=== PATIENT | female | born 1945 | race Caucasian/White ===

== ENCOUNTER 2019-11-22 08:52 | Outpatient (CLI) | payer OTHER, SELFPAY ==
--- NOTE | ~2019-11-22 | CT_ITS ---
EXAMINATION: CTA chest DATE: 11/22/2019 10:02 INDICATION: Aortic aneurysm TECHNIQUE: Computed tomographic angiography (CTA) of the chest was performed with 100 mL Omnipque-350 intravenous contrast. Maximum intensity projection 3D-reconstructions of the aorta and other arterie s were constructed by the technologist on a separate workstation. The dose-length product (DLP) was 2 94.79 mGy-cm. Automated exposure control and iterative reconstruction technique were employed. COMPARISON: 11/11/2018 FINDINGS: There is a stable 4.3 x 4.0 cm fusiform aneurysm of the ascending aorta. No aortic dissecti on is identified. There is mild dependent atelectasis. Scattered 1 to 2 mm pulmonary nodules are like ly infectious or inflammatory. There is no pleural effusion or pneumothorax. The heart size is normal . There are no pathologically enlarged thoracic lymph nodes. There is mild thoracic spondylosis. IMPRESSION: 1. Stable fusiform aneurysm of the ascending aorta without dissection. Reviewed, dictated and finalized at location A.
[2019-11-22 09:42] LABS: Estimated Glomerular Filt Rate > 60
== END 2019-11-22 08:53 | disposition home or self-care (01) ==
LOC: ANHIMG 08:55
PROVIDERS: PCP Family Medicine Adolescent Medicine; Visit Provider Internal Medicine Cardiovascular Disease
DX: I71.4 Abdominal aortic aneurysm, without rupture (principal)
CPT/HCPCS: 36415; 71275; Q9967

== ENCOUNTER 2019-12-06 12:11 | Emergency (ER) | payer OTHER, SELFPAY ==
[2019-12-06] VITALS (10 sets, daily range): BP systolic 112–148; BP diastolic 40–65; PULSE 54–76; RESP 17–24; TEMP 37; O2SAT 99–100
--- NOTE | ~2019-12-06 | XR_ITS ---
EXAMINATION: XR chest 2V 12/06/2019 12:57 INDICATION: Chest pain PROCEDURE: 2 view chest COMPARISON: 01/11/2019 FINDINGS: The lungs are clear. The cardiomediastinal silhouette is within normal limits. There are no pleural effusions. There is no pneumothorax suspected. IMPRESSION: 1: NO ACUTE CARDIOPULMONARY DISEASE. Reviewed, dictated and finalized at location A.
--- NOTE | ~2019-12-06 | CT_ITS ---
EXAMINATION: CTA chest PE protocol EXAM DATE: 12/06/2019 15:29 INDICATION: Intermittent chest pain down right arm. TECHNIQUE: Spiral CTA of the chest (pulmonary arteries) was performed with 100 cc Omnipaque 350 intr avenous contrast injection. Images were acquired during the pulmonary arterial phase. Coronal maxi mum intensity projection 3D-reconstructions were created by the technologist on dedicated workstation . Axial, coronal and sagittal reformatted images were reviewed. The dose-length product (DLP) for t his examination was 263.06 mGy-cm. The exposure was tailored according to patient size (auto mA exp osure control), and iterative reconstruction (ASIR) was used as additional dose reduction technique. Comparison is made to prior examination from 11/22/2019. FINDINGS: Pulmonary arteries are well opacified and without intraluminal filling defects. The ascen ding aorta is again mildly enlarged at 4.4 cm. No dissection.. Mild dependent atelectasis. No conflu ent consolidation. There are no pleural or pericardial effusions. Tracheobronchial tree is patent. There is no mediastinal, hilar or axillary lymphadenopathy. There is no pneumothorax. Heart no rmal in size. No evidence of coronary arterial calcification. Upper abdomen is unremarkable. The re is thoracic spondylosis without osteoblastic or osteolytic lesions identified. IMPRESSION: 1. No pulmonary emboli. 2. Mild ascending aortic aneurysm unchanged. Reviewed, dictated and finalized at location B.
--- NOTE | 2019-12-06 12:14 | ECG_ITS ---
Measurements Intervals [place] Rate: 70 P: 73 AL: 158 QRS: 2 QRSD: 88 T: 46 QT: 371 QTc: 400 Interpretive Statements SINUS RHYTHM INCOMPLETE RIGHT BUNDLE BRANCH BLOCK EARLY PRECORDIAL R/S TRANSITION BASELINE ARTIFACT- I, II BORDERLINE ECG Electronically Signed On 12-06-2019 13:32:23 CDT by Temo Garcia D.O.
[2019-12-06 12:33] LABS: Basophils Absolute Auto 0.1 K/mm3 (0.0-0.1); Basophils Percent Auto 0.9 % (0.2-1.2); Eosinophils Absolute Auto 0.5 K/mm3 (0-0.3); Hematocrit 41.3 % (37.0-47.0); Hemoglobin 13.2 g/dL (12.0-15.0); Immature Granulocyte Absolute 0.03 K/mm3 (0.00-0.031); Immature Granulocyte Percent A 0.3 % (0-0.5); Lymphocytes Absolute Auto 1.86 K/mm3 (0.9-3.2); Lymphocytes Percent Auto 20.1 % (18.3-44.2); Mean Corpuscular Hemoglobin 27.6 pg (26-34); Mean Corpuscular Volume 86.2 fl (80-100); Mean Platelet Volume 10.4 fl (7.4-10.4); Monocytes Absolute Auto 0.6 K/mm3 (0.1-0.6); Neutrophils Absolute Auto 6.3 K/mm3 (1.3-6.7); Neutrophils Percent Auto 67.7 % (45.5-73.1); Platelet Count Result 280 k/mm3 (150-375); Red Blood Count 4.79 M/mm3 (4.2-5.4); Red Cell Distribution Width 12.8 % (11.5-14.5); White Blood Count 9.2 K/mm3 (4.5-10.0)
[2019-12-06 12:42] LABS: Prothrombin Time 12.6 Seconds (11.1-14.7)
[2019-12-06 12:43] LABS: Partial Thromboplastin Time 27.4 SECONDS (22.3-36.8)
[2019-12-06 12:45] LABS: Blood Urea Nitrogen 18 mg/dL (7-17); Calcium 9.3 mg/dL (8.4-10.2); Carbon Dioxide 29 mmol/L (22-30); Chloride 104 mmol/L (98-107); Estimated Glomerular Filt Rate > 60; Glucose 93 mg/dL (65-105); Potassium 4.1 mmol/L (3.4-5.0); Sodium 140 mmol/L (137-145)
[2019-12-06] MEDS: ASPIRIN 81 MG CHEWABLE TABLET 324 MG PO (12:45)
[2019-12-06 12:56] LABS: Troponin I < 0.012 ng/mL (0.000-0.034)
--- NOTE | 2019-12-06 13:44 | ED.CHESTPAIN ---
HPI - Chest Pain General Chief Complaint: Chest Pain Stated Complaint: Chest Pain Time Seen by Provider: 12/06/19 12:43 Source: patient Mode of arrival: ambulatory Limitations: no limitations History of Present Illness HPI narrative: This is a 74 year old female that presents to the ER for intermittent left-sided chest pain for the last year. Reports this episode started when she woke up this morning. Reports it is aching. Will last sometimes for hours and resolves on its own. Reports she was seen by her carpenters helper earlier this month who increased her metoprolol dose. Reports since she has been feeling more tired. Denies fever, cough or shortness of breath. Related Data Home Medications Medication Instructions Recorded Confirmed amlodipine-benazepril cap 12/06/19 atorvastatin 12/06/19 budesonide [Pulmicort Flexhaler] INHALATION 12/06/19 metoprolol succinate PO 12/06/19 mometasone INTRANASAL 12/06/19 mometasone [Asmanex Twisthaler] INHALATION 12/06/19 Allergies Allergy/AdvReac Type Severity Reaction Status Date / Time No Known Allergies Allergy Verified 12/06/19 12:25 Review of Systems Review of Systems: Narrative: CONSTITUTIONAL: Denies fever CARDIOVASCULAR: Reports chest pain. Denies edema. RESPIRATORY: Denies cough or dyspnea. All systems reviewed & are unremarkable except as noted in HPI and below PMFSH Past Medical History Medical History (Updated 12/06/19 @ 16:28 by Parris Arredondo PA-C) History of asthma History of hyperlipidemia History of hypertension Family History Family History (Updated 06/28/10 @ 11:56 by DOCTOR UNKNOWN) Other Family history of arthritis Hypertension Social History Social History Alcohol intake: current Gender identity (if verbalized by the patient): Female Exam Narrative: Exam Narrative: GENERAL: Elderly, well-nourished, and in no acute distress. HEAD: Normocephalic, atraumatic. EYES: EOMI. NECK: Supple. No adenopathy or masses. No carotid bruits or JVD CHEST: Clear to auscultation. No respiratory distress. No wheezes rales or rhonchi HEART: Regular rate and rhythm. No murmur heard. Normal peripheral pulses. EXTREMITIES: Normal range of motion. No edema. SKIN: Warm, dry, no rash. NEURO: No focal deficits. Alert and oriented x3. PSYCH: Normal mood and affect Course Vital Signs Vital signs: Vital Signs Temperature 98.6 F 12/06/19 12:17 Pulse Rate 65 12/06/19 12:17 Respiratory Rate 24 H 12/06/19 12:17 Blood Pressure 148/65 H 12/06/19 12:17 Pulse Oximetry 100 12/06/19 12:17 Temperature 98.6 F 12/06/19 12:17 Pulse Rate 55 L 12/06/19 14:00 Respiratory Rate 20 12/06/19 14:00 Blood Pressure 112/50 L 12/06/19 14:00 Pulse Oximetry 100 12/06/19 14:00 MDM - Chest Pain MDM Narrative Medical decision making narrative: Patient presents to the emergency department for intermittent chest pain which has been ongoing for at least a year. Reports worsening over the last month. Patient is afebrile and nontoxic-appearing. Vitals are stable. CBC and metabolic panel without concerning changes. EKG without concerning changes. Baseline and 3-hour troponin are negative. D-dimer is elevated so CTA of the chest was obtained which was without pulmonary emboli. She does have a mild ascending aortic aneurysm that is unchanged. Spoke with patient's on-call carpenters helper, Dr. Johnston. Patient had a cardiac catheterization last year which was clear. Patient is felt appropriate for further outpatient evaluation. She is currently chest pain-free. Chest pain does not seem to be exertional in nature. She will follow-up with Dr. Arthur in the next couple days. Patient was given warnings to return to the ER Lab Data Attestation: I reviewed the patient's lab results. Result diagrams: 12/06/19 12:25 12/06/19 12:25 Labs: Lab Results 12/06/19 12/06/19 12/06/19 Range/Units 12:25 12:25 12:25
[2019-12-06 13:57] LABS: D Dimer 0.97 ug/mL (<0.48)
[2019-12-06 15:39] LABS: Troponin I < 0.012 ng/mL (0.000-0.034)
== END 2019-12-06 16:44 | disposition home or self-care (01) ==
PROVIDERS: Physician Assistant; Emergency Provider Emergency Medicine; PCP Family Medicine Adolescent Medicine
DX: R07.9 Chest pain, unspecified (principal); J45.909 Unspecified asthma, uncomplicated; E78.5 Hyperlipidemia, unspecified; I10 Essential (primary) hypertension
CPT/HCPCS: 36415; 71046; 71275; 80048; 84484; 85025; 85380; 85610; 85730; 93005; 99284; A9270; Q9967

== ENCOUNTER 2020-04-06 08:26 | Outpatient (CLI) | payer OTHER, SELFPAY ==
--- NOTE | ~2020-04-06 | MM_ITS ---
EXAMINATION: MM screening [facility] BI w reyna HISTORY: Screening mammogram TECHNIQUE: Craniocaudal and mediolateral oblique 3-D tomosynthesis images were obtained and synthetic 2-D images were generated. CAD analysis was submitted and interpreted. COMPARISON: , 02/2018, 01/28/2017 bilateral digital screening mammogram examinations BREAST PARENCHYMAL COMPOSITION: There are scattered areas of fibroglandular density. FINDINGS: Stable mild fibroglandular asymmetry. There is no evidence of suspicious mass, calcificatio n, or architectural distortion to suggest malignancy in either breast. There has been no suspicious i nterval change. IMPRESSION: 1. No mammographic evidence of malignancy. 2. Recommend routine screening mammography in one year. BI-RADS Category 2: Benign finding(s). Reviewed, dictated and finalized at location A.
== END 2020-04-06 08:27 | disposition home or self-care (01) ==
LOC: ANHIMG 08:27
PROVIDERS: PCP Family Medicine Adolescent Medicine; Visit Provider Obstetrics & Gynecology
DX: Z12.31 Encounter for screening mammogram for malignant neoplasm of breast (principal)
CPT/HCPCS: 77063; 77067

== ENCOUNTER → 2020-07-10 09:49 | Outpatient (CLI) | payer OTHER, SELFPAY ==
--- NOTE | ~2020-07-10 | XR_ITS ---
EXAMINATION: XR chest 2V EXAM DATE: 07/10/2020 10:07 INDICATION: Persistent cough. TECHNIQUE: Frontal and lateral projections of the chest obtained and reviewed. Comparison is made to prior examination from 12/06/2019. FINDINGS: The lungs are clear. There are no pleural effusions. The cardiomediastinal silhouette is within normal limits. There is no pneumothorax suspected. The bones and soft tissues are unremarkab le. There is aortic arteriosclerosis. There is no significant interval change. IMPRESSION: No acute cardiopulmonary findings. Reviewed, dictated and finalized at location B. 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
== END ==
PROVIDERS: PCP Family Medicine Adolescent Medicine; Visit Provider Family Medicine Adolescent Medicine
DX: R05 Cough (principal)
CPT/HCPCS: 71046

== ENCOUNTER 2020-09-03 10:48 | Emergency (ER) | payer OTHER, SELFPAY ==
[2020-09-03] VITALS (10 sets, daily range): BP systolic 112–150; BP diastolic 49–135; PULSE 63–76; RESP 16–29; TEMP 36.9; O2SAT 94–99
--- NOTE | ~2020-09-03 | CT_ITS ---
EXAMINATION: CTA chest EXAM DATE: 09/03/2020 12:05 INDICATION: Left-sided chest pain. Known thoracic aortic aneurysm. TECHNIQUE: Spiral CT of the chest following intravenous injection of 100 mL Omnipaque 350. Axial, co chucky and sagittal images were reviewed. Coronal maximum intensity pixel images of chest reviewed. M aximum intensity projection 3-D reconstructions of the aorta were created by the technologist on [employer] workstation. The dose-length product (DLP) for this examination was 340.09 mGy-cm. The exposu re was tailored according to patient size (auto mA exposure control), and iterative reconstruction (A SIR) was used as additional dose reduction technique. Comparison is made to prior examination from . FINDINGS: The ascending aorta measures 4.5 cm in AP dimension, was 4.4 cm on prior study. There is no thoracic aortic dissection. No central pulmonary emboli. Some small basilar opacities probably subse gmental atelectasis. There are no pleural or pericardial effusions. Tracheobronchial tree is paten t. There is no mediastinal, hilar or axillary lymphadenopathy. There is no pneumothorax. Heart normal in size. No evidence of coronary arterial calcification. The gallbladder is moderately dist ended, with mild wall thickening but no adjacent inflammation. Probably similar appearance to the pre vious exam but check for right upper quadrant tenderness. There is thoracic spondylosis without oste oblastic or osteolytic lesions identified. IMPRESSION: 1. Ascending aortic 4.5 cm aneurysm stable or minimally increased in size. No dissection. 2. Gallbladder is moderately distended, with mild wall thickening but no adjacent inflammation. Prob ably similar appearance to the previous exam, but check for right upper quadrant tenderness. 3. No acute cardiopulmonary findings. Reviewed, dictated and finalized at location A. IMPRESSION: 1. Ascending aortic 4.5 cm aneurysm stable or minimally increased in size. No dissection. 2. Gallbladder is moderately distended, with mild wall thickening but no adjac ent inflammation. Probably similar appearance to the previous exam, but check f or right upper quadrant tenderness. 3. No acute cardiopulmonary findings.
--- NOTE | ~2020-09-03 | XR_ITS ---
XR chest 2V 09/03/2020 12:08 Indication: Left-sided chest pain Procedure: 2 view chest Comparison: Comparison to multiple prior studies sequentially, with oldest reviewed study dated 07/06. Findings: There is lingular atelectasis/scarring. Heart size normal. Right lung clear. No significant pleural effusion, edema or pneumothorax. Impression: 1: Lingular atelectasis/scarring. Reviewed, dictated and finalized at location B. Impression: 1: Lingular atelectasis/scarring.
--- NOTE | 2020-09-03 11:17 | ECG_ITS ---
Measurements Intervals [place] Rate: 68 P: 58 ID: [id number] QRS: -2 QRSD: 84 T: 30 QT: 377 QTc: 403 Interpretive Statements SINUS RHYTHM INCOMPLETE RIGHT BUNDLE BRANCH BLOCK BASELINE WANDER- II, III, V6 BORDERLINE ECG Electronically Signed On 09-03-2020 11:45:42 CDT by Temo Garcia D.O.
[2020-09-03 11:26] LABS: Basophils Absolute Auto 0.1 K/mm3 (0.0-0.1); Basophils Percent Auto 1.1 % (0.2-1.2); Eosinophils Absolute Auto 0.6 K/mm3 (0-0.3); Eosinophils Percent Auto 7.8 % (0-4.4); Hematocrit 44.9 % (37.0-47.0); Hemoglobin 14.4 g/dL (12.0-15.0); Immature Granulocyte Absolute 0.01 K/mm3 (0.00-0.031); Immature Granulocyte Percent A 0.1 % (0-0.5); Lymphocytes Absolute Auto 1.69 K/mm3 (0.9-3.2); Lymphocytes Percent Auto 23.6 % (18.3-44.2); Mean Corpuscular HGB Conc 32.1 g/dl (32-36); Mean Corpuscular Hemoglobin 28.1 pg (26-34); Mean Corpuscular Volume 87.5 fl (80-100); Mean Platelet Volume 10.4 fl (7.4-10.4); Monocytes Absolute Auto 0.5 K/mm3 (0.1-0.6); Monocytes Percent Auto 6.3 % (2.6-8.5); Neutrophils Absolute Auto 4.4 K/mm3 (1.3-6.7); Neutrophils Percent Auto 61.1 % (45.5-73.1); Platelet Count Result 280 k/mm3 (150-375); Red Blood Count 5.13 M/mm3 (4.2-5.4); Red Cell Distribution Width 12.7 % (11.5-14.5); White Blood Count 7.2 K/mm3 (4.5-10.0)
[2020-09-03] MEDS: ASPIRIN 81 MG CHEWABLE TABLET 324 MG PO (11:33)
[2020-09-03 11:37] LABS: Anion Gap 7 mmol/L (8-16); Blood Urea Nitrogen 15 mg/dL (7-17); Calcium 9.9 mg/dL (8.4-10.2); Carbon Dioxide 32 mmol/L (22-30); Chloride 103 mmol/L (98-107); Estimated CRCL calculation 53 ml/min; Estimated Glomerular Filt Rate > 60; Glucose 96 mg/dL (65-105); INR 0.8; Potassium 3.9 mmol/L (3.4-5.0); Sodium 142 mmol/L (137-145)
[2020-09-03 11:38] LABS: Partial Thromboplastin Time 22.8 SECONDS (22.3-36.8)
[2020-09-03 11:40] LABS: D Dimer 1.64 ug/mL (<0.48)
[2020-09-03 11:49] LABS: Troponin I < 0.012 ng/mL (0.000-0.034)
--- NOTE | 2020-09-03 13:55 | ED.CHESTPAIN ---
HPI - Chest Pain General Chief Complaint: Chest Pain Stated Complaint: CHEST PAIN, CLAMMY, SOB Time Seen by Provider: 09/03/20 11:20 Source: patient Mode of arrival: ambulatory Limitations: no limitations History of Present Illness HPI narrative: 75-year-old female Complains of intermittent left-sided chest pain This is been present this time for a couple of days In addition she has kind of a tingly sensation that radiates into both arms Her airport maintenance chief is Dr. Arthur in [place] He is seen her before for these types of symptoms, and she passed a stress test and had a clean cardiac cath in the summer 2018 She has a thoracic aneurysm, stable as far as she knows She has an appointment to see him again this Thursday but was worried so came to get checked out in the meantime She reports no dizziness, no palpitations, no nausea, no shortness of breath but has a clammy sensation She also recently switched around her asthma meds which has benefitted her Related Data Home Medications Medication Instructions Recorded Confirmed amlodipine-benazepril cap 12/06/19 atorvastatin 12/06/19 budesonide [Pulmicort Flexhaler] INHALATION 12/06/19 metoprolol succinate PO 12/06/19 mometasone INTRANASAL 12/06/19 mometasone [Asmanex Twisthaler] INHALATION 12/06/19 Allergies Allergy/AdvReac Type Severity Reaction Status Date / Time No Known Allergies Allergy Verified 09/03/20 10:57 Review of Systems Review of Systems: All systems reviewed & are unremarkable except as noted in HPI and below Constitutional: Constitutional: Denies chills, Denies fatigue, Denies fever(s), Denies headache(s) and Denies weakness Eyes: Eyes: Reports no additional eye complaints and Denies change in vision ENT: Denies headache(s), Denies epistaxis, Denies nasal congestion and Denies sore throat Cardiovascular: Cardiovascular: Reports as per HPI, Reports no additional cardiovascular complaints, Reports chest pain, Denies rapid heart rate, Denies leg edema, Reports radiating jaw, neck or arm pain, Denies palpitations, Denies dyspnea and Denies slow heart rate Respiratory: Respiratory: Denies cough, Denies dyspnea and Denies wheezing Gastrointestinal: Gastrointestinal: Denies abdominal pain, Denies diarrhea, Denies nausea and Denies vomiting Genitourinary: Genitourinary: Denies hematuria, Denies urinary frequency and Denies dysuria Musculoskeletal: Musculoskeletal: Denies deformity, Denies arthralgias, Denies joint swelling, Denies muscle weakness and Denies numbness Integumentary/Breasts: Skin/Breast: Denies rash and Denies wounds Neurologic: Denies headache(s), Denies focal weakness, Denies numbness and Denies weakness Psychiatric: Psychiatric: Reports no additional psychiatric complaints Endocrine: Endocrine: Denies fatigue and Denies palpitations Hematologic/Lymphatic: Hematologic/Lymphatic: Denies easy bleeding and Denies easy bruising Allergic/Immunologic: Allergic/Immunologic: Denies wheezing PMFSH Past Medical History Medical History (Updated 09/03/20 @ 14:09 by Erick Hollis MD) History of asthma History of hyperlipidemia History of hypertension Family History Family History (Updated 06/28/10 @ 11:56 by DOCTOR UNKNOWN) Other Family history of arthritis Hypertension Social History Social History Alcohol intake: current Gender identity (if verbalized by the patient): Female Exam Const: General: no acute distress, well developed and awake Nutritional Appearance: well nourished Orientation/consciousness: patient oriented x3 (alert) Limitations: no limitations HENMT: Head: normocephalic and atraumatic Ears: external ears normal General nose exam: No nasal discharge present and no epistaxis Face and sinus: face symmetric Eyes: Conjunctivae: conjunctivae normal Sclera: sclerae normal EOM: EOMs intact bilaterally Neck: Neck: normal visual inspection, supple and no JVD Chest: Chest pal
== END 2020-09-03 14:56 | disposition home or self-care (01) ==
PROVIDERS: Emergency Medicine; Emergency Provider Emergency Medicine; PCP Family Medicine Adolescent Medicine
DX: R07.9 Chest pain, unspecified (principal); I71.2 Thoracic aortic aneurysm, without rupture; J45.909 Unspecified asthma, uncomplicated; E78.5 Hyperlipidemia, unspecified; I10 Essential (primary) hypertension; I45.10 Unspecified right bundle-branch block
CPT/HCPCS: 36415; 71046; 71275; 80048; 84484; 85025; 85380; 85610; 85730; 93005; 99284; A9270; Q9967

== ENCOUNTER 2020-11-27 14:04 | Outpatient (CLI) | payer OTHER, SELFPAY ==
--- NOTE | ~2020-11-27 | CT_ITS ---
EXAMINATION: CTA chest DATE: 11/27/2020 15:05 INDICATION: Thoracic aortic aneurysm. TECHNIQUE: Computed tomographic angiography (CTA) of the chest was performed with 100 mL Omnipaque-35 0 intravenous contrast. Automated exposure control and iterative reconstruction technique were employ ed. The dose-length product was 264.22 mGy-cm. Maximum intensity projection 3D-reconstructions of the aorta and other arteries were constructed by the technologist on a separate workstation. COMPARISON: Chest CTA 09/03/2020 FINDINGS: There is mild scarring at the lung apices. There is mild atelectasis bilaterally. There is a 3 mm nodule in right lower lobe, likely benign. No pleural effusion. The heart size is normal. No p ericardial effusion. Thoracic aorta measures 3.0 cm at the aortic valve, 3.3 cm of the sinuses of Yesi wilbert, 3.3 cm at the sinotubular junction, 4.3 cm in mid ascending aorta, 3.0 cm at the aortic isthmu s, and 2.6 cm in mid descending aorta. There is a small sliding hiatal hernia. There is mild thoracic spondylosis. IMPRESSION: 1. Ectasia of ascending aorta measuring 4.3 cm, stable from 09/03/2020. Reviewed, dictated and finalized at location A.
[2020-11-27 14:51] LABS: Estimated Glomerular Filt Rate 48
== END 2020-11-27 14:05 | disposition home or self-care (01) ==
PROVIDERS: PCP Family Medicine Adolescent Medicine; Visit Provider Internal Medicine Cardiovascular Disease
DX: I71.4 Abdominal aortic aneurysm, without rupture (principal)
CPT/HCPCS: 71275; Q9967

== ENCOUNTER 2021-07-05 08:02 | Outpatient (CLI) | payer OTHER, SELFPAY ==
--- NOTE | ~2021-07-05 | MM_ITS ---
EXAMINATION: MM screening [facility] BI w reyna HISTORY: Screening mammogram, family history of breast cancer in her sister. TECHNIQUE: Craniocaudal and mediolateral oblique 3-D tomosynthesis images were obtained and synthetic 2-D images were generated. CAD analysis was submitted and interpreted. COMPARISON: 04/06/2020, 02/21/2019, 02/09/2018 BREAST PARENCHYMAL COMPOSITION: There are scattered areas of fibroglandular density. FINDINGS: Focal asymmetry in the upper outer quadrant of the right breast stable, consistent with a b enign finding. There is no evidence of suspicious mass, calcification, or architectural distortion to suggest malignancy in either breast. There has been no suspicious interval change. IMPRESSION: 1. No mammographic evidence of malignancy. 2. Recommend routine screening mammography in one year. BI-RADS Category 2: Benign finding(s). Reviewed, dictated and finalized at location A. 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
== END 2021-07-05 08:03 | disposition home or self-care (01) ==
LOC: ANHIMG 08:04
PROVIDERS: PCP Family Medicine Adolescent Medicine; Visit Provider Obstetrics & Gynecology
DX: Z12.31 Encounter for screening mammogram for malignant neoplasm of breast (principal)
CPT/HCPCS: 77063; 77067

== ENCOUNTER 2021-09-02 08:48 | Outpatient (CLI) | payer OTHER, SELFPAY ==
--- NOTE | ~2021-09-02 | DEXA_ITS ---
Bone Density Report Name: OSCAR ARRIOLA Age: 76 Sex: Female Ethnicity: White Date of : 1945 Indication: postmenopausal; height loss; Referring Provider: DOMINIC CANNON Study: Bone densitometry was performed. Exam Date: September 02, 2021 Accession number: [id number] Bone Density: Region BMD T-score Z-score Classification AP Spine (L1, L2, L3) 1.071 0.5 2.9 Normal Femoral Neck (Left) 0.838 -0.1 2.1 Normal Total Hip (Left) 1.053 0.9 2.8 Normal Total Hip Bilateral Avg 1.037 0.8 2.7 Normal Femoral Neck (Right) 0.854 0.0 2.2 Normal Total Hip (Right) 1.019 0.6 2.5 Normal World Health Organization criteria for BMD impression classify patients as: Normal (T-score at or above -1.0), Osteopenia (T-score between -1.0 and -2.5), or Osteoporosis (T-score at or below -2.5). 10-year Fracture Risk: FRAX not reported because: All T-scores for Spine Total, Hip Total, Femoral Neck at or above -1.0 Previous Exams: Region Exam Age BMD T-score BMD Change BMD Change Date g/cm2 vs Baseline vs Previous AP Spine(L1, L2, L3) 09/02/2021 76 1.071 0.5 0.103(10.7%)# 0.153(16.6%)# 01/28/2017 71 0.919 -0.9 -0.049(-5.1%)# -0.091(-9.0%)# 06/11/2012 66 1.009 -0.1 0.041(4.3%)# 0.005(0.5%)# 10/22/2009 64 1.004 -0.1 0.036(3.7%)* 0.044(4.6%)* 10/18/2007 62 0.960 -0.5 -0.008(-0.8%) -0.008(-0.8%) 04/08/2006 60 0.968 -0.5 Total Hip(Left) 09/02/2021 76 1.053 0.9 0.018(1.8%)# -0.015(-1.4%)# 01/28/2017 71 1.068 1.0 0.033(3.2%)# 0.020(1.9%)# 06/11/2012 66 1.048 0.9 0.014(1.3%)# -0.027(-2.5%)# 10/22/2009 64 1.075 1.1 0.041(3.9%)* 0.043(4.2%)* 10/18/2007 62 1.032 0.7 -0.003(-0.2%) -0.003(-0.2%) 04/08/2006 60 1.035 0.8 Total Hip(Right) 09/02/2021 76 1.019 0.6 -0.020(-1.9%)# -0.053(-5.0%)# 01/28/2017 71 1.072 1.1 0.034(3.2%)# 0.057(5.6%)# 06/11/2012 66 1.015 0.6 -0.023(-2.2%)# -0.022(-2.1%)# 10/22/2009 64 1.037 0.8 -0.002(-0.2%) 0.011(1.1%) 10/18/2007 62 1.026 0.7 -0.013(-1.2%) -0.013(-1.2%) 04/08/2006 60 1.038 0.8 *Denotes significance at 95% confidence level, LSC for AP Spine = 0.022 g/cm2, LSC for Total Hip = 0.027 g/cm2 Clinical Information Provided by Patient: Has used the following medications: Vitamin D, Calcium Patient maximum height was 68 Drinks caffeinated beverages Onset of menses at age 15 Number of children 0
== END 2021-09-02 08:49 | disposition home or self-care (01) ==
PROVIDERS: PCP Family Medicine Adolescent Medicine; Visit Provider Obstetrics & Gynecology
DX: M85.9 Disorder of bone density and structure, unspecified (principal)
CPT/HCPCS: 77080

== ENCOUNTER 2022-02-27 09:50 | Emergency (ER) | payer OTHER, SELFPAY ==
[2022-02-27 09:56] VITALS: BP 123/60; PULSE 75; RESP 16; TEMP 36.3; O2SAT 98
--- NOTE | 2022-02-27 10:20 | ED.SKABFB ---
HPI - Skin/Abscess/Foreign Bdy General Chief complaint: Skin/Abscess/Foreign Body Stated complaint: right armpit and chest rash Time Seen by Provider: 02/27/22 10:18 Source: patient Mode of arrival: ambulatory Limitations: no limitations History of Present Illness HPI narrative: 76 y/o female presented for c/o rash to right chest spreading to axilla and under the upper right arm for 3 days. Endorses about 2 days before the rash she had right sided mid back and shoulder pain. States pain is minimal but worse when touching the lesions, when clothes rub her skin or when the arm touches her side Continues to have right upper back pain. Denies active drainage. She did not receive Shingles vaccine. Related Data Home Medications Medication Instructions Recorded Confirmed amlodipine 10 mg-benazepril 20 mg cap 12/06/19 09/27/21 capsule atorvastatin 40 mg tablet 12/06/19 09/27/21 metoprolol succinate 200 mg PO 12/06/19 09/27/21 tablet,extended release 24 hr budesonide 160 mcg-glycopyr 9 2 inh inhalation BID 08/26/21 09/27/21 mcg-formot 4.8 mcg/actuation HFA inhaler (Breztri Aerosphere) hydralazine 25 mg tablet 25 mg PO TID 08/26/21 09/27/21 hydrochlorothiazide 12.5 mg tablet 12.5 mg PO DAILY 08/26/21 09/27/21 solriamfetol 75 mg tablet (Sunosi) 75 mg PO DAILY 08/26/21 09/27/21 aspirin 81 mg tablet,delayed 81 mg PO DAILY 09/27/21 09/27/21 release (Adult Aspirin Regimen) Allergies Allergy/AdvReac Type Severity Reaction Status Date / Time No Known Allergies Allergy Verified 09/27/21 10:48 Review of Systems Review of Systems: CONSTITUTIONAL: Denies body aches, fever, chills, or sweats. EYES: Denies visual changes, redness, or discharge. ENT: Denies rhinorrhea, congestion CARDIOVASCULAR: Denies chest pain, palpitations, or edema. RESPIRATORY: Denies cough or dyspnea. GASTROINTESTINAL: Denies abdominal pain, nausea, vomiting, or diarrhea. SKIN: reports rash chest/arm NEUROLOGIC: Denies headache, numbness, or weakness. [facility] Past Medical History Medical History Aortic atherosclerosis CXR 07/2020 Diastolic dysfunction 04/2020 Hypertension Moderate aortic valve regurgitation Obstructive sleep apnea Polymyalgia rheumatica Pure hypercholesterolemia, unspecified Temporal arteritis 12/2017 Thoracic aortic aneurysm Family History Family History Sibling Breast cancer Family history of arthritis Sibling Breast cancer Mother Cerebrovascular accident Family history of arthritis Heart disease Father Hypertension Social History Social History Smoking status: Never smoker Second hand tobacco smoke exposure: No Alcohol intake: never Substance use: never Substance use type: does not use Gender identity (if verbalized by the patient): Female Sexual Orientation (if Verbalized by the Patient): Straight or Heterosexual Spiritual care concerns: No Agree to blood products: Yes Comments At time of signature, I have reviewed and agree with nursing past medical, surgical, social and family history unless otherwise noted. Please see nursing chart for further information. There is no relevant family history pertinent to the presenting complaint Exam Narrative: GENERAL: Well-appearing HEAD: Normocephalic, atraumatic. EYES: conjunctivae clear, and EOMI. ENT: Mucous membranes moist. Oropharynx without edema, erythema or lesions. NECK: Supple. No lymphadenopathy CHEST: Clear to auscultation. HEART: Regular rate and rhythm. SKIN: Warm, dry. Significant diffuse erythematous vesicular lesions c/w zoster spreading from Right mid sternal border to right breast, axilla and under the upper arm, 2 areas to right upper back approx 0.5 cm diameter; tender to palpation; no active drainage NEURO: Alert and oriented x3. Cour
== END 2022-02-27 10:36 | disposition home or self-care (01) ==
PROVIDERS: Emergency Provider Nurse Practitioner Family; PCP Family Medicine Adolescent Medicine
DX: R21 Rash and other nonspecific skin eruption (principal); I10 Essential (primary) hypertension; G47.33 Obstructive sleep apnea (adult) (pediatric); E78.00 Pure hypercholesterolemia, unspecified; B02.9 Zoster without complications
CPT/HCPCS: 99213; G0463

== ENCOUNTER 2022-04-24 08:37 | Outpatient (CLI) | payer OTHER, SELFPAY ==
--- NOTE | ~2022-04-24 | CT_ITS ---
EXAMINATION: CTA chest PE protocol DATE: 04/24/2022 09:20 INDICATION: Chest pain. Known aneurysm. Annual follow-up. TECHNIQUE: Computed tomography (CT) of the chest was performed with 100 CC Omnipaque 350 intravenous contrast. Automated exposure control and iterative reconstruction technique were employed. Exam dose: 284.81 mGy-cm total exam DLP. COMPARISON: 11/27/2020 CTA chest FINDINGS: There is bilateral apical pulmonary scarring. Stable approximately 3 mm middle lobe peripheral pulmonary nodule. Scattered occasional bilateral smaller peripheral pulmonary nodular densities, likely benign No pulmonary consolidation. No hilar or mediastinal mass lesion or lymphadenopathy. No evidence of pulmonary embolism. No pericardial or pleural effusion. Stable 4.3 cm diameter of the mid ascending aorta and 3 cm diameter at the mid aortic arch. No thorac ic aortic dissection. Normal caliber of the suprarenal abdominal aorta Normal morphology of the adrenal glands. Small sliding hiatal hernia. Prominent degenerative disc disease at C6-7 and particularly severe degenerative disc disease at C5-6 . No suspicious osteolytic or osteoblastic lesions are noted. IMPRESSION: Stable 4.3 cm diameter mid ascending aorta since 11/27/2020 Reviewed, dictated and finalized at Location [facility]. Reviewed, dictated and finalized at location B. BLENDER
[2022-04-24 09:12] LABS: Estimated Glomerular Filt Rate 44
== END 2022-04-24 08:38 | disposition home or self-care (01) ==
PROVIDERS: PCP Family Medicine Adolescent Medicine; Visit Provider Internal Medicine Cardiovascular Disease
DX: R07.9 Chest pain, unspecified (principal); I35.1 Nonrheumatic aortic (valve) insufficiency; R06.09 Other forms of dyspnea; I25.10 Atherosclerotic heart disease of native coronary artery without angina pectoris; G47.33 Obstructive sleep apnea (adult) (pediatric)
CPT/HCPCS: 71275; Q9967

== ENCOUNTER 2022-05-12 12:58 | Emergency (ER) | payer OTHER, SELFPAY ==
--- NOTE | ~2022-05-12 | XR_ITS ---
EXAMINATION: XR abdomen obstructive series DATE: 05/12/2022 13:20 INDICATION: Marcial pain and constipation TECHNIQUE: Supine and upright views of the abdomen. FINDINGS: 07/15/2006 The visualized lung parenchyma is normal.. There is a nonobstructive bowel gas pattern. Gas and stool are seen throughout the colon to the level of the rectum. There is no free air. There is moderate l umbar spondylosis. IMPRESSION: 1. No acute abdominal abnormality. Reviewed, dictated and finalized at location A. TROMYOGRAPHIC TECHNICIAN
--- NOTE | 2022-05-12 13:01 | ED.ABDPAIN ---
HPI - Abdominal Pain General Chief Complaint: Abdominal Pain Stated Complaint: CONSTIPATION Time Seen by Provider: 05/12/22 13:00 Source: patient Mode of arrival: ambulatory Limitations: no limitations History of Present Illness HPI narrative: Ms. Kramer is a 76-year-old female patient presenting to the clinic today with complaints of constipation x1 week. She reports she had a very small bowel movement on Thursday however taking MiraLax over the last week without any results. Reports she feels full and bloated. She denies any pain, nausea, vomiting, diarrhea, or noted any blood in her stool. Related Data Home Medications Medication Instructions Recorded Confirmed amlodipine 10 mg-benazepril 20 mg 1 cap PO DAILY 12/06/19 05/12/22 capsule atorvastatin 40 mg tablet 40 mg PO DAILY 12/06/19 05/12/22 metoprolol succinate 200 mg 200 mg PO DAILY 12/06/19 05/12/22 tablet,extended release 24 hr budesonide 160 mcg-glycopyr 9 2 inh inhalation BID 08/26/21 05/12/22 mcg-formot 4.8 mcg/actuation HFA inhaler (Breztri Aerosphere) hydralazine 25 mg tablet 25 mg PO TID 08/26/21 05/12/22 hydrochlorothiazide 12.5 mg tablet 12.5 mg PO DAILY 08/26/21 05/12/22 solriamfetol 75 mg tablet (Sunosi) 75 mg PO DAILY 08/26/21 05/12/22 aspirin 81 mg tablet,delayed 81 mg PO DAILY 09/27/21 05/12/22 release (Adult Aspirin Regimen) Allergies Allergy/AdvReac Type Severity Reaction Status Date / Time No Known Allergies Allergy Verified 05/12/22 13:11 Review of Systems Review of Systems: Pertinent positives per HPI. Patient denies any fever, chills, rash, headache, visual changes, dizziness, cough, runny nose, sore throat, shortness of breath, chest pain, palpitations, nausea, vomiting, diarrhea, abdominal pain, or any urinary issues. [facility] Past Medical History Medical History Aortic atherosclerosis CXR 07/2020 Diastolic dysfunction 04/2020 Hypertension Moderate aortic valve regurgitation Obstructive sleep apnea Polymyalgia rheumatica Pure hypercholesterolemia, unspecified Temporal arteritis 12/2017 Thoracic aortic aneurysm Family History Family History Sibling Breast cancer Family history of arthritis Sibling Breast cancer Mother Cerebrovascular accident Family history of arthritis Heart disease Father Hypertension Social History Social History Smoking status: Never smoker Second hand tobacco smoke exposure: No Alcohol intake: never Substance use: never Substance use type: does not use Gender identity (if verbalized by the patient): Female Sexual Orientation (if Verbalized by the Patient): Straight or Heterosexual Spiritual care concerns: No Agree to blood products: Yes Comments At the time of my signature, I reviewed and agree with the nursing past medical, surgical, social, and family history. There is no relevant family history pertinent to the patient complaint. Exam Narrative: General: Well-developed, well nourished, in no apparent distress. Head: Normocephalic, atraumatic. Cardio: Regular rate and rhythm, s1 and s2 normal, no murmur appreciated. Resp: Clear to auscultation bilaterally, no rhonchi, rales, wheezing or rubs. Abdomen: Soft, pliable, bowel sounds present in all quadrants, non-tender to palpation, no organomegly, no CVAT tenderness. Course Course Emergency Course: Portions of this record may have been created with voice recognition software. Level of Care: Express Care Visit Vital Signs Vital signs: Vital Signs Temperature 36.0 C L 05/12/22 13:03 Pulse Rate 82 05/12/22 13:03 Respiratory Rate 16 05/12/22 13:03 Blood Pressure 151/63 H 05/12/22 13:03 Pulse Oximetry 97 05/12/22 13:03 Oxygen Delivery Room Air 05/12/22 13:03 Temperature 36.0 C L 05/12/22 1
[2022-05-12 13:03] VITALS: BP 151/63; PULSE 82; RESP 16; TEMP 36; O2SAT 97
== END 2022-05-12 13:59 | disposition home or self-care (01) ==
PROVIDERS: Emergency Provider Nurse Practitioner Family; PCP Family Medicine Adolescent Medicine
DX: K59.00 Constipation, unspecified (principal); I70.0 Atherosclerosis of aorta; I10 Essential (primary) hypertension; E78.00 Pure hypercholesterolemia, unspecified; I34.0 Nonrheumatic mitral (valve) insufficiency; M35.3 Polymyalgia rheumatica
CPT/HCPCS: 74019; 99213; G0463

== ENCOUNTER 2022-07-08 08:20 | Outpatient (CLI) | payer OTHER, SELFPAY ==
--- NOTE | ~2022-07-08 | MM_ITS ---
EXAMINATION: MM screening rosmery BI w reyna HISTORY: Screening TECHNIQUE: Craniocaudal and mediolateral oblique 3-D tomosynthesis images were obtained and synthetic 2-D images were generated. CAD analysis was submitted and interpreted. COMPARISON: Comparison to multiple prior studies sequentially, with oldest reviewed study dated 07/2015. BREAST PARENCHYMAL COMPOSITION: Breast composed of scattered areas of fibroglandular density FINDINGS: There is no evidence of suspicious mass, calcification, or architectural distortion to sugg est malignancy in either breast. There has been no suspicious interval change. IMPRESSION: 1. No mammographic evidence of malignancy. 2. Recommend routine screening mammography in one year. BI-RADS Category 1: Negative Reviewed, dictated and finalized at location A. H CERTIFICATE CLERK
== END 2022-07-08 08:21 | disposition home or self-care (01) ==
PROVIDERS: PCP Family Medicine Adolescent Medicine; Visit Provider Obstetrics & Gynecology
DX: Z12.31 Encounter for screening mammogram for malignant neoplasm of breast (principal)
CPT/HCPCS: 77063; 77067

== ENCOUNTER → 2022-12-03 13:04 | Outpatient (CLI) | payer OTHER, SELFPAY ==
--- NOTE | ~2022-12-03 | XR_ITS ---
EXAMINATION: XR sinus min 3V INDICATION: Nasal congestion TECHNIQUE: Five views of the paranasal sinuses are obtained. COMPARISON: None available FINDINGS: There appears to be partial opacification of the maxillary sinuses, right greater than left . The frontal sinuses are clear. The facial bones are unremarkable. No facial fracture is identified. IMPRESSION: 1. Probable bilateral maxillary sinus, right greater than left. Consider CT of the sinuses for furthe r evaluation. Reviewed, dictated and finalized at location [] IMPRESSION: 1. Probable bilateral maxillary sinus, right greater than left. Consider CT of the sinuses for further evaluation.
== END ==
PROVIDERS: PCP Family Medicine Adolescent Medicine; Visit Provider Internal Medicine Pulmonary Disease
DX: J30.1 Allergic rhinitis due to pollen (principal); R09.81 Nasal congestion
CPT/HCPCS: 70220

== ENCOUNTER → 2023-02-16 13:51 | Outpatient (CLI) | payer OTHER, SELFPAY ==
--- NOTE | ~2023-02-16 | XR_ITS ---
Lumbosacral Spine: AP and lateral views Clinical History: Pain Findings: There is stable dextroscoliosis of lumbar spine. There is 6 mm retrolisthesis of L2 over L3 . There is advanced degenerative disc narrowing throughout the lumbar spine. There is advanced facet arthropathy throughout the lumbar spine. No fracture evident. The sacroiliac joints are normally outl ined. Impression: No acute fracture. Stable dextroscoliosis with advanced degenerative spondylosis throughout the lumbar spine. 6 mm retrolisthesis of L2 over L3. Reviewed, dictated and finalized at location . Impression: No acute fracture. Stable dextroscoliosis with advanced degenerative spondylosis throughout the sanchez mbar spine. 6 mm retrolisthesis of L2 over L3.
--- NOTE | ~2023-02-16 | XR_ITS ---
AP view of the pelvis Clinical history: Sacrococcygeal disorder Findings: No acute fracture or dislocation is seen. Osseous alignment is anatomic. Bilateral hip and SI joint spaces are preserved. Degenerative spondylosis of the lower lumbar spine noted. Soft tissues are unremarkable. Impression: Degenerative spondylosis at the lower lumbar spine. Reviewed, dictated and finalized at location . Impression: Degenerative spondylosis at the lower lumbar spine.
== END ==
PROVIDERS: PCP Family Medicine Adolescent Medicine; Visit Provider Family Medicine Adolescent Medicine
DX: M53.3 Sacrococcygeal disorders, not elsewhere classified (principal); G89.29 Other chronic pain; M54.50 Low back pain, unspecified; M43.06 Spondylolysis, lumbar region
CPT/HCPCS: 72100; 72170

== ENCOUNTER → 2023-06-17 13:38 | Outpatient (CLI) | payer OTHER, SELFPAY ==
--- NOTE | ~2023-06-17 | US_ITS ---
EXAMINATION: US pelvic complete w TV DATE: 06/17/2023 14:05 INDICATION: myomata TECHNIQUE: Multiple transabdominal and endovaginal sonographic images of the pelvis were obtained. COMPARISON: CT abdomen pelvis 12/15/2017. FINDINGS: Uterus: 4.6 x 3.5 x 2.1 cm. Endometrial complex measures 6 mm, distended by fluid. Focus of echogenic ities in the lower uterine segment with posterior shadowing, likely calcified fibroid. 2 uterine fibr oids are noted measuring 1.9 cm Right Ovary: Not visualized. Left Ovary: Not visualized. There is no free fluid in the pelvis. Echogenic material in the dependent right lateral portion of the urinary bladder. IMPRESSION: Fluid distended endometrial cavity, correlate with history of vaginal bleeding and consider endometri al sampling. Multiple uterine fibroids. Bilateral ovaries not visualized. Incidental note of echogenic material in the dependent right urinary bladder, may represent hemorrhag ic, proteinaceous, or crystalline debris, or bladder wall masses. Correlate with urinalysis and consi meghann referral for cystoscopy. Reviewed, dictated and finalized at location K. EN ROOM OPERATOR IMPRESSION: Fluid distended endometrial cavity, correlate with history of vaginal bleeding and consider endometrial sampling. Multiple uterine fibroids. Bilateral ovaries not visualized. Incidental note of echogenic material in the dependent right urinary bladder, m ay represent hemorrhagic, proteinaceous, or crystalline debris, or bladder wall masses. Correlate with urinalysis and consider referral for cystoscopy.
== END ==
PROVIDERS: PCP Family Medicine Adolescent Medicine; Visit Provider Obstetrics & Gynecology
DX: D25.9 Leiomyoma of uterus, unspecified (principal)
CPT/HCPCS: 76830; 76856

== ENCOUNTER 2023-09-11 10:26 | Outpatient (CLI) | payer OTHER, SELFPAY ==
--- NOTE | ~2023-09-11 | MM_ITS ---
EXAMINATION: MM screening romsery BI w reyna HISTORY: Screening TECHNIQUE: Craniocaudal and mediolateral oblique 3-D tomosynthesis images were obtained and synthetic 2-D images were generated. CAD analysis was submitted and interpreted. COMPARISON: Comparison to multiple prior studies sequentially, with oldest reviewed study dated 01/28. BREAST PARENCHYMAL COMPOSITION: There are scattered areas of fibroglandular density. FINDINGS: There is no evidence of suspicious mass, calcification, or architectural distortion to sugg est malignancy in either breast. There has been no suspicious interval change. IMPRESSION: 1. No mammographic evidence of malignancy. 2. Recommend routine screening mammography in one year. BI-RADS Category 1: Negative Reviewed, dictated and finalized at location A.
== END 2023-09-11 10:27 ==
LOC: MICIMG 10:27
PROVIDERS: PCP Obstetrics & Gynecology; Visit Provider Obstetrics & Gynecology
DX: Z12.31 Encounter for screening mammogram for malignant neoplasm of breast (principal)
CPT/HCPCS: 77063; 77067

== ENCOUNTER 2023-10-17 14:37 | Emergency (ER) | payer OTHER, SELFPAY ==
[2023-10-17] VITALS (17 sets, daily range): BP systolic 103–148; BP diastolic 46–69; PULSE 66–86; RESP 16–25; TEMP 36.3; O2SAT 83–100
--- NOTE | ~2023-10-17 | US_ITS ---
EXAMINATION: US venous doppler [facility] DATE: 10/17/2023 15:24 INDICATION: posterior knee pain . TECHNIQUE: Grayscale images without and with compression and Doppler images of the left lower extremi ty veins were obtained. COMPARISON: None FINDINGS: The left common femoral vein, profunda (deep) femoral vein, femoral vein, popliteal vein, peroneal v ein, posterior tibial veins, gastrocnemius vein, and greater saphenous vein are patent. Large poplite al fossa fluid collection measuring up to 10.6 cm. IMPRESSION: Patent left lower extremity veins. No evidence of deep venous thrombosis. Large Costello's cyst. Reviewed, dictated and finalized at location K.
--- NOTE | ~2023-10-17 | CT_ITS ---
EXAMINATION: CTA chest abdomen pelvis DATE: 10/17/2023 16:16 INDICATION: chest pain, Hx of TAA . TECHNIQUE: Computed tomography (CT) of the chest, abdomen, and pelvis was performed with 100 mL Omnip aque-350 intravenous contrast in the arterial phase. Automated exposure control and iterative reconst ruction technique were employed. The dose-length product was 731.24 mGy-cm. COMPARISON: X-ray chest, same date; [facility] 04/24/2022; CT abdomen pelvis 12/15/2017 FINDINGS: CHEST: Thoracic aorta: Maximum transverse diameter of the ascending aorta 4.3 cm. Maximum transverse diamete r of the descending aorta 2.8 cm. No dissection. Mild arch calcification. Lung parenchyma and airways: Mild senescent change and dependent atelectasis. Stable 3 mm right middl e lobe pulmonary nodule, likely granuloma. Thoracic inlet, axillae and chest wall: No thyroid or soft tissue mass. No axillary lymphadenopathy. Mediastinum: No mass or lymphadenopathy. The pulmonary arteries are well-opacified without evidence o f pulmonary embolism. Mildly dilated central pulmonary arteries as can be seen with pulmonary arteria l hypertension. Heart and pericardium: Normal heart size. No pericardial effusion. Coronary artery calcifications: None. Pleura: No effusion or mass. Thoracic bones: No acute osseous finding in the chest. ABDOMEN/PELVIS: Liver: Diffusely low density parenchyma. Biliary/Gallbladder: Gallbladder is normal. No bile duct dilation. Pancreas: No mass or duct dilation. Spleen: Normal. Adrenals:No mass. Kidneys: No suspicious mass, obstructing stone, or hydronephrosis. Bilateral cortical thinning. Simpl e right midpole cyst. Multiple additional bilateral subcentimeter hypodensities too small to characte rize but also likely represent cysts. GI tract: Mild distal esophageal and gastric wall edema. Mild edema of the distal ileum. Wall edema i nvolving the cecum with surrounding inflammatory change, and somewhat masslike appearing narrowing. N o small or large bowel dilation. Short nondilated appendix versus appendiceal stump. Mesentery/Peritoneum: No mass or free air. Small volume fluid in the deep pelvis Retroperitoneum: No mass Atherosclerotic abdominal aortic and/or arterial calcifications. No abdomina l aortic aneurysm or dissection. Major branch vessels are patent. Pelvis: Normal urinary bladder. Atrophic uterus with calcified fibroids Soft Tissues: Soft tissues and body wall unremarkable. Abdominopelvic bones: No acute osseous finding in the abdomen/pelvis. IMPRESSION: Stable ectasia of the descending thoracic aorta. Mild esophagitis/gastritis. Hepatic steatosis. Somewhat masslike appearing cecal and distal ileal inflammatory changes, presumably related to ileiti s and colitis. Consider CT abdomen/pelvis follow-up and/or referral for colonoscopy to exclude a ceca l mass. Small volume ascites. Reviewed, dictated and finalized at location K. IMPRESSION: Stable ectasia of the descending thoracic aorta. Mild esophagitis/gastritis. Hepatic steatosis. Somewhat masslike appearing cecal and distal ileal inflammatory changes, presum ably related to ileitis and colitis. Consider CT abdomen/pelvis follow-up and/o r referral for colonoscopy to exclude a cecal mass. Small volume ascites.
--- NOTE | ~2023-10-17 | XR_ITS ---
EXAMINATION: XR chest 1V Exam Date/Time: 10/17/2023 15:17 CDT HISTORY: Dyspnea on exertion, chest discomfort, known anuerysm Comparison: 09/03/2020. RESULT: Lines, tubes, and devices: None. Lungs and pleura: Mild biapical pleural scarring. Lingular scarring. Cardiomediastinal silhouette: Stable. Other: No acute osseous or upper abdominal finding. IMPRESSION: No acute cardiopulmonary process. Reviewed, dictated and finalized at location K.
--- NOTE | 2023-10-17 14:42 | ECG_ITS ---
SEE SCANNED COPY FOR CONFIRMED REPORT MTDD
--- NOTE | 2023-10-17 14:48 | ED.GENADULT ---
HPI - General Adult General Chief complaint: Shortness of Breath/Dyspnea Stated complaint: SOB Time Seen by Provider: 10/17/23 14:45 Source: patient Mode of arrival: ambulatory Limitations: no limitations History of Present Illness HPI narrative: This is a 78-year-old female with PMH of HTN, HOLLY, aortic regurgitation who presents to the ED with chief complaint of shortness of breath on exertion for the past 1 day. Patient reports that she had some mid chest tightness since resolved. She reports that she feels fine whenever she is sitting down symptoms do worsen she is up active. Denies any specific chest pain relates generalized tightness. She reports history asthma in the past. She wears a CPAP at night for HOLLY. She reports mild posterior left knee pain but that has been for quite some time. Denies any new leg swelling, cough. Denies fevers, chills, nausea, vomiting, syncope, numbness, weakness. Patient also notes history of thoracic aortic aneurysm that has been stable for years. Reports that has not grown from 4.2 cm since 2019. Related Data Home Medications Medication Instructions Recorded Confirmed amlodipine 10 mg-benazepril 20 mg 1 cap PO DAILY 12/06/19 05/08/23 capsule atorvastatin 40 mg tablet 40 mg PO DAILY 12/06/19 05/08/23 metoprolol succinate 200 mg 200 mg PO DAILY 12/06/19 05/08/23 tablet,extended release 24 hr budesonide 160 mcg-glycopyr 9 2 inh inhalation BID 08/26/21 05/08/23 mcg-formot 4.8 mcg/actuation HFA inhaler (Breztri Aerosphere) hydralazine 25 mg tablet 25 mg PO TID 08/26/21 05/08/23 aspirin 81 mg tablet,delayed 81 mg PO DAILY 09/27/21 05/08/23 release (Adult Aspirin Regimen) solriamfetol 75 mg tablet (Sunosi) 150 mg PO DAILY 10/09/22 05/08/23 mometasone 50 mcg/actuation nasal 2 spray intranasal DAILY 12/18/22 05/08/23 spray Allergies Allergy/AdvReac Type Severity Reaction Status Date / Time No Known Allergies Allergy Verified 10/17/23 14:45 Review of Systems Review of Systems: All systems as dictated in HPI [facility] Past Medical History Medical History Aortic atherosclerosis CXR 07/2020 Chronic headache Diastolic dysfunction 04/2020 Hypertension Moderate aortic valve regurgitation Obstructive sleep apnea Polymyalgia rheumatica Pure hypercholesterolemia, unspecified Temporal arteritis 12/2017 Thoracic aortic aneurysm Family History Family History Sibling Breast cancer Family history of arthritis Sibling Breast cancer Mother Cerebrovascular accident Family history of arthritis Heart disease Father Hypertension Social History Social History Smoking status: Never smoker Second hand tobacco smoke exposure: No Alcohol intake: never Substance use: never Substance use type: does not use Lack of Transportation: No Lack of Food: Never True Current Housing: I Have Housing Concerned About Future Housing: No Difficulty Paying Gas/Electric Bills: No Difficulty Paying for Meds: No Currently Unemployed: No Education: Bachelor's Degree Difficulty w/ Childcare or Family Care: No Living arrangements: alone Occupation/Education: retired Gender identity (if verbalized by the patient): Female Sexual Orientation (if Verbalized by the Patient): Straight or Heterosexual Spiritual care concerns: No Agree to blood products: Yes Exam Narrative: GENERAL: Well-appearing, well-nourished, and in no acute distress. HEAD: Normocephalic, atraumatic. EYES: PERRLA and EOMI. ENT: Nares clear, no rhinorrhea or epistaxis. Mucous membranes moist. Oropharynx without tonsillar hypertrophy exudate or other lesions. NECK: Supple. No adenopathy or masses. CHEST: No respiratory distress. Clear to auscultation. No wheezes rales or rhonchi HEART: Regular rate an
[2023-10-17 15:48] LABS: Basophils Absolute Auto 0.1 K/mm3 (0.0-0.1); Basophils Percent Auto 0.7 % (0.2-1.2); Eosinophils Absolute Auto 0.5 K/mm3 (0-0.3); Eosinophils Percent Auto 5.9 % (0-4.4); Hematocrit 43.8 % (37.0-47.0); Immature Granulocyte Absolute 0.03 K/mm3 (0.00-0.031); Immature Granulocyte Percent A 0.4 % (0-0.5); Lymphocytes Absolute Auto 1.54 K/mm3 (0.9-3.2); Mean Corpuscular Hemoglobin 28.3 pg (26-34); Mean Corpuscular Volume 88.7 fl (80-100); Mean Platelet Volume 10.1 fl (7.4-10.4); Monocytes Absolute Auto 0.5 K/mm3 (0.1-0.6); Monocytes Percent Auto 6.3 % (2.6-8.5); Neutrophils Absolute Auto 5.5 K/mm3 (1.3-6.7); Neutrophils Percent Auto 67.7 % (45.5-73.1); Platelet Count Result 269 k/mm3 (150-375); Red Blood Count 4.94 M/mm3 (4.2-5.4); Red Cell Distribution Width 12.9 % (11.5-14.5); White Blood Count 8.1 K/mm3 (4.5-10.0)
[2023-10-17 15:54] LABS: Alanine Aminotransferase 23 U/L (6-35); Albumin Level 4.6 g/dL (3.5-5.1); Alkaline Phosphatase 65 U/L (38-126); Anion Gap 4 mmol/L (4-12); Aspartate Amino Transferase 32 U/L (14-36); Bilirubin,Total 0.4 mg/dL (0.2-1.3); Blood Urea Nitrogen 26 mg/dL (7-17); Calcium 9.7 mg/dL (8.4-10.2); Carbon Dioxide 30 mmol/L (22-30); Chloride 105 mmol/L (98-107); Estimated CRCL calculation 41 ml/min; Estimated Glomerular Filt Rate 53; Glucose 104 mg/dL (65-110); Potassium 4.4 mmol/L (3.4-5.0); Sodium 139 mmol/L (137-145)
[2023-10-17 16:04] LABS: NT Pro B Type Natriuretic Pept 367 pg/mL (19.9-100)
[2023-10-17 16:07] LABS: Troponin I < 0.012 ng/mL (0.000-0.034)
== END 2023-10-17 17:57 | disposition home or self-care (01) ==
PROVIDERS: Emergency Provider Physician Assistant; PCP Family Medicine Adolescent Medicine
DX: R06.00 Dyspnea, unspecified (principal); M71.22 Synovial cyst of popliteal space [Baker], left knee; I35.1 Nonrheumatic aortic (valve) insufficiency; I70.0 Atherosclerosis of aorta; I71.20 Thoracic aortic aneurysm, without rupture, unspecified; I11.9 Hypertensive heart disease without heart failure; G47.33 Obstructive sleep apnea (adult) (pediatric); M35.3 Polymyalgia rheumatica; E78.00 Pure hypercholesterolemia, unspecified; Z79.82 Long term (current) use of aspirin; R94.31 Abnormal electrocardiogram [ECG] [EKG]; K76.0 Fatty (change of) liver, not elsewhere classified; K20.90 Esophagitis, unspecified without bleeding; K29.70 Gastritis, unspecified, without bleeding; R93.3 Abnormal findings on diagnostic imaging of other parts of digestive tract
CPT/HCPCS: 36415; 71045; 71275; 74174; 80053; 83880; 84484; 85025; 93005; 93971; 99284; Q9967

== ENCOUNTER 2023-10-23 10:19 | Outpatient (CLI) | payer OTHER, SELFPAY ==
--- NOTE | ~2023-10-23 | XR_ITS ---
Left Knee Technique: AP, lateral, and sunrise views were obtained. Clinical History: Pain Findings: No fracture or dislocation is seen. Osseous alignment is anatomic. Minimal degenerative spu rring noted. Soft tissues are unremarkable. No joint effusion is seen. Impression: Minimal degenerative spurring. Reviewed, dictated and finalized at location . Impression: Minimal degenerative spurring.
== END 2023-10-23 10:20 ==
LOC: MICIMG 10:19
PROVIDERS: PCP Family Medicine Adolescent Medicine; Visit Provider Family Medicine Adolescent Medicine
DX: M25.762 Osteophyte, left knee (principal)
CPT/HCPCS: 73562

== ENCOUNTER 2023-12-07 07:54 | Outpatient (CLI) | payer OTHER, SELFPAY ==
--- NOTE | ~2023-12-07 | MR_ITS ---
EXAMINATION: MR knee LT wo con DATE: 12/07/2023 08:25 INDICATION: Left knee pain. TECHNIQUE: Magnetic resonance imaging (MRI) of the left knee was performed without intravenous contra st. Sequences included axial PD-weighted FS FSE, coronal PD-weighted FSE and PD-weighted FS FSE, sagi ttal PD-weighted FSE, and sagittal T2-weighted FS FSE. COMPARISON: Left knee radiographs 10/23/2023 FINDINGS: Medial compartment: There is an undersurface horizontal tear of body of medial meniscus. There is cartilage surface irreg ularity of tibial condyle. There is partial-thickness cartilage loss of femoral condyle, deep at the posterior articular surface. Lateral compartment: There is maceration of the lateral meniscus. There is full-thickness cartilage loss of tibial condyle involving the lateral, central, medial, and posterior articular surface with mild subchondral edema- like marrow signal intensity. There is full-thickness cartilage loss of femoral condyle involving the medial and posterior articular surface with mild subchondral edema-like marrow signal intensity and small subchondral cysts. There is extensive partial thickness cartilage loss of femoral condyle. Oste ophytes are noted. Patellofemoral compartment: There is shallow partial-thickness cartilage loss of patella and trochlea. Osteophytes are noted. Ligaments and tendons: The anterior and posterior cruciate ligaments are normal. Medial collateral ligament is normal. There are changes of prior sprain of fibular collateral ligament characterized by increased signal intensi ty proximally. There is mild patellar tendinopathy. Fluid: There is a moderate-sized knee joint effusion. There is a large Costello cyst. There is mild prepatellar and superficial infrapatellar bursitis. IMPRESSION: 1. Severe chondrosis of lateral compartment, moderate chondrosis of medial compartment, and mild juve drosis of patellofemoral compartment. 2. Tears of medial and lateral menisci. 3. Moderate-sized knee joint effusion. 4. Large Costello's cyst. Reviewed, dictated and finalized at location A. IMPRESSION: 1. Severe chondrosis of lateral compartment, moderate chondrosis of medial comp artment, and mild chondrosis of patellofemoral compartment. 2. Tears of medial and lateral menisci. 3. Moderate-sized knee joint effusion. 4. Large Costello's cyst.
== END 2023-12-07 07:55 ==
PROVIDERS: PCP Family Medicine Adolescent Medicine; Visit Provider Family Medicine Adolescent Medicine
DX: M94.262 Chondromalacia, left knee (principal); S83.282A Other tear of lateral meniscus, current injury, left knee, initial encounter; S83.242A Other tear of medial meniscus, current injury, left knee, initial encounter; X58.XXXA Exposure to other specified factors, initial encounter; M25.462 Effusion, left knee; M71.22 Synovial cyst of popliteal space [Baker], left knee
CPT/HCPCS: 73721

== ENCOUNTER 2023-12-09 09:19 | Emergency (ER) | payer OTHER, SELFPAY ==
--- NOTE | ~2023-12-09 | CT_ITS ---
EXAMINATION: CT abdomen pelvis w con DATE: 12/09/2023 11:50 INDICATION: Abdominal pain TECHNIQUE: Computed tomography (CT) of the abdomen and pelvis was performed with 100 mL Omnipaque-350 intravenous contrast. Automated exposure control and iterative reconstruction technique were employe d. The dose-length product was 572.49 mGy-cm. COMPARISON: 10/17/2023 FINDINGS: Mild bronchial wall thickening in the bilateral lower lungs. There is also mild bibasilar atelectasis . Heart size is normal. No pericardial or pleural effusion. There is mild intrahepatic biliary ductal dilation. Common bile duct remains normal measuring up to 5 mm in maximal diameter. Small region of mild wall thickening at the tip the gallbladder fundus suggestive of focal adenomyomatosis. Spleen, p ancreas and bilateral adrenal glands are normal. 1-2 mm nonobstructing stone at a lower pole calyx of the right kidney. Bilateral renal cysts, tiny on the left and measuring up to 2.0 cm on the right. T here is mild colonic diverticulosis with a sigmoid predominance. There is no adjacent inflammatory c hange to suggest diverticulitis. Small bowel and appendix are normal. There are couple calcified dege nerated fibroids. Bladder is normal. No free intraperitoneal gas or fluid. No pathologically enlarged abdominal or pelvic lymphadenopathy. There is calcified atherosclerosis of the aorta and many of the other arteries. Mild lumbar dextrocurvature with severe spondylosis. IMPRESSION: 1. Mild intrahepatic biliary ductal dilation with normal caliber common bile duct. Correlate with alexia er function tests and if clinically indicated could consider MRCP for further evaluation. 2. 2 mm nonobstructing right renal stone. 3. Fibroid uterus. Reviewed, dictated and finalized at location B. IMPRESSION: 1. Mild intrahepatic biliary ductal dilation with normal caliber common bile du ct. Correlate with liver function tests and if clinically indicated could consi meghann MRCP for further evaluation. 2. 2 mm nonobstructing right renal stone. 3. Fibroid uterus.
[2023-12-09 09:49] VITALS: BP 146/75; PULSE 71; RESP 18; TEMP 36.6; O2SAT 97
[2023-12-09 10:57] VITALS: BP 130/54; PULSE 64; RESP 18; O2SAT 97
[2023-12-09 11:04] LABS: Basophils Absolute Auto 0.1 K/mm3 (0.0-0.1); Basophils Percent Auto 1.3 % (0.2-1.2); Eosinophils Absolute Auto 0.9 K/mm3 (0-0.3); Eosinophils Percent Auto 12.3 % (0-4.4); Hematocrit 42.3 % (37.0-47.0); Immature Granulocyte Absolute 0.02 K/mm3 (0.00-0.031); Immature Granulocyte Percent A 0.3 % (0-0.5); Lymphocytes Absolute Auto 1.72 K/mm3 (0.9-3.2); Lymphocytes Percent Auto 22.7 % (18.3-44.2); Mean Corpuscular HGB Conc 33.1 g/dl (32-36); Mean Corpuscular Hemoglobin 28.6 pg (26-34); Mean Corpuscular Volume 86.5 fl (80-100); Monocytes Absolute Auto 0.4 K/mm3 (0.1-0.6); Monocytes Percent Auto 5.8 % (2.6-8.5); Neutrophils Absolute Auto 4.4 K/mm3 (1.3-6.7); Neutrophils Percent Auto 57.6 % (45.5-73.1); Platelet Count Result 261 k/mm3 (150-375); Red Blood Count 4.89 M/mm3 (4.2-5.4); White Blood Count 7.6 K/mm3 (4.5-10.0)
[2023-12-09 11:11] LABS: Appearance Urine Clear (Clear); Bilirubin Urine Negative (Negative); Blood Urine Negative (Negative); Color Urine Yellow (Yellow); Glucose Urine UA Negative (Negative); Ketones Urine Negative (Negative); Leukocyte Esterase Ur Negative LEU/UL (Negative); Nitrate Urine Negative (Negative); Protein Urine Negative (Negative); Specific Grav Ur 1.004 (1.001-1.035); Urobilinogen Urine 0.2 mg/dL (<2.0)
[2023-12-09 11:15] LABS: Alanine Aminotransferase 23 U/L (6-35); Albumin Level 4.4 g/dL (3.5-5.1); Alkaline Phosphatase 76 U/L (38-126); Anion Gap 7 mmol/L (4-12); Aspartate Amino Transferase 34 U/L (14-36); Bilirubin,Total 0.5 mg/dL (0.2-1.3); Blood Urea Nitrogen 17 mg/dL (7-17); Calcium 9.5 mg/dL (8.4-10.2); Carbon Dioxide 29 mmol/L (22-30); Chloride 107 mmol/L (98-107); Estimated CRCL calculation 45 ml/min; Estimated Glomerular Filt Rate 60; Glucose 96 mg/dL (65-110); Lactic Acid Reflex 0.9 mmol/L (0.7-2.0); Lipase 81 U/L (23-300); Potassium 4.1 mmol/L (3.4-5.0); Sodium 143 mmol/L (137-145)
[2023-12-09 11:17] LABS: Add Urine Microscopic? NO
--- NOTE | 2023-12-09 12:16 | ED.GENADULT ---
HPI - General Adult General Chief complaint: Back Pain/Injury Stated complaint: back pain for days Time Seen by Provider: 12/09/23 10:09 History of Present Illness HPI narrative: Reanna Kramer is a 78 y/o female who presents with reports of right flank pain that radiates around to her right lower abdomen for about 1 week. Last normal BM was today, no nausea/vomiting no fever/ chills Related Data Home Medications Medication Instructions Recorded Confirmed amlodipine 10 mg-benazepril 20 mg 1 cap PO DAILY 12/06/19 11/17/23 capsule atorvastatin 40 mg tablet 40 mg PO DAILY 12/06/19 11/17/23 metoprolol succinate 200 mg 200 mg PO DAILY 12/06/19 11/17/23 tablet,extended release 24 hr budesonide 160 mcg-glycopyr 9 2 inh inhalation BID 08/26/21 11/17/23 mcg-formot 4.8 mcg/actuation HFA inhaler (Breztri Aerosphere) hydralazine 25 mg tablet 25 mg PO TID 08/26/21 11/17/23 aspirin 81 mg tablet,delayed 81 mg PO DAILY 09/27/21 11/17/23 release (Adult Aspirin Regimen) solriamfetol 75 mg tablet (Sunosi) 150 mg PO DAILY 10/09/22 11/17/23 mometasone 50 mcg/actuation nasal 2 spray intranasal DAILY 12/18/22 11/17/23 spray Allergies Allergy/AdvReac Type Severity Reaction Status Date / Time No Known Allergies Allergy Verified 10/23/23 08:17 Review of Systems Review of Systems: CONSTITUTIONAL: Denies fever, chills, or sweats. EYES: Denies visual changes, redness, or discharge. ENT: Denies rhinorrhea, congestion, sore throat, or otalgia. CARDIOVASCULAR: Denies chest pain, palpitations, or edema. RESPIRATORY: Denies cough or dyspnea. GASTROINTESTINAL: Reports right lower abdominal pain GENITOURINARY: Denies dysuria or hematuria. SKIN: Denies rash or itching. MUSCULOSKELETAL: Reports right flank pain for 1 week PSYCHIATRIC: Denies anxiety or depression. [facility] Past Medical History Medical History Aortic atherosclerosis (2021) CXR 07/2020 Chronic headache Diastolic dysfunction 04/2020 Moderate aortic valve regurgitation Obstructive sleep apnea Polymyalgia rheumatica Pure hypercholesterolemia, unspecified Temporal arteritis 12/2017 Thoracic aortic aneurysm Family History Family History Sibling Breast cancer Family history of arthritis Sibling Breast cancer Mother Cerebrovascular accident Family history of arthritis Heart disease Father Hypertension Social History Social History Smoking status: Never smoker Second hand tobacco smoke exposure: No Alcohol intake: never Substance use: never Substance use type: does not use Lack of Transportation: No Lack of Food: Never True Current Housing: I Have Housing Concerned About Future Housing: No Difficulty Paying Gas/Electric Bills: No Difficulty Paying for Meds: No Currently Unemployed: No Education: Bachelor's Degree Difficulty w/ Childcare or Family Care: No Living arrangements: alone Occupation/Education: retired Gender identity (if verbalized by the patient): Female Sexual Orientation (if Verbalized by the Patient): Straight or Heterosexual Spiritual care concerns: No Agree to blood products: Yes Exam Narrative: GENERAL: Well-appearing, well-nourished, and in no acute distress. HEAD: Normocephalic, atraumatic. EYES: PERRLA and EOMI. ENT: Nares clear, no rhinorrhea or epistaxis. Mucous membranes moist. Oropharynx without tonsillar hypertrophy exudate or other lesions. NECK: Supple. No adenopathy or masses. No carotid bruits or JVD CHEST: Clear to auscultation. No respiratory distress. No wheezes rales or rhonchi HEART: Regular rate and rhythm. No murmur heard. Normal peripheral pulses. ABDOMEN: Soft normal active bowel sounds, she denies pain with palpation but states she can 'feel' it EXTREMITIES: Normal range of motion. No edema. SK
== END 2023-12-09 12:30 | disposition home or self-care (01) ==
PROVIDERS: Emergency Provider Nurse Practitioner Family; PCP Family Medicine Adolescent Medicine
DX: S39.012A Strain of muscle, fascia and tendon of lower back, initial encounter (principal); R10.9 Unspecified abdominal pain; Z79.82 Long term (current) use of aspirin; G47.33 Obstructive sleep apnea (adult) (pediatric); E78.00 Pure hypercholesterolemia, unspecified
CPT/HCPCS: 36415; 74177; 80053; 81003; 83605; 83690; 85025; 99284; Q9967

== ENCOUNTER 2023-12-28 00:46 | Day surgery (SDC) | payer OTHER, SELFPAY ==
[2023-12-11 14:47] VITALS: BMI 25.9
[2023-12-28 12:58] VITALS: BP 156/65; PULSE 83; RESP 20; TEMP 36.4; O2SAT 99; BMI 24.5
[2023-12-28] MEDS: LACTATED RINGERS 1,000 ML 150 ML IV CONT (13:07)
--- NOTE | 2023-12-28 13:38 | PM.HPGS ---
History of Present Illness History of Present Illness Consent: Risks, benefits, and alternatives have been discussed and questions answered. Patient agrees to proceed with procedure. Chief complaint: Abnormal findings on diagnostic imaging of other Narrative: Reanna Kramer is a 78 year old female here for colonoscopy, last one more than 10 years ago. She had incidental finding of possible inflammation cecum/ileum, can not rule out malignancy, denies any diarrhea- actually at baseline she has constipation, currently no pain (she was having back pain) Review of Systems Review of Systems: All systems reviewed & are unremarkable except as noted in HPI and below PMFSH Past Medical History Medical History Aortic atherosclerosis (2021) CXR 07/2020 Chronic headache Diastolic dysfunction 04/2020 Moderate aortic valve regurgitation Obstructive sleep apnea Polymyalgia rheumatica Pure hypercholesterolemia, unspecified Temporal arteritis 12/2017 Thoracic aortic aneurysm Family History Family History Sibling Breast cancer Family history of arthritis Sibling Breast cancer Mother Cerebrovascular accident Family history of arthritis Heart disease Father Hypertension Social History Social History Smoking status: Never smoker Second hand tobacco smoke exposure: No Alcohol intake: never Substance use: never Substance use type: does not use Lack of Transportation: No Lack of Food: Never True Current Housing: I Have Housing Concerned About Future Housing: No Difficulty Paying Gas/Electric Bills: No Difficulty Paying for Meds: No Currently Unemployed: No Education: Bachelor's Degree Difficulty w/ Childcare or Family Care: No Living arrangements: alone Occupation/Education: retired Gender identity (if verbalized by the patient): Female Sexual Orientation (if Verbalized by the Patient): Straight or Heterosexual Spiritual care concerns: No Agree to blood products: Yes Meds Home Medications and Allergies Home Medications Medication Instructions Recorded Confirmed Type amlodipine 10 mg-benazepril 20 mg 1 cap PO DAILY 12/06/19 12/28/23 History capsule atorvastatin 40 mg tablet 40 mg PO DAILY 12/06/19 12/28/23 History metoprolol succinate 200 mg 200 mg PO DAILY 12/06/19 12/28/23 History tablet,extended release 24 hr budesonide 160 mcg-glycopyr 9 2 inh inhalation BID 08/26/21 12/28/23 History mcg-formot 4.8 mcg/actuation HFA inhaler (Breztri Aerosphere) hydralazine 25 mg tablet 25 mg PO TID 08/26/21 12/28/23 History aspirin 81 mg tablet,delayed 81 mg PO DAILY 09/27/21 12/28/23 History release (Adult Aspirin Regimen) solriamfetol 75 mg tablet (Sunosi) 150 mg PO DAILY 10/09/22 12/28/23 History mometasone 50 mcg/actuation nasal 2 spray intranasal DAILY 12/18/22 12/28/23 History spray meloxicam 7.5 mg tablet 7.5 - 15 mg PO DAILY #60 tabs 06/29/23 12/28/23 Rx lidocaine 5 % topical patch 1 patch topical DAILY #30 ea 12/09/23 12/28/23 Rx pantoprazole 40 mg tablet,delayed 40 mg PO BID #60 tabs 12/09/23 12/28/23 Rx release montelukast 10 mg tablet 10 mg PO DAILY 12/11/23 12/28/23 History Allergies Allergy/AdvReac Type Severity Reaction Status Date / Time No Known Allergies Allergy Verified 12/28/23 12:57 Vital Signs Vital Signs - 24 hr 12/28/23 12:58 Temperature 97.6 F Pulse Rate 83 Respiratory Rate 20 Blood Pressure 156/65 H Pulse Oximetry 99 Oxygen Delivery Room Air Exam Const: General: comfortable and no acute distress HENMT: Face/Nose/Sinus: Normal nares present Eyes: General: appearance normal, both eyes and all related structures Neck: Neck: no JVD Resp: Auscultation: clear to auscultation bilaterally Cardio: Rate: regular rate Rhythm: regular rhythm GI: Inspecti
--- NOTE | 2023-12-28 13:39 | WPDANESEPPF ---
Anes - Initial Pre Proc Eval Procedure: Operation Date: 12/28/23 14:00 Proposed Procedures p Colonoscopy - Radhames Negron MD Date/Time: 12/28/23 13:39 Surgeon: Radhames Negron MD Pre Op Diagnosis: Abnormal findings on diagnostic imaging of other Patient Data Age: 78 Gender: F Height: 1.73 m Weight: 73.3 kg Last Vital Signs Temp 97.6 F 12/28/23 12:58 Pulse 83 12/28/23 12:58 Resp 20 12/28/23 12:58 BP 156/65 H 12/28/23 12:58 Pulse Ox 99 12/28/23 12:58 O2 Del Method Room Air 12/28/23 12:58 Allergies Allergy/AdvReac Type Severity Reaction Status Date / Time No Known Allergies Allergy Verified 12/28/23 12:57 Home Medications Medication Instructions Recorded Confirmed Type amlodipine 10 mg-benazepril 20 mg 1 cap PO DAILY 12/06/19 12/28/23 History capsule atorvastatin 40 mg tablet 40 mg PO DAILY 12/06/19 12/28/23 History metoprolol succinate 200 mg 200 mg PO DAILY 12/06/19 12/28/23 History tablet,extended release 24 hr budesonide 160 mcg-glycopyr 9 2 inh inhalation BID 08/26/21 12/28/23 History mcg-formot 4.8 mcg/actuation HFA inhaler (Breztri Aerosphere) hydralazine 25 mg tablet 25 mg PO TID 08/26/21 12/28/23 History aspirin 81 mg tablet,delayed 81 mg PO DAILY 09/27/21 12/28/23 History release (Adult Aspirin Regimen) solriamfetol 75 mg tablet (Sunosi) 150 mg PO DAILY 10/09/22 12/28/23 History mometasone 50 mcg/actuation nasal 2 spray intranasal DAILY 12/18/22 12/28/23 History spray meloxicam 7.5 mg tablet 7.5 - 15 mg PO DAILY #60 tabs 06/29/23 12/28/23 Rx lidocaine 5 % topical patch 1 patch topical DAILY #30 ea 12/09/23 12/28/23 Rx pantoprazole 40 mg tablet,delayed 40 mg PO BID #60 tabs 12/09/23 12/28/23 Rx release montelukast 10 mg tablet 10 mg PO DAILY 12/11/23 12/28/23 History Patient hx anesthesia problems: none Family hx anesthesia problems: none Results Review: All pre-operative results and documents have been reviewed as part of the pre-operative evaluation. [facility] Past Medical History Medical History Aortic atherosclerosis (2021) CXR 07/2020 Chronic headache Diastolic dysfunction 04/2020 Moderate aortic valve regurgitation Obstructive sleep apnea Polymyalgia rheumatica Pure hypercholesterolemia, unspecified Temporal arteritis 12/2017 Thoracic aortic aneurysm Family History Family History Sibling Breast cancer Family history of arthritis Sibling Breast cancer Mother Cerebrovascular accident Family history of arthritis Heart disease Father Hypertension Social History Social History Smoking status: Never smoker Second hand tobacco smoke exposure: No Alcohol intake: never Substance use: never Substance use type: does not use Lack of Transportation: No Lack of Food: Never True Current Housing: I Have Housing Concerned About Future Housing: No Difficulty Paying Gas/Electric Bills: No Difficulty Paying for Meds: No Currently Unemployed: No Education: Bachelor's Degree Difficulty w/ Childcare or Family Care: No Living arrangements: alone Occupation/Education: retired Gender identity (if verbalized by the patient): Female Sexual Orientation (if Verbalized by the Patient): Straight or Heterosexual Spiritual care concerns: No Agree to blood products: Yes Anes - Eval Final PreProcedure Day of Procedure 12/28/23 13:39 Patient weight: normal Heart: regular rate and rhythm Lungs: clear to auscultation Airway: Mallampati scale class II Neurological: alert and oriented Last oral intake: >/= 8 hours ASA classification: III Emergent: no Anesthetic plan: proceed Anesthesia type and monitoring: general GIVS and standard monitoring Results Review: All pre-operative results and documents have been reviewe
[2023-12-28 13:58] VITALS: BP 123/52; PULSE 87; RESP 18; O2SAT 100
[2023-12-28 14:08] VITALS: BP 134/66; PULSE 74; RESP 18; O2SAT 100
[2023-12-28 14:18] VITALS: BP 133/65; PULSE 77; RESP 18; O2SAT 100
== END 2023-12-28 14:30 | disposition home or self-care (01) ==
PROVIDERS: PCP Family Medicine Adolescent Medicine; Visit Provider Internal Medicine Gastroenterology
PROC: 0DJD8ZZ Inspection of Lower Intestinal Tract, Via Natural or Artificial Opening Endoscopic (ICD-10-PCS; CPT 45378; principal; 2023-12-28 14:00)
DX: K64.8 Other hemorrhoids (principal); K57.30 Diverticulosis of large intestine without perforation or abscess without bleeding; G47.33 Obstructive sleep apnea (adult) (pediatric); E78.00 Pure hypercholesterolemia, unspecified; R51.9 Headache, unspecified; I70.0 Atherosclerosis of aorta; I71.20 Thoracic aortic aneurysm, without rupture, unspecified; Z79.51 Long term (current) use of inhaled steroids; Z79.82 Long term (current) use of aspirin; Z86.79 Personal history of other diseases of the circulatory system; Z80.3 Family history of malignant neoplasm of breast; Z82.49 Family history of ischemic heart disease and other diseases of the circulatory system
CPT/HCPCS: 45378; J2704; J7120

== ENCOUNTER 2024-11-04 13:46 | Outpatient (CLI) | payer OTHER, SELFPAY ==
--- NOTE | ~2024-11-04 | MM_ITS ---
EXAMINATION: MM screening rosmery BI w reyna HISTORY: Screening TECHNIQUE: Craniocaudal and mediolateral oblique 3-D tomosynthesis images were obtained and synthetic 2-D images were generated. CAD analysis was submitted and interpreted. COMPARISON: Comparison to multiple prior studies sequentially, with oldest reviewed study dated 09/2017. BREAST PARENCHYMAL COMPOSITION: Not dense: There are scattered areas of fibroglandular density. FINDINGS: There is no evidence of suspicious mass, calcification, or architectural distortion to sugg est malignancy in either breast. There has been no suspicious interval change. IMPRESSION: 1. No mammographic evidence of malignancy. 2. Recommend routine screening mammography in one year. BI-RADS Category 1: Negative Reviewed, dictated and finalized at location A.
== END 2024-11-04 13:47 | disposition home or self-care (01) ==
LOC: MICIMG 13:47
PROVIDERS: PCP Family Medicine Adolescent Medicine; Visit Provider Obstetrics & Gynecology
DX: Z12.31 Encounter for screening mammogram for malignant neoplasm of breast (principal)
CPT/HCPCS: 77063; 77067

== ENCOUNTER 2024-11-25 07:58 | Outpatient (CLI) | payer OTHER, SELFPAY ==
--- OUTSIDE RECORDS SUMMARY | 2024-11-25 08:01 | XMS_ITS | Clinical Summary ---
Author Organization [facility] Office Center Address [address] [place] [address] Care Team Providers Care Inspector Rubber Stamp Die Name Role Phone Rafael Hernández MD Primary Care Prov ider Allergies No known active allergies Medications multivit-min/f errous fumarate (MULTI VITAMIN ORAL) Multi Vitamin Active aspirin 81 mg enteric coated tablet Take 1 tablet (81 mg total) by mouth daily 09/26/19 22 Active ciprofloxacin- dexAMETHasone (CIPRODEX) otic suspension as needed 09/10/19 22 Active montelukast (SINGULAIR) 10 mg tablet Take 1 tablet (10 mg total) by mouth daily 02/17/20 23 Active meloxicam (MOBIC) 7.5 mg tablet TAKE 1-2 TABLETS ORALLY DAILY 09/24/19 24 Active mometasone (NASONEX) 50 mcg/actuation nasal spray SPRAY 2 SPRAYS INTO EACH NOSTRIL EVERY DAY 8 g 5 12/16/19 24 Active albuterol HFA (PROVENTIL HFA,VENTOLIN HFA,PROAIR HFA) 90 mcg/actuation inhaler Inhale 2 puffs every 4 (four) hours as needed for wheezing 1 each 3 12/18/19 24 Active metoprolol XL (TOPROL-XL) 200 mg extended release tablet TAKE 1 TABLET BY MOUTH EVERY DAY 90 tablet 3 03/30/20 24 Active budesonide-gly copyr-formoter ol (BREZTRI) 160-9-4.8 mcg/actuation inhaler Inhale 2 puffs 2 (two) times a day 32.1 g 3 04/19/20 24 026 Active hydrALAZINE (APRESOLINE) 25 mg tablet TAKE 1 TABLET BY MOUTH THREE TIMES A DAY 270 tablet 3 07/04/19 25 Active atorvastatin (LIPITOR) 40 mg tablet TAKE 1 TABLET BY MOUTH EVERY DAY AT NIGHT 90 tablet 3 07/04/19 25 Active solriamfetoL (Sunosi) 150 mg tablet Take 1 tablet (150 mg total) by mouth daily 90 tablet 10/21/19 25 025 Active Additional Information Patient taking differently: 75 mgoral Daily, Reported on 11/21/2024 amLODIPine-lesley azepriL (LOTREL) 10-20 mg per capsule TAKE 1 CAPSULE BY MOUTH EVERY DAY 90 capsule 1 11/18/19 25 Active amLODIPine-lesley azepriL (LOTREL) 10-20 mg per capsule TAKE 1 CAPSULE BY MOUTH EVERY DAY 90 capsule 1 03/21/20 24 025 Discontinued Active Problems Problem Noted Date Diagnosed Date Thoracic aortic aneurysm without rupture 025 Teeth grinding 04/19/2024 Essential hypertension 09/02/2023 Hypersomnia 02/25/2021 Moderate persistent asthma without complication 01/17/2021 Non-smoker 01/17/2021 Solitary pulmonary nodule 01/17/2021 Hiatal hernia 01/17/2021 Obstructive sleep apnea 11/13/2020 Non-seasonal allergic rhinitis due to pollen 01/2021 Fatigue 11/13/2020 Mild intermittent asthma without complication Psychophysiological insomnia 11/13/2020 Encounters Date Type Department Care Team Description 11/21/2024 8:00 AM CDT Office Visit [facility] Cardiology at [address] [place] [address] Eladio Morrow MD Essential hypertension (Primary Dx); Aneurysm of ascending aorta without rupture 10/20/2024 2:30 PM CDT Office Visit [facility] Pulmonology [address] [place] [address] Carmen Lerma MD Moderate persistent asthma without complication (Primary Dx); Psychophysiological insomnia; Hiatal hernia; Teeth grinding; Obstructive sleep apnea; Hypersomnia; Solitary pulmonary nodule; Non-smoker; Non-seasonal allergic rhinitis due to pollen from Last 3 Months Medical History Medical History Date Comments Asthma Hypertension Sleep apnea, obstructive Heart disease 2019 Family History Medical History Relation Name Comments Hearing loss Father Jose Velez Arthritis Mother Vearl Heart disease Mother Vearl Heart failure Mother Vearl Stroke Mother Vearl Cancer Sister 1 Rere Reyna COPD Sister 2 Lois Velez Cancer Sister 2 Lois Velez Relation Name Status Comments Father Jose Velez Mother Vearl Sister 1 Rere Reyna Sister 2 Lois Velez Social History Tobacco Use Types Packs/Day Years Used Date Smoking Tobacco: Never Passive Smoke Exposure: Past Smokeless Tobacco: Never Tobacco Cessation:Counseling Given: Not Answered AUDIT-C Answer Date Recorded Q1: How often do you have a drink containing alcohol? Never 02/25/2023 Q2: How many drinks containi ng alcohol do you have on a typical day when you are drinking? Patient does not drink Q3: How often do you have si x or more drinks on one occasion? 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 Gender Identity Female 11/21/2022 12:59 PM CDT Sexual Orientation Not on file Obstetrics History Last Filed Vital Signs Vital Sign Reading Time Taken Comments Blood Pressure 138/70 11/21/2024 7:55 AM CDT Pulse 74 11/21/2024 7:55 AM CDT Temperature 36.6 C (97.9 F) 10/20/2024 2:44 PM CDT Respiratory Rate 18 10/20/2024 2:44 PM CDT Oxygen Saturation 99% 11/21/2024 7:55 AM CDT Inhaled Oxygen Concentration - - Weight 79.4 kg (175 lb) 11/21/2024 7:55 AM CDT Height 172.7 cm (5' 8) 11/21/2024 7:55 AM CDT Body Mass Index 26.61 11/21/2024 7:55 AM CDT Plan of Treatment Health Maintenance Due Date Last Done Comments Depression Screening 1944 Fall Risk Assessment 1944 Osteoporosis Screening-Bone Density Scan 1944 DTaP/Tdap/Td Vaccine (1 - Tdap) 08/14/1955 Hepatitis B Screening 1962 Zoster Vaccine (1 of 2) 1994 Well Visit 65+ 2009 Influenza Vaccine (Season Ended) 2025 03/12/2021, 02/29/2020, 03/11/2019, Additional history exists Pneumococcal vaccine 65+ Completed 020, 03/11/2019, 03/27/2016 Insurance [facility] [employer] [facility] Care Teams Inspector Rubber Stamp Die Relationship Specialty Start Date End Date Rafael Hernández MD [address] [place] [address] PCP - General Family Medicine 11/13/20
--- OUTSIDE RECORDS SUMMARY | 2024-11-25 08:01 | XMS_ITS | Clinical Summary ---
Author Organization [facility] Address [address] [place] [address] Care Team Providers Care President [place] Name Role Phone Rafael Hernández MD Primary Care Provider + Source Comments [facility],non-owned Affiliates and Associated Physician Practices is amultiple site organization consisting of ambulatory clinics and hospital sitesin [place], [place], [place] and [place]. This disclosure is being madepursuant to the Care Everywhere program and may not contain all information available regarding this patient. Last updated 18.[facility] Allergies No known active allergies Medications * Be aware that medications may not be up to date on this document. Alwaysverify current medications with the patient. amLODIPine-flash zepril (LOTREL) 10-20 MG capsule Take 1 (one) capsule by mouth every 24 hours Active hydrALAZINE (APRESOLINE) 25 MG tablet Take 1 (one) tablet by mouth 2 times daily Active metoprolol succinate XL 24hr (TOPROL XL) 200 MG tablet Take 1 (one) tablet by mouth once daily 2 Active solriamfetol (SUNOSI) 75 MG tablet Take 75 mg by mouth once daily Active Budeson-Glycopy rrol-Formoterol (BREZTRI AEROSPHERE IN) Inhale 1 puff by mouth 2 times daily Active albuterol HFA (Proventil; Ventolin; Proair) 108 (90 Base) MCG/ACT inhaler Inhale 2 (two) puffs by mouth every 4 hours as needed for Shortness of Breath 4 Active atorvastatin (Lipitor) 40 MG tablet Take 1 (one) tablet by mouth at bedtime Active Aspirin Low Dose 81 MG tablet Take 1 (one) tablet by mouth once daily 4 Active meloxicam (Mobic) 7.5 MG tablet Take 1 (one) tablet by mouth as needed Active mometasone (Nasonex) 50 MCG/ACT nasal spray [place] 2 (two) sprays into the nose once daily 4 Active Active Problems Problem Noted Date Diagnosed Date Mixed hearing loss, bilateral 04/19/2020 Trochanteric bursitis of right hip 11/19/2017 Encounter for therapeutic drug level monitoring 06/12/2016 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 (AF LURIA, FLUZONE TRIVALENT; 6MO+) (IIV3) 03/28/2016 INFLUENZA VACCINE 03/12/2021 INFLUENZA VACCINE, HIGH-DOSE , QUADR. (FLUZONE HIGH-DOSE QUADRIVALENT; 65Y+), 0.7 ML (HD-IIV4) 02/29/2020,03/11/2019 PNEUMOCOCCAL PPSV23 04/18/2020 Pneumococcal Pcv13 Conj 03/11/2019,03/28/2016 Family History Medical History Relation Name Comments Hypertension Father Heart Disease Mother Cancer Paternal Grandfather Cancer Sister Relation Name Status Comments Father Mother Paternal Grandfather Sister Social History Tobacco Use Types Packs/Day Years Used Date Smoking Tobacco: Never Smokeless Tobacco: Never Tobacco Cessation:Counseling Given: Not Answered Alcohol Use Standard Drinks/Week Comments No 0 (1 standard drink = 0.6 oz pur e alcohol) Comments Unknown Sex and Gender Information Value Date Recorded Sex Assigned at Not on file 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 Gender Identity Not on file Sexual Orientation Not on file Last Filed Vital Signs Vital Sign Reading Time Taken Comments Blood Pressure 156/72 01/04/2024 1:18 PM CDT Pulse 68 01/04/2024 1:18 PM CDT Temperature 36.6 C (97.8 F) 08/10/2019 1:42 PM COPY MACHINE OPERATOR Respiratory Rate 18 11/13/2016 10:51 AM CDT Oxygen Saturation 99% 04/16/2017 9:57 AM COPY MACHINE OPERATOR Inhaled Oxygen Concentration - - Weight 76.3 kg (168 lb 3.2 oz) 01/04/2024 1:18 P M CDT Height 172.7 cm (5' 8) 01/04/2024 1:18 PM CDT Body Mass Index 25.57 01/04/2024 1:18 PM CDT Plan of Treatment Upcoming Encounters Date Type Department Care Team (Late st Contact Info) Description 12/26/2024 1:30 PM CDT Office Visit [facility] - ENT [address] [place] [address] [phone] Luther Banda, PhD [address] [place] [address] [address] [place] [address] 12/26/2024 2:00 PM CDT Testing Visit [facility] - ENT [address] [place] [address] [phone] Luther Banda, PhD [address] [place] [address] [address] [place] [address] Health Maintenance Due Date Last Done Comments BONE DENSITY TESTING 1944 DTAP/TDAP/TD VACCINES (1 - Tdap) 08/14/1963 ZOSTER VACCINE (1 of 2) 1994 Respiratory Syncytial Virus (RSV) Vaccine Pt: or over 60 yrs (1 - 1-dose 75+ series) 08/14/2019 COVID-19 VACCINE ( - season) 2024 DEPRESSION SCREENING 06/08/2024 INFLUENZA VACCINE (Season Ended) 2025 03/12/2021, 02/29/2020, 03/11/2019, Additional history exists PNEUMOCOCCAL VACCINE 50+ Completed 020, 03/11/2019, 03/28/2016 HEPATITIS B VACCINE Aged Out No longe r eligible based on patient's age to complete this topic HIB VACCINE Aged Out No longer eligi ble based on patient's age to complete this topic HPV VACCINE Aged Out No longer eligi ble based on patient's age to complete this topic MENINGOCOCCAL (Group B) VACCINE SHARED DECISION-MAKING Aged Out No longer eligible based on patient's age to complete this topic MENINGOCOCCAL GROUPS A/C/Y/W VACCINE Aged Out No longer eligible based on patient's age to complete this topic Insurance [employer] Care Teams President [place] Relationship Specialty Start Date End Date Rafael Hernández MD [address] [place] [id number] PCP - General 03/16/08
--- OUTSIDE RECORDS SUMMARY | 2024-11-25 08:01 | XMS_ITS | Referral Summary ---
Author Organization [facility] Address [address] [place] [address] Care Team Providers Care It Support Specialist Name Role Phone Rafael Hernández MD Primary Care Prov ider Encounters Date Type Department Care Team Description 11/21/2024 8:00 AM CDT Office Visit [facility] Cardiology at [address] [place] [phone] Eladio Morrow MD Essential hypertension (Primary Dx); Aneurysm of ascending aorta without rupture 10/20/2024 2:30 PM CDT Office Visit [facility] Pulmonology [address] [facility] [address] [place] [address] Carmen Lerma MD Moderate persistent asthma without complication (Primary Dx); Psychophysiological insomnia; Hiatal hernia; Teeth grinding; Obstructive sleep apnea; Hypersomnia; Solitary pulmonary nodule; Non-smoker; Non-seasonal allergic rhinitis due to pollen from Last 3 Months Allergies No known active allergies Medications multivit-min/f [...] differently: 75 mgoral Daily, Reported on 11/21/2024 amLODIPine-lesely azepriL (LOTREL) 10-20 mg per capsule TAKE [...] intermittent asthma without complication Psychophysiological insomnia 11/13/2020 Social History Tobacco Use Types Packs/Day Years [...] on file 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
== END 2024-11-25 07:59 | disposition home or self-care (01) ==
LOC: ANHAUDASC 07:59
PROVIDERS: PCP Family Medicine Adolescent Medicine; Visit Provider Family Medicine Adolescent Medicine
DX: H72.91 Unspecified perforation of tympanic membrane, right ear (principal); H90.6 Mixed conductive and sensorineural hearing loss, bilateral; Z97.4 Presence of external hearing-aid
CPT/HCPCS: 92557; 92567

== ENCOUNTER 2025-01-09 10:33 | Outpatient (CLI) | payer OTHER, SELFPAY ==
--- NOTE | 2025-01-09 11:00 | ECG_ITS ---
Test Date: 2025-01-09 11:06:56 Measurements Intervals [place] Rate: 64 P: 67 AK: 167 QRS: -5 QRSD: 87 T: 34 QT: 392 QTc: 405 Interpretive Statements SINUS RHYTHM POSSIBLE RIGHT VENTRICULAR CONDUCTION DELAY BASELINE ARTIFACT- II, III, AVF BORDERLINE ECG No previous ECG available for comparison Electronically Signed On 01-09-2025 11:16:21 CDT by Temo Garcia D.O.
--- OUTSIDE RECORDS SUMMARY | 2025-01-09 11:05 | XMS_ITS | Clinical Summary ---
Author Organization [facility] Address [address] [place] [address] Care Team Providers Care Manager Neonatal Name Role Phone Rafael Hernández MD Primary Care Prov ider Allergies No known active allergies Medications multivit-min/fe rrous fumarate (MULTI VITAMIN ORAL) Multi Vitamin Active aspirin 81 mg enteric coated tablet Take 1 tablet (81 mg total) by mouth daily 2 Active ciprofloxacin-d exAMETHasone (CIPRODEX) otic suspension as needed 2 Active montelukast (SINGULAIR) 10 mg tablet Take 1 tablet (10 mg total) by mouth daily 3 Active meloxicam (MOBIC) 7.5 mg tablet TAKE 1-2 TABLETS ORALLY DAILY 4 Active mometasone (NASONEX) 50 mcg/actuation nasal spray SPRAY 2 SPRAYS INTO EACH NOSTRIL EVERY DAY 8 g 5 4 Active albuterol HFA (PROVENTIL HFA,VENTOLIN HFA,PROAIR HFA) 90 mcg/actuation inhaler Inhale 2 puffs every 4 (four) hours as needed for wheezing 1 each 3 4 Active metoprolol XL (TOPROL-XL) 200 mg extended release tablet TAKE 1 TABLET BY MOUTH EVERY DAY 90 tablet 3 4 Active budesonide-glyc opyr-formoterol (BREZTRI) 160-9-4.8 mcg/actuation inhaler Inhale 2 puffs 2 (two) times a day 32.1 g 3 4 11/22/19 26 Active hydrALAZINE (APRESOLINE) 25 mg tablet TAKE 1 TABLET BY MOUTH THREE TIMES A DAY 270 tablet 3 5 Active atorvastatin (LIPITOR) 40 mg tablet TAKE 1 TABLET BY MOUTH EVERY DAY AT NIGHT 90 tablet 3 5 Active solriamfetoL (Sunosi) 150 mg tablet Take 1 tablet (150 mg total) by mouth daily 90 tablet 5 01/19/20 25 Active Additional Information Patient taking differently: 75 mgoral Daily, Reported on 11/21/2024 amLODIPine-flash zepriL (LOTREL) 10-20 mg per capsule TAKE 1 CAPSULE BY MOUTH EVERY DAY 90 capsule 1 5 Active Active Problems Problem Noted Date Diagnosed [...] Encounters Date Type Department Care Team Description 12/29/2024 10:06 AM CDT - 12/29/2024 11:59 PM CDT Hospital Encounter [facility] Respiratory [address] [place] [address] Moderate persistent asthma without complication; Psychophysiological insomnia; Hiatal hernia; Teeth grinding; Obstructive sleep apnea; Hypersomnia Discharge Disposition: Discharge to home or self care 11/21/2024 8:00 AM CDT Office Visit [facility] Cardiology at [address] [place] [address] Eladio Morrow MD Essential hypertension (Primary Dx); Aneurysm of ascending aorta without rupture 10/20/2024 2:30 PM CDT Office Visit [facility] Pulmonology [address] [facility] [address] [place] [phone] Carmen Lerma MD Moderate persistent asthma without [...] 2 Lois Velez Cancer Sister 2 Lois Rosie Relation Name Status Comments Father Jose Velez Mother Leelaarminh Sister 1 Rere Reyna Sister 2 Lois [...] on file 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 Gender Identity Female 11/21/2022 12:59 PM CDT [...] 1994 Well Visit 65+ 2009 Influenza Vaccine (#1) 2025 1, 02/29/2020, 03/11/2019, Additional history exists Pneumococcal vaccine 65+ Completed 020, 03/11/2019, 03/27/2016 Procedures Procedure Name Priority Date/Time Associated Diagnosis Comments PULMONARY FUNCTION TEST (PFT) Routine 12/29/2024 11:02 AM CDT Moderate persistent asthma without complication Psychophysiological insomnia Hiatal hernia Teeth grinding Obstructive sleep apnea Hypersomnia from Last 3 Months Results * Pulmonary Function Test - (12/29/2024 11:02 AM CDT) FVC POST 3.00 L 12/29/2024 10:58 AM CDT [facility] FEV1 POST 2.18 L 12/29/2024 10:58 AM CDT [facility] [id number] 72.81 % 12/29/2024 10:58 AM CDT [facility] AKG05-15% POST 1.37 L/s 12/29/2024 10:58 AM CDT [facility] PEF POST 6.69 L/s 12/29/2024 10:58 AM CDT [facility] DLCOc SB 16.60 ml/(min*mm Hg) 12/29/2024 10:58 AM CDT [facility] DLCO/VA PRE 4.01 ml/(min*mm Hg*L) 12/29/2024 10:58 AM CDT [facility] VA 4.14 L 12/29/2024 10:58 AM CDT [facility] TLC PRE 6.06 L 12/29/2024 10:58 AM CDT [facility] VC PRE 3.10 L 12/29/2024 10:58 AM CDT [facility] IC PRE 2.44 L 12/29/2024 10:58 AM CDT [facility] FRC PL PRE 3.71 L 12/29/2024 10:58 AM CDT [facility] ERV PRE 0.75 L 12/29/2024 10:58 AM CDT [facility] RV PRE 2.96 L 12/29/2024 10:58 AM CDT [facility] RAW PRE 3.31 cmH2O*s/L 12/29/2024 10:58 AM CDT [facility] VTG 4.32 L 12/29/2024 10:58 AM CDT [facility] FVC PRE 2.99 L 12/29/2024 10:58 AM CDT [facility] FEV1 PRE 2.11 L 12/29/2024 10:58 AM T [facility] [id number] 70.67 % 12/29/2024 10:58 AM T [facility] AMB58-59% PRE 1.27 L/s 12/29/2024 10:58 AM [facility] PEF PRE 7.71 L/s 12/29/2024 10:58 AM [facility] Anatomical Region Laterality Modality PFT 12/29/2024 10:0 9 AM CDT Narrative 01/02/2025 3:50 PM CDT PFT INTERPRETATION Spirometry: Normal There is no significant response to bronchodilator administration. This does not preclude the use of bronchodilator therapy if clinically indicated. Flow volume loop: Normal/unrevealing Lung volumes: Mild air trapping DLCO: Normal diffusion Electronically signed by Tiffanie Frederick MD Carmen Lerma MD PFT ORDERABLES Final Resul t from Last 3 Months Insurance [facility] Care Teams Manager Neonatal Relationship Specialty Start Date End Date Rafael Hernández MD [address] [place] [id number] PCP - General Family Medicine 11/13/20
--- OUTSIDE RECORDS SUMMARY | 2025-01-09 11:05 | XMS_ITS | Referral Summary ---
Author Organization [facility] Address [address] [place] [address] Care Team Providers Care Project Product Manager Name Role Phone Rafael Hernández MD Primary Care Prov ider Encounters Date Type Department Care Team Description 12/29/2024 10:06 AM CDT - 12/29/2024 11:59 PM CDT Hospital Encounter [facility] Respiratory [address] [place] [address] Moderate persistent asthma without complication; Psychophysiological insomnia; Hiatal hernia; Teeth grinding; Obstructive sleep apnea; Hypersomnia Discharge Disposition: Discharge to home or self care 11/21/2024 8:00 AM CDT Office Visit [facility] Cardiology at [address] [place] [address] Eladio Morrow MD Essential hypertension (Primary Dx); Aneurysm of ascending aorta without rupture 10/20/2024 2:30 PM CDT Office Visit [facility] Pulmonology [address] [facility] [address] [place] [address] Carmen Lerma MD Moderate persistent asthma without complication (Primary Dx); Psychophysiological insomnia; Hiatal hernia; Teeth grinding; Obstructive sleep apnea; Hypersomnia; Solitary pulmonary nodule; Non-smoker; Non-seasonal allergic rhinitis due to pollen from Last 3 Months Allergies No known active allergies Medications multivit-min/fe [...] on file 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 Gender Identity Female 11/21/2022 12:59 PM CDT [...] CDT Plan of Treatment Not on file Procedures Procedure Name Priority Date/Time Associated Diagnosis Comments PULMONARY FUNCTION TEST (PFT) Routine 12/29/2024 11:02 AM CDT Moderate persistent asthma without complication Psychophysiological insomnia Hiatal hernia Teeth grinding Obstructive sleep apnea Hypersomnia from Last 3 Months Results * Pulmonary Function Test - (12/29/2024 11:02 AM CDT) FVC POST 3.00 L 12/29/2024 10:58 AM CDT [facility] FEV1 POST 2.18 L 12/29/2024 10:58 AM CDT [facility] [id number] 72.81 % 12/29/2024 10:58 AM CDT [facility] HIA37-95% POST 1.37 L/s 12/29/2024 10:58 AM CDT [facility] PEF POST 6.69 L/s 12/29/2024 10:58 AM CDT [facility] DLCOc SB 16.60 ml/(min*mm Hg) 12/29/2024 10:58 AM CDT [facility] DLCO/VA PRE 4.01 ml/(min*mm Hg*L) 12/29/2024 10:58 AM CDT [facility] VA 4.14 L 12/29/2024 10:58 AM CDT [facility] TLC PRE 6.06 L 12/29/2024 10:58 AM CDT [facility] VC PRE 3.10 L 12/29/2024 10:58 AM CDT [facility] IC PRE 2.44 L 12/29/2024 10:58 AM CDT [facility] FRC PL PRE 3.71 L 12/29/2024 10:58 AM CDT [facility] ERV PRE 0.75 L 12/29/2024 10:58 AM CDT [facility] RV PRE 2.96 L 12/29/2024 10:58 AM CDT [facility] RAW PRE 3.31 cmH2O*s/L 12/29/2024 10:58 AM CDT [facility] VTG 4.32 L 12/29/2024 10:58 AM CDT [facility] FVC PRE 2.99 L 12/29/2024 10:58 AM CDT [facility] FEV1 PRE 2.11 L 12/29/2024 10:58 AM CDT [facility] [id number] 70.67 % 12/29/2024 10:58 AM CDT [facility] QNA97-01% PRE 1.27 L/s 12/29/2024 10:58 AM CDT [facility] PEF PRE 7.71 L/s 12/29/2024 10:58 AM CDT [facility] Anatomical Region Laterality Modality PFT 12/29/2024 10:0 [...] Resul t from Last 3 Months Insurance [facility] Care Teams Project Product Manager Relationship Specialty Start Date End Date Rafael Hernández MD [address] [place] [address] PCP - General Family Medicine 11/13/20
--- OUTSIDE RECORDS SUMMARY | 2025-01-09 11:05 | XMS_ITS | Clinical Summary ---
Author Organization [facility] Address [address] [facility] [place] [address] Care Team Providers Care Silverware Cleaner Name Role Phone Rafael Hernández MD Primary Care Provider + Source Comments [facility],non-owned Affiliates and Associated Physician Practices is amultiple site organization consisting of ambulatory clinics and hospital sitesin [place], [place], [place] and [place]. This disclosure is being madepursuant to the Care Everywhere program and may not contain all information available regarding this patient. 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 Gender Identity Not on file Sexual Orientation Not on file Last Filed Vital Signs Vital Sign Reading Time Taken Comments Blood Pressure 156/72 01/04/2024 1:18 PM CDT Pulse 68 01/04/2024 1:18 PM CDT Temperature 36.6 C (97.8 F) 08/10/2019 1:42 PM SUPERVISOR COLD ROLLING Respiratory Rate 18 11/13/2016 10:51 AM CDT Oxygen Saturation 99% 04/16/2017 9:57 AM SUPERVISOR COLD ROLLING Inhaled Oxygen Concentration - - Weight 76.3 kg (168 lb 3.2 oz) 01/04/2024 1:18 P M CDT Height 172.7 cm (5' 8) 01/04/2024 1:18 PM CDT Body Mass Index 25.57 01/04/2024 1:18 PM CDT Plan of Treatment Health Maintenance Due Date Last Done Comments BONE DENSITY TESTING 1945 DTAP/TDAP/TD VACCINES (1 - Tdap) 08/14/1963 ZOSTER VACCINE (1 of 2) 1994 Respiratory Syncytial Virus (RSV) Vaccine Pt: or over 60 yrs (1 - 1-dose 75+ series) 08/14/2019 COVID-19 VACCINE ( - season) 2024 DEPRESSION SCREENING 06/08/2024 INFLUENZA VACCINE (#1) 2025 1, 02/29/2020, 03/11/2019, Additional history exists PNEUMOCOCCAL VACCINE [...] complete this topic Insurance [employer] Care Teams Silverware Cleaner Relationship Specialty Start Date End Date Rafael Hernández MD [address] [address] PCP - General 03/16/08
[2025-01-09 11:20] LABS: Hematocrit 43.5 % (37.0-47.0); Hemoglobin 13.9 g/dL (12.0-15.0)
[2025-01-09 11:31] LABS: Hemoglobin A1C 5.7 % (<5.7)
[2025-01-09 11:46] LABS: Albumin Level 4.3 g/dL (3.5-5.1); Estimated Glomerular Filt Rate > 60; Glucose 89 mg/dL (65-110)
== END 2025-01-09 10:34 | disposition home or self-care (01) ==
LOC: ANHLAB 10:37
PROVIDERS: PCP Family Medicine Adolescent Medicine; Visit Provider Orthopaedic Surgery
DX: R94.31 Abnormal electrocardiogram [ECG] [EKG] (principal); M17.12 Unilateral primary osteoarthritis, left knee; E78.00 Pure hypercholesterolemia, unspecified
CPT/HCPCS: 36415; 82040; 82565; 82947; 83036; 85014; 85018; 93005

== ENCOUNTER 2025-02-01 08:00 | Outpatient (RCR) | payer OTHER, SELFPAY | END 2025-03-28 23:59 | disposition home or self-care (01) | LOC: ANHAUDASC 08:00 | PROVIDERS: PCP Family Medicine Adolescent Medicine; Visit Provider Family Medicine Adolescent Medicine | DX: Z46.1 Encounter for fitting and adjustment of hearing aid (principal) | CPT/HCPCS: 99199; V5260 ==

== ENCOUNTER 2025-02-17 09:55 | Outpatient (CLI) | payer OTHER, SELFPAY ==
--- OUTSIDE RECORDS SUMMARY | 2025-02-17 10:43 | XMS_ITS | Clinical Summary ---
Author Organization [facility] Address [address] [place] [address] Care Team Providers Care J2Ee Architect Name Role Phone Rafael Hernández MD Primary [...] 1-2 TABLETS ORALLY DAILY 09/24/19 24 Active albuterol HFA (PROVENTIL HFA,VENTOLIN HFA,PROAIR [...] NIGHT 90 tablet 3 07/04/19 25 Active amLODIPine-lesley azepriL (LOTREL) 10-20 mg per capsule TAKE 1 CAPSULE BY MOUTH EVERY DAY 90 capsule 1 11/18/19 25 Active Sunosi 150 mg tablet TAKE 1 TABLET BY MOUTH EVERY DAY 90 tablet 02/08/20 25 Active mometasone (NASONEX) 50 mcg/actuation nasal spray Administer 2 sprays into each nostril daily 17 g 1 02/14/20 25 Active solriamfetoL (Sunosi) 150 mg tablet Take 1 tablet (150 mg total) by mouth daily 90 tablet 10/21/19 25 025 Discontinued mometasone (NASONEX) 50 mcg/actuation nasal spray SPRAY 2 SPRAYS INTO EACH NOSTRIL EVERY DAY 17 g 1 01/19/20 25 025 Discontinued(Re order) Active Problems Problem Noted Date Diagnosed Date [...] Encounters Date Type Department Care Team Description 02/13/2025 Telephone [facility] Pulmonary [place] [address] [place] [address] Carmen Lerma MD 02/03/2025 Telephone [facility] Pulmonology [address] [place] [address] Carmen Lerma MD Med Refill 12/29/2024 10:06 AM CDT - 12/29/2024 11:59 PM CDT Hospital Encounter [facility] Respiratory [address] [place] [id number] Moderate persistent asthma without complication; Psychophysiological insomnia; Hiatal hernia; Teeth grinding; Obstructive sleep apnea; Hypersomnia Discharge Disposition: Discharge to home or self care 11/21/2024 8:00 AM CDT Office Visit [facility] Cardiology at [address] [place] [phone] Eladio Morrow MD Essential hypertension (Primary Dx); Aneurysm of ascending aorta without rupture from Last 3 Months Medical History Medical [...] Name Status Comments Father Jose Velez Mother Leelaarl Sister 1 Rere Reyna Sister 2 Lois Rosie Social History Tobacco Use Types Packs/Day Years [...] on file 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 Gender Identity Female 11/21/2022 12:59 PM CDT [...] POST 3.00 L 12/29/2024 10:58 AM CDT [facility] FEV1 POST 2.18 L 12/29/2024 10:58 AM CDT [facility] [id number] 72.81 % 12/29/2024 10:58 AM CDT [facility] SNC77-09% POST 1.37 L/s 12/29/2024 10:58 AM CDT [facility] PEF POST 6.69 L/s 12/29/2024 10:58 AM CDT [facility] DLCOc SB 16.60 ml/(min*mm Hg) 12/29/2024 10:58 AM CDT [facility] DLCO/VA PRE 4.01 ml/(min*mm Hg*L) 12/29/2024 10:58 AM CDT [facility] VA 4.14 L 12/29/2024 10:58 AM CDT [facility] TLC PRE 6.06 L 12/29/2024 10:58 AM CDT [facility] VC PRE 3.10 L 12/29/2024 10:58 AM CDT [facility] IC PRE 2.44 L 12/29/2024 10:58 AM CDT [facility] FRC PL PRE 3.71 L 12/29/2024 10:58 AM CDT [facility] ERV PRE 0.75 L 12/29/2024 10:58 AM CDT [facility] RV PRE 2.96 L 12/29/2024 10:58 AM CDT [facility] RAW PRE 3.31 cmH2O*s/L 12/29/2024 10:58 AM CDT [facility] VTG 4.32 L 12/29/2024 10:58 AM CDT [facility] FVC PRE 2.99 L 12/29/2024 10:58 AM CDT [facility] FEV1 PRE 2.11 L 12/29/2024 10:58 AM T [facility] [id number] 70.67 % 12/29/2024 10:58 AM T [facility] STK99-70% PRE 1.27 L/s 12/29/2024 10:58 AM [facility] PEF PRE 7.71 L/s 12/29/2024 10:58 AM T [facility] Anatomical Region Laterality Modality PFT 12/29/2024 10:0 [...] Resul t from Last 3 Months Insurance [facility] Care Teams J2Ee Architect Relationship Specialty Start Date End Date Rafael Hernández MD PCP - General Family Medicine 11/13/20
--- OUTSIDE RECORDS SUMMARY | 2025-02-17 10:43 | XMS_ITS | Clinical Summary ---
Author Organization [facility] [email or web address] Address [address] [place] [address] Care Team Providers Care Box Inspector Name Role Phone Rafael Hernández MD Primary Care Provider + Source Comments [facility] [email or web address],non-owned Affiliates and Associated Physician Practices is amultiple site organization consisting of ambulatory clinics and hospital sitesin [place], [place], [place] and [place]. This disclosure is being madepursuant to the Care Everywhere program and may not contain all information available regarding this patient. Last updated 18.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 Gender Identity Not on file Sexual Orientation Not on file Last Filed Vital Signs Vital Sign Reading Time Taken Comments Blood Pressure 156/72 01/04/2024 1:18 PM CDT Pulse 68 01/04/2024 1:18 PM CDT Temperature 36.6 C (97.8 F) 08/10/2019 1:42 PM ENERGY ADVISOR Respiratory Rate 18 11/13/2016 10:51 AM CDT Oxygen Saturation 99% 04/16/2017 9:57 AM ENERGY ADVISOR Inhaled Oxygen Concentration - - Weight 76.3 [...] yrs (1 - 1-dose 75+ series) 08/14/2019 DEPRESSION SCREENING 06/08/2024 COVID-19 VACCINE (1 - 2023- season) 2025 INFLUENZA VACCINE (#1) 2025 1, 02/29/2020, 03/11/2019, [...] complete this topic Insurance [employer] Care Teams Box Inspector Relationship Specialty Start Date End Date aRfael Hernández MD [phone] [address] PCP - General 03/16/08
[2025-02-17 11:05] LABS: Hematocrit 42.8 % (37.0-47.0); Hemoglobin 13.9 g/dL (12.0-15.0); Immature Granulocyte Percent A 0.1 % (0-0.5); Lymphocytes Absolute Auto 1.69 K/mm3 (0.9-3.2); Mean Corpuscular HGB Conc 32.5 g/dl (32-36); Mean Corpuscular Hemoglobin 28.5 pg (26-34); Mean Corpuscular Volume 87.9 fl (80-100); Nucleated Red Blood Cells Absolute Auto 0.000 K/mm3 (0.0-0.012); Nucleated Red Blood Cells Perc 0.0 % (0.0-0.2); Platelet Count Result 261 k/mm3 (150-375); Red Blood Count 4.87 M/mm3 (4.2-5.4); White Blood Count 6.9 K/mm3 (4.5-10.0)
[2025-02-17 12:15] LABS: MRSA (PCR) NOT DETECTED (NOT DETECTE)
== END 2025-02-17 09:56 | disposition home or self-care (01) ==
LOC: ANHSURGERY 09:59
PROVIDERS: PCP Family Medicine Adolescent Medicine; Visit Provider Orthopaedic Surgery
DX: M17.12 Unilateral primary osteoarthritis, left knee (principal); Z01.818 Encounter for other preprocedural examination
CPT/HCPCS: 80307; 85025; 87641

== ENCOUNTER 2025-03-07 00:31 | Day surgery (SDC) | payer OTHER, SELFPAY ==
[2025-02-17 10:12] VITALS: BP 132/50; PULSE 74; RESP 16; TEMP 36.8; O2SAT 99; BMI 27.7
--- NOTE | 2025-02-17 10:35 | PC.NURSE ---
Report to the Outpatient Waiting Room, entrance under the green pavilion located off [facility], at time _8:30AM____ on date __03/07/25___. Planned Procedure Time: __10:30AM____.? Time changes happen often and if your time is changed the preop area will call you the afternoon before. - You and your visitor will be asked to self-screen and do not enter if you have any COVID symptoms. Please call surgeon if you need to reschedule. - A mask is optional within the hospital at this time. Patients may have clear liquids (water, carbonated beverages, clear teas, apple juice) until 3 hours prior to surgery (7:30AM) with a maximum of 20 ounces. - No food from midnight until time of surgery and no smoking, or chewing tobacco (or any form of nicotine). No chewing gum, candy or mints. Take only the following medications with a SIP of water on the morning of surgery: ____BREZTRI INHALER, HYDRALAZINE MAY USE ALBUTEROL INHALER NEEDED DO NOT STOP ANY OF YOUR OTHER PRESCRIPTION MEDICATIONS PRIOR TO SURGERY EXCEPT THE FOLLOWING Hold all vitamins and supplements for 3 days per anesthesiologist. LAST DOSE 03/03/25 Medications to discontinue per physician __HOLD ASPIRIN 7 DAYS PRE-OP PER DR WHALEY Date to take last dose____02/27/25 Please no make-up, nail kyrgyz, hairspray, perfume, deodorant, or body powder the day of surgery.? No jewelry (including any body piercings) or valuables the day of surgery, leave them at home.? Please take a shower or bath the night before, or the morning of, surgery with an antibacterial soap.? Wear comfortable, loose fitting clothing.? - Jewelry must be removed prior to entering the operating room.? Rings and piercings that are not removed may be cut off. - The hospital will not accept responsibility for valuables.? - Please leave all valuables, including medications, at home the day of surgery. If you are going home after surgery, a licensed driver's license examiner must drive you home.? - NO public transportation without another adult if you receive anesthesia. - We recommend that an adult stay with you for 24 hours following discharge. - We also recommend that you do not drive, make important decision, drink alcoholic beverages, or take any drugs that were not prescribed by your health care provider for at least 24 hours after your discharge time. Follow any additional instructions given to you from your surgeon. Telephone instructions given to ____PATIENT and asked if any additional questions and then verbalized understanding. Patient advised to call surgeon office or pre surgery nurse liaison [phone] if any additional questions.
[2025-03-07] VITALS (16 sets, daily range): BP systolic 110–144; BP diastolic 45–64; PULSE 57–73; RESP 12–20; TEMP 35.6–36.5; O2SAT 92–100
--- NOTE | ~2025-03-07 | XR_ITS ---
EXAMINATION: [id number], 03/07/2025 12:40 CDT HISTORY: POST OP LEFT TKA COMPARISON: No comparisons available. Findings: No acute fracture or malalignment. Prosthesis intact Soft tissues unremarkable. Impression: No acute fracture or malalignment. Reviewed, dictated and finalized at location P. Impression: No acute fracture or malalignment.
--- OUTSIDE RECORDS SUMMARY | 2025-03-07 00:34 | XMS_ITS | Clinical Summary ---
Author Organization [facility] [employer] Address [address] [place] [address] Care Team Providers Care Soda Dialyzer Name Role Phone Rafael Hernández MD Primary Care Provider + Source Comments [facility] [employer],non-owned Affiliates and Associated Physician Practices is amultiple site organization consisting of ambulatory clinics and hospital sitesin [place] and [place]. This disclosure is being madepursuant to the Care Everywhere program and may not contain all information available regarding this patient. 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
--- OUTSIDE RECORDS SUMMARY | 2025-03-07 00:34 | XMS_ITS | Clinical Summary ---
Author Organization [facility] Address [address] [place] [address] Care Team Providers Care Process Engineering Manager Name Role Phone Rafael Hernández MD [...] Type Department Care Team Description 02/13/[address] [facility] Pulmonary [place] [address] [place] [address] Carmen Lerma MD 02/03/[address] [facility] Pulmonology [address] [place] [address] Carmen Lerma MD Med Refill 12/29/2024 10:06 AM CDT - 12/29/2024 11:59 PM CDT Hospital Encounter 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14 L 12/29/2024 10:58 AM CDT [facility] TLC PRE 6.06 L 12/29/2024 10:58 AM CDT [facility] VC PRE 3.10 L 12/29/2024 10:58 AM CDT [facility] IC PRE 2.44 L 12/29/2024 10:58 AM CDT [facility] FRC PL PRE 3.71 L 12/29/2024 10:58 AM CDT [facility] ERV PRE 0.75 L 12/29/2024 10:58 AM CDT [facility] RV PRE 2.96 L 12/29/2024 10:58 AM CDT [facility] RAW PRE 3.31 cmH2O*s/L 12/29/2024 10:58 AM CDT [facility] VTG 4.32 L 12/29/2024 10:58 AM CDT [facility] FVC PRE 2.99 L 12/29/2024 10:58 AM CDT [facility] FEV1 PRE 2.11 L 12/29/2024 10:58 AM CDT [facility] [id number] 70.67 % 12/29/2024 10:58 AM CDT [facility] DOX07-59% PRE 1.27 L/s 12/29/2024 10:58 AM T [facility] PEF PRE 7.71 L/s 12/29/2024 10:58 AM T [facility] Anatomical Region Laterality Modality PFT 12/29/2024 10:0 [...] Resul t from Last 3 Months Insurance [facility] Care Teams Process Engineering Manager Relationship Specialty Start Date End Date Rafael Hernández MD PCP - General Family Medicine 11/13/20
--- OUTSIDE RECORDS SUMMARY | 2025-03-07 00:34 | XMS_ITS | Data Portability ---
Author Organization [facility] OFFICE Address [address] [place] [address] Care Team Providers Care Mill Hand Name Role Phone LIZ BIGGS Primary Care Provider LIZ BIGGS Referring Provider [phone] LIZ BIGGS Primary Care Provider Assessment Encounter Date Assessment Date Assessment LastModified by Organization Details LastModified Time 09/25/2021 09/25/2021 Discussed with patient findings, diagnosis, and prognosis. Discussed evaluation and treatment options including risks and benefits with patient, and patient expressed understanding. The following interventions were recommended: heart healthy low-fat, low-sodium diet, begin regular exercise,maint ain appropriate weight, continue current medications, and medical follow-up as noted. [email or web address] Not available 09/25/2021 11:49:38 03/26/2022 03/26/2022 Discussed with patient findings, diagnosis, and prognosis. Discussed evaluation and treatment options including risks and benefits with patient, and patient expressed understanding. The following interventions were recommended: heart healthy low-fat, low-sodium diet, begin regular exercise,maint ain appropriate weight, continue current medications, and medical follow-up as noted. [email or web address] Not available 03/26/2022 11:52:14 06/11/2022 06/11/2022 Discussed with patient findings, diagnosis, and prognosis. Discussed evaluation and treatment options including risks and benefits with patient, and patient expressed understanding. The following interventions were recommended: heart healthy low-fat, low-sodium diet, begin regular exercise,maint ain appropriate weight, continue current medications, and medical follow-up as noted. Not available 06/11/2022 12:13:49 07/30/2022 07/30/2022 Discussed with patient findings, diagnosis, and prognosis. Discussed evaluation and treatment options including risks and benefits with patient, and patient expressed understanding. The following interventions were recommended: heart healthy low-fat, low-sodium diet, begin regular exercise,maint ain appropriate weight, continue current medications, and medical follow-up as noted. [email or web address] Not available 07/30/2022 14:27:52 10/29/2022 10/29/2022 Discussed with patient findings, diagnosis, and prognosis. Discussed evaluation and treatment options including risks and benefits with patient, and patient expressed understanding. The following interventions were recommended: heart healthy low-fat, low-sodium diet, begin regular exercise,maint ain appropriate weight, continue current medications, and medical follow-up as noted. [email or web address] Not available 10/29/2022 11:56:37 Plan of Treatment Reminders Order Date Submit Date Provider Last Modified By Organization Details Last Modified Time Details Appointments None recorded. Lab None recorded. Referral None recorded. Procedures None recorded. Surgeries None recorded. Imaging None recorded. Medication Orders aspirin 81 mg tablet,de layed release [facility]/Pharmacy #[id number], [address] [place], [address], 12:04:24 Patient TargetsNo targets recorded. Patient Instructions Encounter Date Encounter Id Patient Instructions Last Modified By Organization Details Last Modified Time 09/25/2021 [id number] chest pain: care instructions [email or web address] Not available 09/25/2021 12:04:19 sleep apnea: car e instructions [email or web address] Not available 09/25/2021 12:04:18 high blood pressure: care instructions Not available 09/25/2021 12:04:19 learning about high blood pressure [email or web address] Not available 09/25/2021 12:04:19 aortic valve regurgitation: care instructions [email or web address] Not available 09/25/2021 12:04:18 leg and ankle edema: care instructions [email or web address] Not available 09/25/2021 12:04:18 03/26/2022 [id number] chest pain: care instructions [email or web address] Not available 03/26/2022 12:02:49 sleep apnea: car e instructions [email or web address] Not available 03/26/2022 12:02:49 high blood pressure: care instructions [email or web address] Not available 03/26/2022 12:02:49 learning about high blood pressure [email or web address] Not available 03/26/2022 12:02:49 aortic valve regurgitation: care instructions [email or web address] Not available 03/26/2022 12:02:49 leg and ankle edema: care instructions [email or web address] Not available 03/26/2022 12:02:49 06/11/2022 [id number] chest pain: care instructions [email or web address] Not available 06/11/2022 12:38:13 sleep apnea: car e instructions [email or web address] Not available 06/11/2022 12:38:13 high blood pressure: care instructions [email or web address] Not available 06/11/2022 12:38:13 learning about high blood pressure [email or web address] Not available 06/11/2022 12:38:13 aortic valve regurgitation: care instructions [email or web address] Not available 06/11/2022 12:38:13 leg and ankle edema: care instructions [email or web address] Not available 06/11/2022 12:38:13 07/30/2022 [id number] chest pain: care instructions [email or web address] Not available 07/30/2022 14:50:27 sleep apnea: car e instructions [email or web address] Not available 07/30/2022 14:50:26 high blood pressure: care instructions [email or web address] Not available 07/30/2022 14:50:27 learning about high blood pressure Not available 07/30/2022 14:50:27 aortic valve regurgitation: care instructions [email or web address] Not available 07/30/2022 14:50:26 leg and ankle edema: care instructions [email or web address] Not available 07/30/2022 14:50:26 10/29/2022 [id number] chest pain: care instructions [email or web address] Not available 10/29/2022 12:05:45 sleep apnea: car e instructions [email or web address] Not available 10/29/2022 12:05:45 high blood pressure: care instructions [email or web address] Not available 10/29/2022 12:05:45 learning about high blood pressure [email or web address] Not available 10/29/2022 12:05:45 aortic valve regurgitation: care instructions Not available 10/29/2022 12:05:45 leg and ankle edema: care instructions [email or web address] Not available 10/29/2022 12:05:45 Reason for Referral None Reported. Results Created Date Observation Date Name Description Value Unit Range Abnormal Flag Note LastModifiedBy Organization Detail LastModifiedTime 03/27/20 22 03/26/2022 elect elena diogr am No observ ation record ed. [email or web address] Not Available 2021 13:59:42 04/19/20 22 04/16/2022 US, echoc ardio gram No observ ation record ed. [facility] [address], [place], [address], 04/20/2022 14:57:21 04/22/20 22 04/16/2022 US, echoc ardio gram No observ ation record ed. [email or web address] Not Available 2021 16:25:51 04/29/20 22 04/24/2022 CT, angio gram, chest + abdom en, w/ contr ast No observ ation record ed. [email or web address] Not Available 2021 12:07:13 Result Notes None recorded. Problems Name Problem SNOMED Code Status Onset Date Resolution Date Notes Provider Name and Address Organization Details Recorded Time Chest pain 76237017 Active 2018 Not Available [facility] 3 14:43:39 Mitral valve prolapse 295625426 Active 2018 Not Available [facility] 3 14:43:39 Essential hypertension 83883113 Active 2018 Not Available [facility] 3 14:43:39 Dyslipidemia 839552397 Active 2018 Not Available [facility] 3 14:43:39 Aneurysm of aortic root 956113548 Active 2018 Not Available [facility] 3 14:43:39 Obstructive sleep apnea syndrome 28971499 Active 2018 CPAP for Mild HOLLY Not Available [facility] 3 14:43:39 Edema 867039306 Active 2019 Not Available [facility] 3 14:43:39 Aortic valve regurgitation 41837533 Active 2019 Not Available [facility] 3 14:43:39 Dyspnea on exertion 44121584 Active 2020 Not Available [facility] 3 14:43:39 Coronary arteriosclero sis 35492620 Active 2021 Not Available [facility] 3 14:43:39 Problem Notes None recorded. Medical Equipment None Reported. Allergies No known drug allergies Medications Name Sig Start Date Stop Date Status Note LastModified by Organization Details LastModified Time cyclobenza scooby 10 mg tablet 11/15 completed Not Available Not Available Not Available amoxicilli n 500 mg capsule 11/15 completed Not Available Not Available Not Available atorvastat in 40 mg tablet TAKE 1 TABLET BY MOUTH EVERY DAY AT BEDTIME active Not Available Not Available No t Available prednisone 10 mg tablet TAKE 6 TABS BY MOUTH DAILY X3 DAYS, 4 TABS DAILY X3 DAYS, 2 TABS DAILY X3 DAYS, 1 TAB DAILY X4 DAYS 10/29 completed Not Available Not Available Not Available azithromyc in 250 mg tablet 05/28 completed Not Available Not Available Not Available valacyclov ir 1 gram tablet TAKE 1 TABLET BY MOUTH EVERY 8 HOURS FOR 7 DAYS active Not Available Not Available No t Available meloxicam 15 mg tablet Take 1 tablet every day by oral route as directed for 90 days. 10/03 completed prn Not Available Not Available Not Available metoprolol succinate ER 200 mg tablet,ext ended release 24 hr TAKE 1 TABLET BY MOUTH EVERY DAY 2022 active Not Available Not Available Not Avai lable metoprolol succinate ER 100 mg tablet,ext ended release 24 hr TAKE 1 TABLET BY MOUTH EVERY DAY 11/08 completed Not Available Not Available Not Available hydralazin e 25 mg tablet TAKE 1 TABLET BY MOUTH THREE TIMES A DAY 2022 active Not Available Not Available Not Avai lable aspirin 81 mg tablet,del ayed release TAKE 1 TABLET BY MOUTH EVERY DAY 2022 active Not Available Not Available Not Avai lable tramadol 50 mg tablet 11/15 completed Not Available Not Available Not Available dicyclomin e 20 mg tablet 11/15 completed Not Available Not Available Not Available amlodipine 5 mg-benazep ril 20 mg capsule Take 1 capsule every day by oral route as directed for 90 days. 12/20 completed Not Available Not Available Not Available Gentle Laxative (bisacodyl ) 5 mg tablet,del ayed release 10 MG ORALLY ONCE FOR 1 DAY active Not Available Not Available No t Available mometasone 50 mcg/actuat ion nasal spray [place] 2 sprays every day by nasal route as directed for 90 days. 09/25 completed as needed 01/03/20 21 FH Not Available Not Available Not Available diclofenac sodium 75 mg tablet,del ayed release 06/11 completed Not Available Not Available Not Available methylpred nisolone 4 mg tablets in a dose pack 11/15 completed Not Available Not Available Not Available albuterol sulfate HFA 90 mcg/actuat ion aerosol inhaler as needed 03/29/20 21 FH active Not Available Not Available No t Available amoxicilli n 875 mg-potassi um clavulanat e 125 mg tablet TAKE 1 TABLET BY MOUTH EVERY 12 HOURS FOR 10 DAYS 10/29 completed Not Available Not Available Not Available Pneumovax- 23 25 mcg/0.5 mL injection syringe PHARMACY ADMINIST ERED 08/30 completed Not Available Not Available Not Available amlodipine 10 mg-benazep ril 20 mg capsule TAKE 1 CAPSULE BY MOUTH EVERY DAY 2022 active Not Available Not Available Not Avai lable metaxalone 800 mg tablet 05/28 completed pt. no longer takes 05/11/19 FH Not Available Not Available Not Available ciprofloxa adalberto 0.3 %-dexameth asone 0.1 % ear drops,susp ension INSTILL 4 (FOUR) DROPS INTO BOTH EARS 2 TIMES DAILY 03/26 completed Not Available Not Available Not Available metoprolol tartrate 25 mg tablet TAKE 1 TABLET BY MOUTH EVERY 12 HOURS 12/20 completed Not Available Not Available Not Available Asmanex Twisthaler 220 mcg/actuat ion(30 doses) breath activated inhalr Inhale 1 inhalati on every day by inhalati on route as needed for 90 days. 09/25 completed pt. no longer takes 021 FH Not Available Not Available Not Available chlorhexid ine gluconate 0.12 % mouthwash 11/15 completed Not Available Not Available Not Available Pulmicort Flexhaler 90 mcg/actuat ion breath activated prn 10/03 completed Not Available Not Available Not Available hydrochlor othiazide 12.5 mg tablet TAKE 1 TABLET BY MOUTH EVERY DAY 10/29 completed Not Available Not Available Not Available Symbicort 160 mcg-4.5 mcg/actuat ion HFA aerosol inhaler INHALATI ON 2 PUFFS TWICE A DAY 09/25 completed pt. no longer takes 021 FH Not Available Not Available Not Available Multi Vitamin active Not Available Not Available Not Available Sunosi 75 mg tablet TAKE 1 TABLET BY MOUTH EVERY DAY active Not Available Not Available No t Available Sunosi 150 mg tablet TAKE 1 TABLET BY MOUTH EVERY DAY active Not Available Not Available No t Available ID NOW COVID-19 Test Kit TEST DIRECTED TODAY 03/26 completed Not Available Not Available Not Available Breztri Aerosphere 160 mcg-9mcg-4 .8mcg/actu ation HFA aerosol inhaler INHALE 2 INHALATI ON 2 (TWO) TIMES A DAY active Not Available Not Available No t Available Vitals Date Recorded Body height Body mass index (BMI) Body weight Heart rate Respiratory rate Oxygen saturation Oxygen saturation in Arterial blood by Pulse oximetry Systolic And Diastolic Provider Name and Address Organization Details Last Updated DateTime 3 171.45 cm 26.1 kg/m2 03399.1 1 g 76 /min 16 /min 98 % 98 % 120/76 mm[Hg] Heri Feng [facility] 3 11:44:32 Date Recorded Body height Body mass index (BMI) Body weight Heart rate Respiratory rate Oxygen saturation Oxygen saturation in Arterial blood by Pulse oximetry Systolic And Diastolic Provider Name and Address Organization Details Last Updated DateTime 3 171.45 cm 25.9 kg/m2 57067.5 2 g 72 /min 16 /min 96 % 96 % 122/62 mm[Hg] Heri [facility] 3 14:14:06 Date Recorded Body height Body mass index (BMI) Body weight Heart rate Oxygen saturation Oxygen saturation in Arterial blood by Pulse oximetry Systolic And Diastolic Provider Name and Address Organization Details Last Updated DateTime 2 171.45 cm 27.2 kg/m2 90861.2 6 g 70.98 /min 97 % 97 % 118/60 mm[Hg] Heri Feng [facility] 2 11:16:19 Date Recorded Body height Body mass index (BMI) Body weight Heart rate Respiratory rate Oxygen saturation Oxygen saturation in Arterial blood by Pulse oximetry Systolic And Diastolic Provider Name and Address Organization Details Last Updated DateTime 3 171.45 cm 25 kg/m2 27350.9 6 g 63 /min 16 /min 94 % 94 % 116/82 mm[Hg] Heri Jung [facility] 3 11:10:13 Date Recorded Body height Body mass index (BMI) Body weight Heart rate Respiratory rate Oxygen saturation Oxygen saturation in Arterial blood by Pulse oximetry Systolic And Diastolic Provider Name and Address Organization Details Last Updated DateTime 2 171.45 cm 27.3 kg/m2 57701.8 5 g 72 /min 16 /min 94 % 94 % 118/68 mm[Hg] Heri Feng [facility] 2 11:27:07 Social History Question Answer Notes LastModified by Zerveat ion Details LastModified Time Tobacco Smoking Status Never Smoker Not Available [facility] 04/10/2020 03:30:41 What Is Your Level Of Caffeine Consumption? Heavy [id number] Information not available 04/10/2020 How Much Tobacco Do You Chew? None [id number] Information not available 04/10/2020 What Type Of Diet Are You Following? REGULAR [id number] Information not available 04/10/2020 Which Illicit Or Recreational Drugs Have You Used? No [id number] Information not available 04/10/2020 Live Alone Or With Others? Alone Information not available 11/15/2018 Marital Status Informatio n not available 11/15/2018 What Was The Date Of Your Most Recent Tobacco Screening? 11/15/2018 [id number] Information not available 04/10/2020 How Many Children Do You Have? 0 [id number] Information not available 04/10/2020 How Much Tobacco Do You Smoke? No [id number] Information not available 04/10/2020 How Many Years Have You Smoked Tobacco? 0 [id number] Information not available 04/10/2020 Sex: Unknown Functional Status Question Answer Note LastModified by Organizat ion Details LastModified Time What is your level of alcohol consumption? Occasional [id number] Information not available 04/10/2020 Do you or have you ever used smokeless tobacco? 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 Never used electronic cigarettes [id number] Information not available 04/10/2020 What is your exercise level? None [id number] Information not available 04/10/2020 Mental Status None recorded. Family History Relationship Description Onset Age of this Age Resolved Age Notes LastModified by Organization Details LastModified Time Mother Heart disease [email or web address] Not available 2018 13:12:04 Father Hypertensive disorder [email or web address] Not available 2018 13:12:12 Medical History Condition Response Valvular Heart Disease Y Hyperlipidemia Y Hypertension Y Sleep Apnea Y Gynecological HistoryNo gynecological history recorded. Obstetrics History GPAL:G 0 P 0 0 0 0 Immunizations Vaccine Type Date Status Note Provider Nam e and Address Organization Details Recorded Time pneumococcal polysaccharide PPV23 0 completed Heri garcia [facility] 06/11/2022 11:44:49 COVID-19, mRNA, LNP-S, bivalent, PF, 30 mcg/0.3 mL dose 2 completed [facility]i garcia [facility] 06/11/2022 11:44:49 Influenza, high-dose, quadrivalent, PF 0 completed Heri garcia [facility] 06/11/2022 11:44:49 Past Encounters Encounter ID Performer Location Encounter Start Date Encounter Closed Date Diagnosis/Indication Diagnosis SNOMED-CT Code Diagnosis ICD10 Code Diagnosis IMO Codes Diagnosis Note [id number] Jose Arthur MD [place] OFFICE [facility] [place] [address] 11/15/2018 12:12:05 11/15/2018 14:25:46 Aneurysm of aortic root 793550738 I71.2 Mild-moder ate aortic root dilatation . Had [facility] 11/12/18: normal coronaries , normal LV systolic function, dilated aortic root (4.5 cm) with thoracic aneurysm but no AV regurgitat ion. Had 11/11/18 CTA chest PE protocol: no PE, ectasia of ascending aorta measuring 4.[address] follow-up. Optimize BP and increase metoprolol . Avoid heavy weight lifting. Dyslipidemia 054010428 E 78.5 Needs to keep LDL less than 70, and HDL more than 40. Had 11/11/18: LDL 106. Began atorvastat in 40 mg qHS 11/15/18. FLP 1 mo. Essential hypertension 33782646 I10 Patient's blood pressure is not well-contr olled on present medical therapy. Patient is tolerating , without difficulty , the current medication s. I have made the following changes to the current regimen. Patient is advised to maintain a blood pressure diary. Patient was advised to eat a low-sodium diet (2 grams sodium or less daily). Increased to metoprolol succinate 100 mg qd 11/15/18. Obstructiv e sleep apnea syndrome 77801151 G47.33 Reports fatigue. Had sleep study 10 years ago and was treated with CPAP when on prednisone . Off CPAP for several years. Obtain home sleep study. [id number] Jose Arthur MD [place] OFFICE [address] [place] [address] 12/20/2018 14:37:32 12/20/2018 22:24:16 Aneurysm of aortic root 953076226 I71.2 Mild-moder ate aortic root dilatation . Had [facility] 11/12/18: normal coronaries , normal LV systolic function, dilated aortic root (4.5 cm) with thoracic aneurysm but no AV regurgitat ion. Had 11/11/18 CTA chest PE protocol: no PE, ectasia of ascending aorta measuring 4.[address] follow-up. Optimize BP and increase metoprolol . Avoid heavy weight lifting. Essential hypertension 63626206 I10 Patient's blood pressure is not well-contr olled on present medical therapy. Patient is tolerating , without difficulty , the current medication s. I have made the following changes to the current regimen. Patient is advised to maintain a blood pressure diary. Patient was advised to eat a low-sodium diet (2 grams sodium or less daily). Increased to metoprolol succinate 100 mg qd 11/15/18. Increased Amlodipine 5mg/Benaze pril 20mg to 10mg/20mg daily. (12/20/2018 ) Dyslipidemia 185301623 E 78.5 Needs to keep LDL less than 70, and HDL more than 40. Had 11/11/18: LDL 106. Began atorvastat in 40 mg qHS 11/15/18. Had 12-15-2018 Cholestero l 146,Trigly cerides 60,HDL 71,LDL 61 Continue Atorvastat in. Obstructiv e sleep apnea syndrome 09429849 G47.33 Reports fatigue. Had sleep study 10 years ago and was treated with CPAP when on prednisone . Off CPAP for several years. Sleep study done. Will be fitted for CPAP next week. [id number] Jose Arthur MD [place] OFFICE [address] [place] [address] 05/11/2019 12:20:49 05/11/2019 13:57:06 Aneurysm of aortic root 087389932 I71.2 Mild-moder ate aortic root dilatation . Had [facility] 11/12/18: normal coronaries , normal LV systolic function, dilated aortic root (4.5 cm) with thoracic aneurysm but no AV regurgitat ion. Had 11/11/18 CTA chest PE protocol: no PE, ectasia of ascending aorta measuring 4.3 cm. Needs yearly chest CTA, next 11/2019. Optimize BP and had increased metoprolol previously . Avoid heavy weight lifting. Essential hypertension 11607823 I10 Patient's blood pressure is well-contr olled on present medical therapy. Patient is tolerating , without difficulty , the current medication s. I have not made changes to the current regimen. Patient is advised to maintain a blood pressure diary. Patient was advised to eat a low-sodium diet (2 grams sodium or less daily). Increased to metoprolol succinate 100 mg qd 11/15/18. Increased Amlodipine 5mg/Benaze pril 20mg to 10mg/20mg daily. (12/20/2018 ) Dyslipidemia 655744970 E 78.5 Needs to keep LDL less than 70, and HDL more than 40. Had 11/11/18: LDL 106. Began atorvastat in 40 mg qHS 11/15/18. Had 12-15-2018 Cholestero l 146,Trigly cerides 60,HDL 71,LDL 61 Continue atorvastat in. Obtain FLP, CMP, Mg. Obstructiv e sleep apnea syndrome 73621116 G47.33 Reports fatigue. Had sleep study 10 years ago and was treated with CPAP when on prednisone . Off CPAP for several years. Had 12/02/18 Sleep Study: Findings are consistent with mild, non-positi onal obstructiv e sleep apnea (HOLLY). Has been on CPAP since 12/2018. Tolerating . Some persistent fatigue. [id number] Jose Arthur MD [place] OFFICE [address] [place] [address] 11/09/2019 11:00:46 11/09/2019 12:14:24 Aneurysm of aortic root 657484111 I71.2 Mild-moder ate aortic root dilatation . Had [facility] 11/12/18: normal coronaries , normal LV systolic function, dilated aortic root (4.5 cm) with thoracic aneurysm but no AV regurgitat ion. Had 11/11/18 CTA chest PE protocol: no PE, ectasia of ascending aorta measuring 4.3 cm. Needs yearly chest CTA, next 11/2019. Ordered at [facility]. Optimize BP and increased metoprolol . Avoid heavy weight lifting. Essential hypertension 98115206 I10 Patient's blood pressure is somewhat well-contr olled on present medical therapy. Patient is tolerating , without difficulty , the current medication s. I have made the following changes to the current regimen. Patient is advised to maintain a blood pressure diary. Patient was advised to eat a low-sodium diet (2 grams sodium or less daily). Increased to metoprolol succinate 100 mg qd 11/15/18. Increased amlodipine 5mg/Benaze pril 20mg to 10mg/20mg daily. (12/20/2018 ) Increased to metoprolol succinate 200 mg qd 11/09/19. Dyslipidemia 525743379 E 78.5 Needs to keep LDL less than 70, and HDL more than 40. Had 11/11/18: LDL 106. Began atorvastat in 40 mg qHS 11/15/18. Had 12-15-2018 Cholestero l 146,Trigly cerides 60,HDL 71,LDL 61 Had 11/05/19: LDL 66. Continue atorvastat in. Obstructiv e sleep apnea syndrome 98926051 G47.33 Reports fatigue. Had sleep study 10 years ago and was treated with CPAP when on prednisone . Off CPAP for several years. Had 12/02/18 Sleep Study: Findings are consistent with mild, non-positi onal obstructiv e sleep apnea (HOLLY). Has been on CPAP since 12/2018. Tolerating . Some persistent fatigue. [id number] Jose Arthur MD [id number] [place] [address] 01/11/2020 16:14:44 01/11/2020 18:39:05 Aneurysm of aortic root 892116551 I71.2 Mild-moder ate aortic root dilatation . Stable. For chest pain, she went to [facility] ED and had repeat CTA chest 12/06/19 with stable findings per patient report, obtain report. Had CHEST CT 11/22/19: stable fusiform aneurysm of the ascending aorta without dessection . [facility] [facility] 11/12/18: normal coronaries , normal LV systolic function, dilated aortic root (4.5 cm) with thoracic aneurysm but no AV regurgitat ion. Had 11/11/18 CTA chest PE protocol: no PE, ectasia of ascending aorta measuring 4.3 cm. Had CHEST CTA 11/22/19: stable fusiform aneurysm (4.3 x 4.0 cm) of the ascending aorta without dissection . Needs yearly chest CTA, next 12/2020, at [facility]. Optimized BP and increased metoprolol . Avoid heavy weight lifting. Recommend stopping meloxicam prn. Essential hypertension [id number] I10 Patient's blood pressure is well-contr olled on present medical therapy. Patient is tolerating , without difficulty , the current medication s. I have not made changes to the current regimen. Patient is advised to maintain a blood pressure diary. Patient was advised to eat a low-sodium diet (2 grams sodium or less daily). Increased to metoprolol succinate 100 mg qd 11/15/18. Increased amlodipine 5mg/Benaze pril 20mg to 10mg/20mg daily. (12/20/2018 ) Increased to metoprolol succinate 200 mg qd 11/09/19. Dyslipidemia [id number] E 78.5 Needs to keep LDL less than 70, and HDL more than 40. Had 11/11/18: LDL 106. Began atorvastat in 40 mg qHS 11/15/18. Had 12-15-2018 Cholestero l 146,Trigly cerides 60,HDL 71,LDL 61 Had 11/05/19: LDL 66. Continue atorvastat in. Obstructiv e sleep apnea syndrome [id number] G47.33 Reports fatigue. Had sleep study 10 years ago and was treated with CPAP when on prednisone . Off CPAP for several years. Had 12/02/18 Sleep Study: Findings are consistent with mild, non-positi onal obstructiv e sleep apnea (HOLLY). Has been on CPAP since 12/2018. Tolerating . Some persistent fatigue, so obtain CBC, CMP, Mg, TSH. Increased walking. [id number] Jose Arthur MD [place] [facility] [address] [place] [address] 03/21/2020 14:47:43 03/21/2020 16:42:22 Aneurysm of aortic root [id number] I71.2 Mild-moder ate aortic root dilatation . Stable. For chest pain, she went to [facility] ED and had repeat CTA chest 12/06/19 with stable findings per patient report, obtain report. 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 Had [facility] 11/12/18: normal coronaries , normal LV systolic function, dilated aortic root (4.5 cm) with thoracic aneurysm but no AV regurgitat ion. Had 11/11/18 CTA chest PE protocol: no PE, ectasia of ascending aorta measuring 4.3 cm. Needs yearly chest CTA, next 12/2020, at [facility]. Optimized BP and increased metoprolol . Avoid heavy weight lifting. Recommend stopping meloxicam prn. Essential hypertension [id number] I10 Patient's blood pressure is well-contr olled on present medical therapy. Patient is tolerating , without difficulty , the current medication s. I have not made changes to the current regimen. Patient is advised to maintain a blood pressure diary. Patient was advised to eat a low-sodium diet (2 grams sodium or less daily). Increased to metoprolol succinate 100 mg qd 11/15/18. Increased amlodipine 5mg/Benaze pril 20mg to 10mg/20mg daily. (12/20/2018 ) Increased to metoprolol succinate 200 mg qd 6/3/20. Dyslipidemia [id number] E 78.5 Needs to keep LDL less than 70, and HDL more than 40. Had 11/11/18: LDL 106. Began atorvastat in 40 mg qHS 11/15/18. Had 12-15-2018 Cholestero l 146,Trigly cerides 60,HDL 71,LDL 61 Had 11/05/19: LDL 66. Continue atorvastat in. Obstructiv e sleep apnea syndrome [id number] G47.33 Reports fatigue. Had sleep study 10 years ago and was treated with CPAP when on prednisone . Off CPAP for several years. Had 12/02/18 Sleep Study: Findings are consistent with mild, non-positi onal obstructiv e sleep apnea (HOLLY). Has been on CPAP since 12/2018. Tolerating . Some persistent fatigue, so obtain CBC, CMP, Mg, TSH. Increased walking. Edema [id number] R60.9 Has bilateral leg edema for several months. Obtain echo to evaluate for structural /functiona l disease. Check venous Doppler bilateral legs. Began HCTZ 12.5 mg qd 03/21/20. Obtain BMP, Mg in 3 weeks. Obtain TSH results from 03/2020 draw. 23959 Jose Arthur MD [address] [address] 06/06/2020 14:06:10 06/07/2020 08:36:31 Aneurysm of aortic root [id number] I71.2 Mild-moder ate aortic root dilatation with mild-moder ate AI. Stable. Had ECHO 04/23/20: LV chamber size is normal, LV wall thickness is normal, there is normal global systolic function and contractil ity, the estimated LVEF is 60-65%(nor mal), there is increased left atrial pressure and grade II diastolic dysfunctio n, left atrium chamber is mildly dilated, right atrium chamber is mildly dilated,th ere is mild aortic valve sclerosis without significan t stenosis,t here is moderate aortic regurgitat ion,the mitral valve leaflet is milldy thickened, there is mild mitral regurgitat oion,there is mild to moderate tricuspid regurgitat ion,mild elevation of estimated RV systolic pressure,e stimated RVSP systolic pressure is 36 mmHg. For chest pain, she went to [facility] ED and had repeat CTA chest 12/06/19 with stable findings per patient report, obtain report. 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 Had [facility] 11/12/18: normal coronaries , normal LV systolic function, dilated aortic root (4.5 cm) with thoracic aneurysm but no AV regurgitat ion. Had 11/11/18 CTA chest PE protocol: no PE, ectasia of ascending aorta measuring 4.3 cm. Needs yearly chest CTA, next 12/2020, at [facility]. Optimized BP and increased metoprolol . Avoid heavy weight lifting. Recommend stopping meloxicam prn. Repeat echo 10/2019 to reassess extent of AI. Essential hypertension [id number] I10 Patient's blood pressure is well-contr olled on present medical therapy. Patient is tolerating , without difficulty , the current medication s. I have not made changes to the current regimen. Patient is advised to maintain a blood pressure diary. Patient was advised to eat a low-sodium diet (2 grams sodium or less daily). Increased to metoprolol succinate 100 mg qd 11/15/18. Increased amlodipine 5mg/Benaze pril 20mg to 10mg/20mg daily. (12/20/2018 ) Increased to metoprolol succinate 200 mg qd 11/09/19. Dyslipidemia 517994942 E 78.5 Needs to keep LDL less than 70, and HDL more than 40. Had 11/11/18: LDL 106. Began atorvastat in 40 mg qHS 11/15/18. Had 12-15-2018 Cholestero l 146,Trigly cerides 60,HDL 71,LDL 61 Had 11/05/19: LDL 66. Continue atorvastat in. Obstructiv e sleep apnea syndrome [id number] G47.33 Reports fatigue. Had sleep study 10 years ago and was treated with CPAP when on prednisone . Off CPAP for several years. Had 12/02/18 Sleep Study: Findings are consistent with mild, non-positi onal obstructiv e sleep apnea (HOLLY). Has been on CPAP since 12/2018. Tolerating . Edema [id number] R60.9 Has bilateral leg edema for several months, resolved. Checked venous Doppler bilateral legs 05/22/20 CLARE: Negative bilateral venous study. Began HCTZ 12.5 mg qd 03/21/20. Had 04/16/20 BMP: NA 142, K 4.2, CL 103, CO2 32, GLU 74, BUN 16, CR 0.80, normal Mg. Aortic ratna ve regurgitation [id number] I35.1 Mild-moder ate. Had ECHO 04/23/20: LV chamber size is normal, LV wall thickness is normal, there is normal global systolic function and contractil ity, the estimated LVEF is 60-65%(nor mal), there is increased left atrial pressure and grade II diastolic dysfunctio n, left atrium chamber is mildly dilated, right atrium chamber is mildly dilated,th ere is mild aortic valve sclerosis without significan t stenosis,t here is moderate aortic regurgitat ion,the mitral valve leaflet is milldy thickened, there is mild mitral regurgitat oion,there is mild to moderate tricuspid regurgitat ion,mild elevation of estimated RV systolic pressure,e stimated RVSP systolic pressure is 36 mmHg. Repeat echo 10/2019 to reassess extent of AI. Chest pain [id number] R07. 2 Worse with twisting of chest. Needs rheum. f/u. 67441 Jose Arthur MD [place] [facility] [address] [place] [address] 10/03/2020 12:02:48 10/03/2020 14:13:03 Aortic valve regurgitation [id number] I35.1 Moderate. Had ECHO 04/23/20: LV chamber size is normal, LV wall thickness is normal, there is normal global systolic function and contractil ity, the estimated LVEF is 60-65%(nor mal), there is increased left atrial pressure and grade II diastolic dysfunctio n, left atrium chamber is mildly dilated, right atrium chamber is mildly dilated,th ere is mild aortic valve sclerosis without significan t stenosis,t here is moderate aortic regurgitat ion,the mitral valve leaflet is milldy thickened, there is mild mitral regurgitat ion,there is mild to moderate tricuspid regurgitat ion,mild elevation of estimated RV systolic pressure,e stimated RVSP systolic pressure is 36 mmHg. Repeat echo 10/21/2020 to reassess extent of AI. May need eventual JOHN to exclude bicuspid AV with ascending aortic aneurysm, although AV reported as trileaflet on prior echo. Aneurysm o f aortic root [id number] I71.2 Mild-moder ate aortic root dilatation with mild-moder ate AI. Stable. Had ECHO 04/23/20: LV chamber size is normal, LV wall thickness is normal, there is normal global systolic function and contractil ity, the estimated LVEF is 60-65%(nor mal), there is increased left atrial pressure and grade II diastolic dysfunctio n, left atrium chamber is mildly dilated, right atrium chamber is mildly dilated,th ere is mild aortic valve sclerosis without significan t stenosis,t here is moderate aortic regurgitat ion,the mitral valve leaflet is milldy thickened, there is mild mitral regurgitat oion,there is mild to moderate tricuspid regurgitat ion,mild elevation of estimated RV systolic pressure,e stimated RVSP systolic pressure is 36 mmHg. For chest pain, she went to [facility] ED and had repeat CTA chest 12/06/19 with stable findings per patient report, obtain report. 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 Had [facility] 11/12/18: normal coronaries , normal LV systolic function, dilated aortic root (4.5 cm) with thoracic aneurysm but no AV regurgitat ion. Had 11/11/18 CTA chest PE protocol: no PE, ectasia of ascending aorta measuring 4.3 cm. Needs yearly chest CTA, next 12/2020, at [facility]. Optimized BP and increased metoprolol . Avoid heavy weight lifting. Recommend stopping meloxicam prn. Repeat echo 10/21/2020 to reassess extent of AI. Obtain repeat CTA chest for ascending aortic aneurysm mid-November 2020 at [facility]. Essential hypertension [id number] I10 Patient's blood pressure is well-contr olled on present medical therapy. Patient is tolerating , without difficulty , the current medication s. I have not made changes to the current regimen. Patient is advised to maintain a blood pressure diary. Patient was advised to eat a low-sodium diet (2 grams sodium or less daily). Increased to metoprolol succinate 100 mg qd 11/15/18. Increased amlodipine 5mg/Benaze pril 20mg to 10mg/20mg daily. (12/20/2018 ) Increased to metoprolol succinate 200 mg qd 11/09/19. Dyslipidemia [id number] E 78.5 Needs to keep LDL less than 70, and HDL more than 40. Had 11/11/18: LDL 106. Began atorvastat in 40 mg qHS 11/15/18. Had 12-15-2018 Cholestero l 146,Trigly cerides 60,HDL 71,LDL 61 Had 11/05/19: LDL 66. Had 08/20/20:T C 145,TG 77,HDL 65, LDL 64. Continue atorvastat in. Obstructiv e sleep apnea syndrome 80653032 G47.33 Reports increased fatigue, worse in last 6 months, although fatigue present for 2 years. Had sleep study 10 years ago and was treated with CPAP when on prednisone . Off CPAP for several years. Had 12/02/18 Sleep Study: Findings are consistent with mild, non-positi onal obstructiv e sleep apnea (HOLLY). Has been on CPAP since 12/2018. Tolerating . Given increased fatigue, worse in last 6 months, obtain [facility] sleep center referral for considerat ion of CPAP titration. Previously , she was on 5-10 cmH20 AutoPap. Edema [id number] R60.9 Has bilateral leg edema for several months, resolved. Checked venous Doppler bilateral legs 05/22/20 CLARE: Negative bilateral venous study. Began HCTZ 12.5 mg qd 03/21/20. Had 04/16/20 BMP: NA 142, K 4.2, CL 103, CO2 32, GLU 74, BUN 16, CR 0.80, normal Mg. Chest pain [id number] R07. 2 Worse with twisting of chest. Needs rheum. f/u. Dyspnea on exertion 6084 5006 R06.09 Has increased exertional dyspnea which can be an anginal equivalent . Also had atypical chest pain, currently resolved. Given the history, exam findings and high cardiac risk factors, I feel additional investigat ion is warranted. I have made arrangemen ts in the near future for a pharmacolo gi Lexiscan stress nuclear test due to reduced functional capacity or conduction abnormalit y. The procedure was discussed with the patient, and risks, benefits, and alternativ e options were explained. Appropriat e labwork has been performed recently, therefore I have not made arrangemen ts for further testing. I have asked the patient to curtail exercise and activities until our investigat ion is complete. I have made the following adjustment s to the present medical regimen. Had 11/04/18 STRESS ECHO: Stress echocardio gram negative for inducible ischemia at 100% MPHR. No exercise induced chest pain. Average functional capacity. Had [facility] 11/12/18: normal coronaries , normal LV systolic function, dilated aortic root (4.5 cm) with thoracic aneurysm but no AV regurgitat ion. 30314 Jose Arthur MD [facility] [address] [place] [address] 11/21/2020 11:48:58 11/22/2020 10:29:41 Aortic valve regurgitation [id number] I35.1 Mild-moder ate. Repeated echo 10/21/2020 to reassess extent of AI: normal LV size, LVEF 65-70%, RVSP 37 mmHG. (prelim.) Had ECHO 04/23/20: LV chamber size is normal, LV wall thickness is normal, there is normal global systolic function and contractil ity, the estimated LVEF is 60-65%(nor mal), there is increased left atrial pressure and grade II diastolic dysfunctio n, left atrium chamber is mildly dilated, right atrium chamber is mildly dilated,th ere is mild aortic valve sclerosis without significan t stenosis,t here is moderate aortic regurgitat ion,the mitral valve leaflet is milldy thickened, there is mild mitral regurgitat ion,there is mild to moderate tricuspid regurgitat ion,mild elevation of estimated RV systolic pressure,e stimated RVSP systolic pressure is 36 mmHg. May need eventual JOHN to exclude bicuspid AV with ascending aortic aneurysm, although AV reported as trileaflet on transthora cic echo. Aneurysm o f aortic root [id number] I71.2 Mild-moder ate aortic root dilatation with mild-moder ate AI. Stable. Had ECHO 04/23/20: LV chamber size is normal, LV wall thickness is normal, there is normal global systolic function and contractil ity, the estimated LVEF is 60-65%(nor mal), there is increased left atrial pressure and grade II diastolic dysfunctio n, left atrium chamber is mildly dilated, right atrium chamber is mildly dilated,th ere is mild aortic valve sclerosis without significan t stenosis,t here is moderate aortic regurgitat ion,the mitral valve leaflet is milldy thickened, there is mild mitral regurgitat oion,there is mild to moderate tricuspid regurgitat ion,mild elevation of estimated RV systolic pressure,e stimated RVSP systolic pressure is 36 mmHg. For chest pain, she went to [facility] ED and had repeat CTA chest 12/06/19 with stable findings per patient report, obtain report. 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 Had [facility] 11/12/18: normal coronaries , normal LV systolic function, dilated aortic root (4.5 cm) with thoracic aneurysm but no AV regurgitat ion. Had 11/11/18 CTA chest PE protocol: no PE, ectasia of ascending aorta measuring 4.3 cm. Needs yearly chest CTA, next 12/2020, at [facility]. Optimized BP and increased metoprolol . Avoid heavy weight lifting. Recommend stopping meloxicam prn. Repeat echo 10/21/2020 to reassess extent of AI. Obtain repeat CTA chest for ascending aortic aneurysm mid-November 2020 at [facility]. Essential hypertension [id number] I10 Patient's blood pressure is somewhat well-contr olled on present medical therapy. Patient is tolerating , without difficulty , the current medication s. I have not made changes to the current regimen. Patient is advised to maintain a blood pressure diary. Patient was advised to eat a low-sodium diet (2 grams sodium or less daily). Increased to metoprolol succinate 100 mg qd 11/15/18. Increased amlodipine 5mg/Benaze pril 20mg to 10mg/20mg daily. (12/20/2018 ) Increased to metoprolol succinate 200 mg qd 11/09/19. Dyslipidemia [id number] E 78.5 Needs to keep LDL less than 70, and HDL more than 40. Had 11/11/18: LDL 106. Began atorvastat in 40 mg qHS 11/15/18. Had 12-15-2018 Cholestero l 146,Trigly cerides 60,HDL 71,LDL 61 Had 11/05/19: LDL 66. Had 08/20/20:T C 145,TG 77,HDL 65, LDL 64. Continue atorvastat in. Obstructiv e sleep apnea syndrome [id number] G47.33 Reports increased fatigue, worse in last 6 months, although fatigue present for 2 years. Had sleep study 10 years ago and was treated with CPAP when on prednisone . Off CPAP for several years. Had 12/02/18 Sleep Study: Findings are consistent with mild, non-positi onal obstructiv e sleep apnea (HOLLY). Has been on CPAP since 12/2018. Tolerating . Given increased fatigue, worse in last 6 months, obtained [facility] sleep center referral for considerat ion of CPAP titration. Previously , she was on 5-10 cmH20 [email or web address].Jordan s f/u with Dr. Lerma 12/2020, pulmonary, with plans for PFTs and download of CPAP data. Edema [id number] R60.9 Has bilateral leg edema for several months, resolved. Checked venous Doppler bilateral legs 05/22/20 CLARE: Negative bilateral venous study. Began HCTZ 12.5 mg qd 03/21/20. Had 04/16/20 BMP: NA 142, K 4.2, CL 103, CO2 32, GLU 74, BUN 16, CR 0.80, normal Mg. Chest pain [id number] R07. 2 Worse with twisting of chest. Needs rheum. f/u. Dyspnea on exertion 6084 5006 R06.09 Stable. Had 11/08/20 LEXISCAN: Adequate Stress with lexiscan. Negative lexiscan stress test for ischemia. Normal LV systolic function Artifact noted. No previous study to compare. LVEF >60% Had 11/04/18 STRESS ECHO: Stress echocardio gram negative for inducible ischemia at 100% MPHR. No exercise induced chest pain. Average functional capacity. Had [facility] 11/12/18: normal coronaries , normal LV systolic function, dilated aortic root (4.5 cm) with thoracic aneurysm but no AV regurgitat ion. Has f/u with Dr. Lerma 12/2020, pulmonary, with plans for PFTs and download of CPAP data. Has GERD symptoms with central chest burning sometimes associated with dyspnea; recommend PCP/GI f/u. 58603 Jose Arthur MD [place] [facility] [address] [place] [address] 01/02/2021 11:39:49 01/02/2021 13:15:04 Aortic valve regurgitation [id number] I35.1 Mild. Had Echo 11/16/2020 : LV chamber size is normal. LV wall thickness is normal. The estimated left ventricle ejection fraction is 65-70% (normal). There is mild aortic regurgitat ion. The mitral valve leaflet is mildly thickened. There is mild tricuspid regurgitat ion. Mild elevation of estimated RV systolic pressure, 45 mmHg. Irregular. Had ECHO 04/23/20: LV chamber size is normal, LV wall thickness is normal, there is normal global systolic function and contractil ity, the estimated LVEF is 60-65%(nor mal), there is increased left atrial pressure and grade II diastolic dysfunctio n, left atrium chamber is mildly dilated, right atrium chamber is mildly dilated,th ere is mild aortic valve sclerosis without significan t stenosis,t here is moderate aortic regurgitat ion,the mitral valve leaflet is milldy thickened, there is mild mitral regurgitat ion,there is mild to moderate tricuspid regurgitat ion,mild elevation of estimated RV systolic pressure,e stimated RVSP systolic pressure is 36 mmHg. May need eventual JOHN to exclude bicuspid AV with ascending aortic aneurysm, although AV reported as trileaflet on transthora cic echo. Aneurysm o f aortic root [id number] I71.2 Mild-moder ate aortic root dilatation with mild-moder ate AI. Stable. Had CTA chest 11/27/20: Ectasia of ascending aorta measuring 4.3 cm, stable from 09/03/[address] 11/22/19: stable (4.3 x 4.0 cm) fusiform aneurysm of the ascending aorta without dissection . Had [facility] 11/12/18: normal coronaries , normal LV systolic function, dilated aortic root (4.5 cm) with thoracic aneurysm but no AV regurgitat ion. Had 11/11/18 CTA chest PE protocol: no PE, ectasia of ascending aorta measuring 4.3 cm. Needs yearly chest CTA, next 12/2021, at [facility]. Optimized BP and increased metoprolol . Avoid heavy weight lifting. Recommend stopping meloxicam prn. Had Echo 11/16/2020 : LV chamber size is normal. LV wall thickness is normal. The estimated left ventricle ejection fraction is 65-70% (normal). There is mild aortic regurgitat ion. The mitral valve leaflet is mildly thickened. There is mild tricuspid regurgitat ion. Mild elevation of estimated RV systolic pressure, 45 mmHg. Irregular. Obtain repeat CTA chest for ascending aortic aneurysm mid-November 2021 at [facility]. Essential hypertension [id number] I10 Patient's blood pressure is well-contr olled on present medical therapy. Patient is tolerating , without difficulty , the current medication s. I have not made changes to the current regimen. Patient is advised to maintain a blood pressure diary. Patient was advised to eat a low-sodium diet (2 grams sodium or less daily). Increased to metoprolol succinate 100 mg qd 11/15/18. Increased amlodipine 5mg/Benaze pril 20mg to 10mg/20mg daily. (12/20/2018 ) Increased to metoprolol succinate 200 mg qd 11/09/19. Dyslipidemia 041325690 E 78.5 Needs to keep LDL less than 70, and HDL more than 40. Had 11/11/18: LDL 106. Began atorvastat in 40 mg qHS 11/15/18. Had 12-15-2018 Cholestero l 146,Trigly cerides 60,HDL 71,LDL 61 Had 11/05/19: LDL 66. Had 08/20/20:T C 145,TG 77,HDL 65, LDL 64. Continue atorvastat in. Obstructiv e sleep apnea syndrome 90735639 G47.33 Reports increased fatigue, worse in last 8 months, although fatigue present for 2 years. Had sleep study 10 years ago and was treated with CPAP when on prednisone . Off CPAP for several years. Had 12/02/18 Sleep Study: Findings are consistent with mild, non-positi onal obstructiv e sleep apnea (HOLLY). Has been on CPAP since 12/2018. Tolerating . Given increased fatigue, worse in last 6 months, obtained [facility] sleep center referral for considerat ion of CPAP titration. Previously , she was on 5-10 cmH20 [email or web address] d f/u with Dr. Lerma 12/2020, pulmonary, with PFTs (normal per patient report) and download of CPAP data, with increase in pressure support from -.She is compliant with CPAP 6-7 hours per night. Has pulm. HTN. Had Echo 11/16/2020 : LV chamber size is normal. LV wall thickness is normal. The estimated left ventricle ejection fraction is 65-70% (normal). There is mild aortic regurgitat ion. The mitral valve leaflet is mildly thickened. There is mild tricuspid regurgitat ion. Mild elevation of estimated RV systolic pressure, 45 mmHg. Irregular. Edema [id number] R60.9 Has bilateral leg edema for several months, resolved. Checked venous Doppler bilateral legs 05/22/20 CLARE: Negative bilateral venous study. Began HCTZ 12.5 mg qd 03/21/20. Had 04/16/20 BMP: NA 142, K 4.2, CL 103, CO2 32, GLU 74, BUN 16, CR 0.80, normal Mg. Chest pain [id number] R07. 2 Patient presents with exertional chest pain typical of angina and increased exertional dyspnea which can be an anginal equivalent . Given the history, exam findings and high cardiac risk factors, I feel additional investigat ion is warranted. I have made arrangemen ts in the near future for cardiac CTA. Given symptoms of typical exertional chest pain relieved with rest and progressiv e exertional dyspnea which can be an anginal equivalent , obtain cardiac CT angiogram to evaluate extent of coronary arterioscl erosis, in the event her stress test was a false negative. Has mild pulm. HTN. Had 11/08/20 LEXISCAN: Adequate Stress with lexiscan. Negative lexiscan stress test for ischemia. Normal LV systolic function Artifact noted. No previous study to compare. LVEF >60%. Had [facility] 11/12/18: normal coronaries , normal LV systolic function, dilated aortic root (4.5 cm) with thoracic aneurysm but no AV regurgitat ion. Obtain CBC, CMP, Mg, TSH, CPK. Dyspnea on exertion 6084 5006 R06.09 Stable. Had 11/08/20 LEXISCAN: Adequate Stress with lexiscan. Negative lexiscan stress test for ischemia. Normal LV systolic function Artifact noted. No previous study to compare. LVEF >60% Had 11/04/18 STRESS ECHO: Stress echocardio gram negative for inducible ischemia at 100% MPHR. No exercise induced chest pain. Average functional capacity. Had [facility] 11/12/18: normal coronaries , normal LV systolic function, dilated aortic root (4.5 cm) with thoracic aneurysm but no AV regurgitat ion. Had Echo 11/16/2020 : LV chamber size is normal. LV wall thickness is normal. The estimated left ventricle ejection fraction is 65-70% (normal). There is mild aortic regurgitat ion. The mitral valve leaflet is mildly thickened. There is mild tricuspid regurgitat ion. Mild elevation of estimated RV systolic pressure, 45 mmHg. Irregular. Had f/u with Dr. Lerma 12/2020, pulmonary, with PFTs (normal per patient report) and download of CPAP data, with increase in pressure support from -.She is compliant with CPAP 6-7 hours per night. Has mild pulm. HTN on serial echos. Has mild scarring of lung apices on CTA 11/27/20. She denies TB history but had occupation al exposure to mold. She has chronic cough with minimal clear sputum since fall 2019.Has f/u with Dr. Lerma, pulm., 01/2021. 10683 Jose Arthur MD [place] [facility] [address] [facility] [address] [place] [address] 03/29/2021 10:50:55 03/29/2021 13:01:38 Aortic valve regurgitation [id number] I35.1 Mild. Had Echo 11/16/2020 : LV chamber size is normal. LV wall thickness is normal. The estimated left ventricle ejection fraction is 65-70% (normal). There is mild aortic regurgitat ion. The mitral valve leaflet is mildly thickened. There is mild tricuspid regurgitat ion. Mild elevation of estimated RV systolic pressure, 45 mmHg. Irregular. Had ECHO 04/23/20: LV chamber size is normal, LV wall thickness is normal, there is normal global systolic function and contractil ity, the estimated LVEF is 60-65%(nor mal), there is increased left atrial pressure and grade II diastolic dysfunctio n, left atrium chamber is mildly dilated, right atrium chamber is mildly dilated,th ere is mild aortic valve sclerosis without significan t stenosis,t here is moderate aortic regurgitat ion,the mitral valve leaflet is milldy thickened, there is mild mitral regurgitat ion,there is mild to moderate tricuspid regurgitat ion,mild elevation of estimated RV systolic pressure,e stimated RVSP systolic pressure is 36 mmHg. May need eventual JOHN to exclude bicuspid AV with ascending aortic aneurysm, although AV reported as trileaflet on transthora cic echo. Aneurysm o f aortic root [id number] I71.2 Mild-moder ate aortic root dilatation with mild-moder ate AI. Stable. Had cardiac CTA 03/22/21: suboptimal due to lack of contrast (IV could not be obtained), mildly dilated aortic root 4.3 cm, no significan t CAD. Had CTA chest 11/27/20: Ectasia of ascending aorta measuring 4.3 cm, stable from 09/03/[address] 11/22/19: stable (4.3 x 4.0 cm) fusiform aneurysm of the ascending aorta without dissection . Had [facility] 11/12/18: normal coronaries , normal LV systolic function, dilated aortic root (4.5 cm) with thoracic aneurysm but no AV regurgitat ion. Had 11/11/18 CTA chest PE protocol: no PE, ectasia of ascending aorta measuring 4.3 cm. Needs yearly chest CTA, next 12/2021, at [facility]. Optimized BP and increased metoprolol . Avoid heavy weight lifting. Recommend stopping meloxicam prn. Had Echo 11/16/2020 : LV chamber size is normal. LV wall thickness is normal. The estimated left ventricle ejection fraction is 65-70% (normal). There is mild aortic regurgitat ion. The mitral valve leaflet is mildly thickened. There is mild tricuspid regurgitat ion. Mild elevation of estimated RV systolic pressure, 45 mmHg. Irregular. Obtain repeat CTA chest for ascending aortic aneurysm mid-November 2021 at [facility]. Essential hypertension [id number] I10 Patient's blood pressure is well-contr olled on present medical therapy. Patient is tolerating , without difficulty , the current medication s. I have not made changes to the current regimen. Patient is advised to maintain a blood pressure diary. Patient was advised to eat a low-sodium diet (2 grams sodium or less daily). Increased to metoprolol succinate 100 mg qd 11/15/18. Increased amlodipine 5mg/Benaze pril 20mg to 10mg/20mg daily. (12/20/2018 ) Increased to metoprolol succinate 200 mg qd 11/09/19. Dyslipidemia [id number] E 78.5 Needs to keep LDL less than 70, and HDL more than 40. Had 11/11/18: LDL 106. Began atorvastat in 40 mg qHS 11/15/18. Had 12-15-2018 Cholestero l 146,Trigly cerides 60,HDL 71,LDL 61 Had 11/05/19: LDL 66. Had 08/20/20:T C 145,TG 77,HDL 65, LDL 64. Continue atorvastat in. Obstructiv e sleep apnea syndrome [id number] G47.33 Reports increased fatigue, worse in last 8 months, although fatigue present for 2 years. Had sleep study 10 years ago and was treated with CPAP when on prednisone . Off CPAP for several years. Had 12/02/18 Sleep Study: Findings are consistent with mild, non-positi onal obstructiv e sleep apnea (HOLLY). Has been on CPAP since 12/2018. Tolerating . Given increased fatigue, worse in last 6 months, obtained [facility] sleep [facility] referral for CPAP titration with increased in pressure settings. Previously , she was on 5-10 cmH20 AutoPap.Jordan d f/u with Dr. Lerma 12/2020, pulmonary, with PFTs (normal per patient report) and download of CPAP data, with increase in pressure support from -.She is compliant with CPAP 6-7 hours per night. Has pulm. HTN. Had Echo 11/16/2020 : LV chamber size is normal. LV wall thickness is normal. The estimated left ventricle ejection fraction is 65-70% (normal). There is mild aortic regurgitat ion. The mitral valve leaflet is mildly thickened. There is mild tricuspid regurgitat ion. Mild elevation of estimated RV systolic pressure, 45 mmHg. Irregular. Edema [id number] R60.9 Has bilateral leg edema for several months, resolved. Checked venous Doppler bilateral legs 05/22/20 CLARE: Negative bilateral venous study. Began HCTZ 12.5 mg qd 03/21/20. Had 04/16/20 BMP: NA 142, K 4.2, CL 103, CO2 32, GLU 74, BUN 16, CR 0.80, normal Mg. Obtain labs [facility] 02/2021 BMP. Chest pain [id number] R07. 2 Resolved. Had cardiac CTA 03/22/21: suboptimal due to lack of contrast (IV could not be obtained), mildly dilated aortic root 4.3 cm, no significan t CAD. Has mild pulm. HTN. Had 11/08/20 LEXISCAN: Adequate Stress with lexiscan. Negative lexiscan stress test for ischemia. Normal LV systolic function Artifact noted. No previous study to compare. LVEF >60%. Had [facility] 11/12/18: normal coronaries , normal LV systolic function, dilated aortic root (4.5 cm) with thoracic aneurysm but no AV regurgitat ion. Dyspnea on exertion 6084 5006 R06.09 Improved. Had 11/08/20 LEXISCAN: Adequate Stress with lexiscan. Negative lexiscan stress test for ischemia. Normal LV systolic function Artifact noted. No previous study to compare. LVEF >60% Had 11/04/18 STRESS ECHO: Stress echocardio gram negative for inducible ischemia at 100% MPHR. No exercise induced chest pain. Average functional capacity. Had [facility] 11/12/18: normal coronaries , normal LV systolic function, dilated aortic root (4.5 cm) with thoracic aneurysm but no AV regurgitat ion. Had Echo 11/16/2020 : LV chamber size is normal. LV wall thickness is normal. The estimated left ventricle ejection fraction is 65-70% (normal). There is mild aortic regurgitat ion. The mitral valve leaflet is mildly thickened. There is mild tricuspid regurgitat ion. Mild elevation of estimated RV systolic pressure, 45 mmHg. Irregular. Had f/u with Dr. Lerma 12/2020, pulmonary, with PFTs (normal per patient report) and download of CPAP data, with increase in pressure support from 10-11.She is compliant with CPAP 6-7 hours per night. Has mild pulm. HTN on serial echos. Has mild scarring of lung apices on CTA 11/27/20. She denies TB history but had occupation al exposure to mold. She has chronic cough with minimal clear sputum since fall 2019.Has f/u with Dr. Lerma, pulm., 01/2021. 21989 Jose Arthur MD [place] [facility] [place] [address] 09/25/2021 11:04:38 09/25/2021 12:08:46 Aortic valve regurgitation [id number] I35.1 Mild. Had Echo 11/16/2020 : LV chamber size is normal. LV wall thickness is normal. The estimated left ventricle ejection fraction is 65-70% (normal). There is mild aortic regurgitat ion. The mitral valve leaflet is mildly thickened. There is mild tricuspid regurgitat ion. Mild elevation of estimated RV systolic pressure, 45 mmHg. Irregular. Had ECHO 04/23/20: LV chamber size is normal, LV wall thickness is normal, there is normal global systolic function and contractil ity, the estimated LVEF is 60-65%(nor mal), there is increased left atrial pressure and grade II diastolic dysfunctio n, left atrium chamber is mildly dilated, right atrium chamber is mildly dilated,th ere is mild aortic valve sclerosis without significan t stenosis,t here is moderate aortic regurgitat ion,the mitral valve leaflet is milldy thickened, there is mild mitral regurgitat ion,there is mild to moderate tricuspid regurgitat ion,mild elevation of estimated RV systolic pressure,e stimated RVSP systolic pressure is 36 mmHg. May need eventual JOHN to exclude bicuspid AV with ascending aortic aneurysm, although AV reported as trileaflet on transthora cic echo. Anticipate echo 03/2022. Aneurysm o f aortic root [id number] I71.2 Mild-moder ate aortic root dilatation with mild-moder ate AI. Stable. Had cardiac CTA 03/22/21: suboptimal due to lack of contrast (IV could not be obtained), mildly dilated aortic root 4.3 cm, no significan t CAD. Had CTA chest 11/27/20: Ectasia of ascending aorta measuring 4.3 cm, stable from 09/03/[address] 11/22/19: stable (4.3 x 4.0 cm) fusiform aneurysm of the ascending aorta without dissection . Had C 11/12/18: normal coronaries , normal LV systolic function, dilated aortic root (4.5 cm) with thoracic aneurysm but no AV regurgitat ion. Had 11/11/18 CTA chest PE protocol: no PE, ectasia of ascending aorta measuring 4.3 cm. Needs yearly chest CTA, next 12/2021, at [facility]. Optimized BP and increased metoprolol . Avoid heavy weight lifting. Recommend stopping meloxicam prn. Had Echo 11/16/2020 : LV chamber size is normal. LV wall thickness is normal. The estimated left ventricle ejection fraction is 65-70% (normal). There is mild aortic regurgitat ion. The mitral valve leaflet is mildly thickened. There is mild tricuspid regurgitat ion. Mild elevation of estimated RV systolic pressure, 45 mmHg. Irregular. Obtain repeat CTA chest for ascending aortic aneurysm mid-2021 at [facility]. Essential hypertension [id number] I10 Patient's blood pressure is well-contr olled on present medical therapy. Patient is tolerating , without difficulty , the current medication s. I have not made changes to the current regimen. Patient is advised to maintain a blood pressure diary. Patient was advised to eat a low-sodium diet (2 grams sodium or less daily). Increased to metoprolol succinate 100 mg qd 11/15/18. Increased amlodipine 5mg/Benaze pril 20mg to 10mg/20mg daily. (12/20/2018 ) Increased to metoprolol succinate 200 mg qd 11/09/19. Dyslipidemia [id number] E 78.5 Needs to keep LDL less than 70, and HDL more than 40. Had 11/11/18: LDL 106. Began atorvastat in 40 mg qHS 11/15/18. Had 12-15-2018 Cholestero l 146,Trigly cerides 60,HDL 71,LDL 61 Had 11/05/19: LDL 66. Had 08/20/20:T C 145,TG 77,HDL 65, LDL 64. Continue atorvastat in. Obtain FLP, CMP, Mg, TSH, CBC. Obstructiv e sleep apnea syndrome [id number] G47.33 Reports increased fatigue, worse in last 8 months, although fatigue present for 2 years. Had sleep study 10 years ago and was treated with CPAP when on prednisone . Off CPAP for several years. Had 12/02/18 Sleep Study: Findings are consistent with mild, non-positi onal obstructiv e sleep apnea (HOLLY). Has been on CPAP since 12/2018. Tolerating . Given increased fatigue, worse in last 6 months, obtained [facility] sleep [facility] referral for CPAP titration with increased in pressure settings. Previously , she was on 5-10 cmH20 AutoPap.Jordan d f/u with Dr. Lerma 12/2020, pulmonary, with PFTs (normal per patient report) and download of CPAP data, with increase in pressure support from -.She is compliant with CPAP 6-7 hours per night. Has pulm. HTN. Had Echo 11/16/2020 : LV chamber size is normal. LV wall thickness is normal. The estimated left ventricle ejection fraction is 65-70% (normal). There is mild aortic regurgitat ion. The mitral valve leaflet is mildly thickened. There is mild tricuspid regurgitat ion. Mild elevation of estimated RV systolic pressure, 45 mmHg. Irregular. Edema [id number] R60.9 Has bilateral leg edema for several months, resolved. Checked venous Doppler bilateral legs 05/22/20 CLARE: Negative bilateral venous study. Began HCTZ 12.5 mg qd 03/21/20. Had 04/16/20 BMP: NA 142, K 4.2, CL 103, CO2 32, GLU 74, BUN 16, CR 0.80, normal Mg. Obtain labs [facility] 02/2021 BMP. Chest pain [id number] R07. 2 Resolved. Had cardiac CTA 03/22/21: suboptimal due to lack of contrast (IV could not be obtained), mildly dilated aortic root 4.3 cm, no significan t CAD (<25% LAD, LCx, RCA). Has mild pulm. HTN. Had 11/08/20 LEXISCAN: Adequate Stress with lexiscan. Negative lexiscan stress test for ischemia. Normal LV systolic function Artifact noted. No previous study to compare. LVEF >60%. Had [facility] 11/12/18: normal coronaries , normal LV systolic function, dilated aortic root (4.5 cm) with thoracic aneurysm but no AV regurgitat ion. Dyspnea on exertion 6084 5006 R06.09 Improved. Had 11/08/20 LEXISCAN: Adequate Stress with lexiscan. Negative lexiscan stress test for ischemia. Normal LV systolic function Artifact noted. No previous study to compare. LVEF >60% Had 11/04/18 STRESS ECHO: Stress echocardio gram negative for inducible ischemia at 100% MPHR. No exercise induced chest pain. Average functional capacity. Had [facility] 11/12/18: normal coronaries , normal LV systolic function, dilated aortic root (4.5 cm) with thoracic aneurysm but no AV regurgitat ion. Had Echo 11/16/2020 : LV chamber size is normal. LV wall thickness is normal. The estimated left ventricle ejection fraction is 65-70% (normal). There is mild aortic regurgitat ion. The mitral valve leaflet is mildly thickened. There is mild tricuspid regurgitat ion. Mild elevation of estimated RV systolic pressure, 45 mmHg. Irregular. Had f/u with Dr. Lerma 12/2020, pulmonary, with PFTs (normal per patient report) and download of CPAP data, with increase in pressure support from 10-11.She is compliant with CPAP 6-7 hours per night. Has mild pulm. HTN on serial echos. Has mild scarring of lung apices on CTA 11/27/20. She denies TB history but had occupation al exposure to mold. She has chronic cough with minimal clear sputum since fall 2019.Has f/u with lexii Chiu., 01/2021. Coronary arteriosclerosis [id number] I25.10 Mild. Had cardiac CTA 03/22/21: suboptimal due to lack of contrast (IV could not be obtained), mildly dilated aortic root 4.3 cm, no significan t CAD (<25% LAD, LCx, RCA). Maximal medical therapy. Began ASA 81 mg qd 09/25/21. 40318 Jose Arthur MD [place] [facility] [address] [place] [address] 03/26/2022 11:05:56 03/26/2022 12:11:39 Aortic valve regurgitation [id number] I35.1 Mild. Had Echo 11/16/2020 : LV chamber size is normal. LV wall thickness is normal. The estimated left ventricle ejection fraction is 65-70% (normal). There is mild aortic regurgitat ion. The mitral valve leaflet is mildly thickened. There is mild tricuspid regurgitat ion. Mild elevation of estimated RV systolic pressure, 45 mmHg. Irregular. Had ECHO 04/23/20: LV chamber size is normal, LV wall thickness is normal, there is normal global systolic function and contractil ity, the estimated LVEF is 60-65%(nor mal), there is increased left atrial pressure and grade II diastolic dysfunctio n, left atrium chamber is mildly dilated, right atrium chamber is mildly dilated,th ere is mild aortic valve sclerosis without significan t stenosis,t here is moderate aortic regurgitat ion,the mitral valve leaflet is milldy thickened, there is mild mitral regurgitat ion,there is mild to moderate tricuspid regurgitat ion,mild elevation of estimated RV systolic pressure,e stimated RVSP systolic pressure is 36 mmHg. May need eventual JOHN to exclude bicuspid AV with ascending aortic aneurysm, although AV reported as trileaflet on transthora cic echo. Obtain echo to evaluate for structural /functiona l disease. Aneurysm o f aortic root [id number] I71.21 Mild-moder ate aortic root dilatation with mild-moder ate AI. Stable. Had cardiac CTA 03/22/21: suboptimal due to lack of contrast (IV could not be obtained), mildly dilated aortic root 4.3 cm, no significan t CAD. Had CTA chest 11/27/20: Ectasia of ascending aorta measuring 4.3 cm, stable from 09/03/[address] 11/22/19: stable (4.3 x 4.0 cm) fusiform aneurysm of the ascending aorta without dissection . Had [facility] 11/12/18: normal coronaries , normal LV systolic function, dilated aortic root (4.5 cm) with thoracic aneurysm but no AV regurgitat ion. Had 11/11/18 CTA chest PE protocol: no PE, ectasia of ascending aorta measuring 4.3 cm. Needs yearly chest CTA, next 12/2021, at [facility]. Optimized BP and increased metoprolol . Avoid heavy weight lifting. Recommend stopping meloxicam prn. Had Echo 11/16/2020 : LV chamber size is normal. LV wall thickness is normal. The estimated left ventricle ejection fraction is 65-70% (normal). There is mild aortic regurgitat ion. The mitral valve leaflet is mildly thickened. There is mild tricuspid regurgitat ion. Mild elevation of estimated RV systolic pressure, 45 mmHg. Irregular. Obtain repeat CTA chest for ascending aortic aneurysm at [facility]. Essential hypertension [id number] I10 Patient's blood pressure is well-contr olled on present medical therapy. Patient is tolerating , without difficulty , the current medication s. I have not made changes to the current regimen. Patient is advised to maintain a blood pressure diary. Patient was advised to eat a low-sodium diet (2 grams sodium or less daily). Increased to metoprolol succinate 100 mg qd 11/15/18. Increased amlodipine 5mg/Benaze pril 20mg to 10mg/20mg daily. (12/20/2018 ) Increased to metoprolol succinate 200 mg qd 11/09/19. Dyslipidemia 281075363 E 78.5 Needs to keep LDL less than 70, and HDL more than 40. Had 11/11/18: LDL 106. Began atorvastat in 40 mg qHS 11/15/18. Had 12-15-2018 Cholestero l 146,Trigly cerides 60,HDL 71,LDL 61 Had 11/05/19: LDL 66. Had 08/20/20:T C 145,TG 77,HDL 65, LDL 64. Continue atorvastat in. Had 01/03/22: LIPID: CH 153, HDL 70, TR 58, LDL 70, CMP: GL 82, BUN 21, CR 1.10, EGFR 52, NA 140, CH 4.5, CO2 101, CA 33, MG 2.3, CBC: WBC 7.2, RBC 4.70, HGB 13.1, HCT 40.7, PLT 288 Improve low-fat, low-choles terol diet. Obstructiv e sleep apnea syndrome [id number] G47.33 Reports improved fatigue. Had sleep study 10 years ago and was treated with CPAP when on prednisone . Off CPAP for several years. Had 12/02/18 Sleep Study: Findings are consistent with mild, non-positi onal obstructiv e sleep apnea (HOLLY). Has been on CPAP since 12/2018. Tolerating . Given increased fatigue, worse in last 6 months, obtained [facility] sleep center referral for CPAP titration with increased in pressure settings. Previously , she was on 5-10 cmH20 AutoPap.Jordan d f/u with Dr. Lerma 12/2020, pulmonary, with PFTs (normal per patient report) and download of CPAP data, with increase in pressure support from -.She is compliant with CPAP 6-7 hours per night. Has pulm. HTN. Had Echo 11/16/2020 : LV chamber size is normal. LV wall thickness is normal. The estimated left ventricle ejection fraction is 65-70% (normal). There is mild aortic regurgitat ion. The mitral valve leaflet is mildly thickened. There is mild tricuspid regurgitat ion. Mild elevation of estimated RV systolic pressure, 45 mmHg. Irregular. Edema [id number] R60.9 Has bilateral leg edema for several months, resolved. Checked venous Doppler bilateral legs 05/22/20 CLARE: Negative bilateral venous study. Began HCTZ 12.5 mg qd 03/21/20. Had 04/16/20 BMP: NA 142, K 4.2, CL 103, CO2 32, GLU 74, BUN 16, CR 0.80, normal Mg. Chest pain 62236754 R07. 2 Increased since 01/2022. Had cardiac CTA 03/22/21: suboptimal due to lack of contrast (IV could not be obtained), mildly dilated aortic root 4.3 cm, no significan t CAD (<25% LAD, LCx, RCA). Has mild pulm. HTN. Had 11/08/20 LEXISCAN: Adequate Stress with lexiscan. Negative lexiscan stress test for ischemia. Normal LV systolic function Artifact noted. No previous study to compare. LVEF >60%. Had [facility] 11/12/18: normal coronaries , normal LV systolic function, dilated aortic root (4.5 cm) with thoracic aneurysm but no AV regurgitat ion. Obtain echo to evaluate for structural /functiona l disease. Recommend acid suppressio n for GERD or GI consult as per PCP. Dyspnea on exertion 6084 5006 R06.09 Improved. Had 11/08/20 LEXISCAN: Adequate Stress with lexiscan. Negative lexiscan stress test for ischemia. Normal LV systolic function Artifact noted. No previous study to compare. LVEF >60% Had 11/04/18 STRESS ECHO: Stress echocardio gram negative for inducible ischemia at 100% MPHR. No exercise induced chest pain. Average functional capacity. Had [facility] 11/12/18: normal coronaries , normal LV systolic function, dilated aortic root (4.5 cm) with thoracic aneurysm but no AV regurgitat ion. Had Echo 11/16/2020 : LV chamber size is normal. LV wall thickness is normal. The estimated left ventricle ejection fraction is 65-70% (normal). There is mild aortic regurgitat ion. The mitral valve leaflet is mildly thickened. There is mild tricuspid regurgitat ion. Mild elevation of estimated RV systolic pressure, 45 mmHg. Irregular. Had f/u with Dr. Lerma 12/2020, pulmonary, with PFTs (normal per patient report) and download of CPAP data, with increase in pressure support from 10-11.She is compliant with CPAP 6-7 hours per night. Has mild pulm. HTN on serial echos. Has mild scarring of lung apices on CTA 11/27/20. She denies TB history but had occupation al exposure to mold. She has chronic cough with minimal clear sputum since fall 2019.Has f/u with Dr. Lerma, pulm., 01/2021. Coronary arteriosclerosis [id number] I25.10 Mild. Had cardiac CTA 03/22/21: suboptimal due to lack of contrast (IV could not be obtained), mildly dilated aortic root 4.3 cm, no significan t CAD (<25% LAD, LCx, RCA). Maximal medical therapy. Began ASA 81 mg qd 09/25/21. 76333 Jose Arthur MD [place] [facility] [address] [place] [address] 06/11/2022 11:13:53 06/11/2022 12:47:18 Aortic valve regurgitation 14966113 I35.1 Mild. Had 04/16/22 US, echocardio gram: LV chamber size is normal. There is normal global systolic function and contractil ity. The estimated left ventricle ejection fraction is 55-60% (normal). Mild AI. Normal RVSP 32 mmHg. Had Echo 11/16/2020 : LV chamber size is normal. LV wall thickness is normal. The estimated left ventricle ejection fraction is 65-70% (normal). There is mild aortic regurgitat ion. The mitral valve leaflet is mildly thickened. There is mild tricuspid regurgitat ion. Mild elevation of estimated RV systolic pressure, 45 mmHg. Irregular. Had ECHO 04/23/20: LV chamber size is normal, LV wall thickness is normal, there is normal global systolic function and contractil ity, the estimated LVEF is 60-65%(nor mal), there is increased left atrial pressure and grade II diastolic dysfunctio n, left atrium chamber is mildly dilated, right atrium chamber is mildly dilated,th ere is mild aortic valve sclerosis without significan t stenosis,t here is moderate aortic regurgitat ion,the mitral valve leaflet is milldy thickened, there is mild mitral regurgitat ion,there is mild to moderate tricuspid regurgitat ion,mild elevation of estimated RV systolic pressure,e stimated RVSP systolic pressure is 36 mmHg. May need eventual JOHN to exclude bicuspid AV with ascending aortic aneurysm, although AV reported as trileaflet on transthora cic echo. Obtain echo to evaluate for structural /functiona l disease. Aneurysm o f aortic root [id number] I71.21 Mild-moder ate aortic root dilatation with mild-moder ate AI. Stable. Had CT, angiogram, chest + abdomen, w/ contrast CTA CHEST PE protocol 04/24/22: Stable 4.3 cm diameter mid ascending aorta since 11/27/2020 . No PE. Had cardiac CTA 03/22/21: suboptimal due to lack of contrast (IV could not be obtained), mildly dilated aortic root 4.3 cm, no significan t CAD. Had CTA chest 11/27/20: Ectasia of ascending aorta measuring 4.3 cm, stable from 09/03/[address] 11/22/19: stable (4.3 x 4.0 cm) fusiform aneurysm of the ascending aorta without dissection . Had C 11/12/18: normal coronaries , normal LV systolic function, dilated aortic root (4.5 cm) with thoracic aneurysm but no AV regurgitat ion. Had 11/11/18 CTA chest PE protocol: no PE, ectasia of ascending aorta measuring 4.3 cm. Needs yearly chest CTA, next 12/2021, at [facility]. Optimized BP and increased metoprolol . Avoid heavy weight lifting. Recommend stopping meloxicam prn. Had Echo 11/16/2020 : LV chamber size is normal. LV wall thickness is normal. The estimated left ventricle ejection fraction is 65-70% (normal). There is mild aortic regurgitat ion. The mitral valve leaflet is mildly thickened. There is mild tricuspid regurgitat ion. Mild elevation of estimated RV systolic pressure, 45 mmHg. Irregular. Obtain repeat CTA chest 05/2023 for ascending aortic aneurysm at [facility]. Essential hypertension [id number] I10 Patient's blood pressure is well-contr olled on present medical therapy. Patient is tolerating , without difficulty , the current medication s. I have not made changes to the current regimen. Patient is advised to maintain a blood pressure diary. Patient was advised to eat a low-sodium diet (2 grams sodium or less daily). Increased to metoprolol succinate 100 mg qd 11/15/18. Increased amlodipine 5mg/Benaze pril 20mg to 10mg/20mg daily. (12/20/2018 ) Increased to metoprolol succinate 200 mg qd 11/09/19. Had 01/03/22: LIPID: CH 153, HDL 70, TR 58, LDL 70, CMP: GL 82, BUN 21, CR 1.10, EGFR 52, NA 140, CH 4.5, CO2 101, CA 33, MG 2.3, CBC: WBC 7.2, RBC 4.70, HGB 13.1, HCT 40.7, PLT 288 Had 05/15/22: BUN 33, Cr 1.49, K 4.4, AST 36, ALT 39, hgb 13.6 PCP stopped HCTZ and diclofenac given increased Cr 1.49 on 05/15/22 labs. Increase hydration. Obtain CMP, Mg, FLP. Dyslipidemia [id number] E 78.5 Needs to keep LDL less than 70, and HDL more than 40. Had 11/11/18: LDL 106. Began atorvastat in 40 mg qHS 11/15/18. Had 12-15-2018 Cholestero l 146,Trigly cerides 60,HDL 71,LDL 61 Had 11/05/19: LDL 66. Had 08/20/20:T C 145,TG 77,HDL 65, LDL 64. Continue atorvastat in. Had 01/03/22: LIPID: CH 153, HDL 70, TR 58, LDL 70, CMP: GL 82, BUN 21, CR 1.10, EGFR 52, NA 140, CH 4.5, CO2 101, CA 33, MG 2.3, CBC: WBC 7.2, RBC 4.70, HGB 13.1, HCT 40.7, PLT 288 Improve low-fat, low-choles terol diet. Obtain CMP, Mg, FLP. Obstructiv e sleep apnea syndrome [id number] G47.33 Reports fatigue. Had sleep study 10 years ago and was treated with CPAP when on prednisone . Off CPAP for several years. Had 12/02/18 Sleep Study: Findings are consistent with mild, non-positi onal obstructiv e sleep apnea (HOLLY). Has been on CPAP since 12/2018. Tolerating . Given increased fatigue, worse in last 6 months, obtained [facility] referral for CPAP titration with increased in pressure settings. Previously , she was on 5-10 cmH20 [email or web address] d f/u with Dr. Lerma 12/2020, pulmonary, with PFTs (normal per patient report) and download of CPAP data, with increase in pressure support from -.She is compliant with CPAP 6-7 hours per night. Had pulm. HTN in 2020. Had Echo 11/16/2020 : LV chamber size is normal. LV wall thickness is normal. The estimated left ventricle ejection fraction is 65-70% (normal). There is mild aortic regurgitat ion. The mitral valve leaflet is mildly thickened. There is mild tricuspid regurgitat ion. Mild elevation of estimated RV systolic pressure, 45 mmHg. Irregular. Had 04/16/22 US, echocardio gram: LV chamber size is normal. There is normal global systolic function and contractil ity. The estimated left ventricle ejection fraction is 55-60% (normal). Mild AI. Normal RVSP 32 mmHg. Edema [id number] R60.9 Has bilateral leg edema for several months, resolved. Checked venous Doppler bilateral legs 05/22/20 CLARE: Negative bilateral venous study. Began HCTZ 12.5 mg qd 03/21/20. Had 04/16/20 BMP: NA 142, K 4.2, CL 103, CO2 32, GLU 74, BUN 16, CR 0.80, normal Mg. Chest pain [id number] R07. 2 Resolved. Had cardiac CTA 03/22/21: suboptimal due to lack of contrast (IV could not be obtained), mildly dilated aortic root 4.3 cm, no significan t CAD (<25% LAD, LCx, RCA). Has mild pulm. HTN. Had 11/08/20 LEXISCAN: Adequate Stress with lexiscan. Negative lexiscan stress test for ischemia. Normal LV systolic function Artifact noted. No previous study to compare. LVEF >60%. Had [facility] 11/12/18: normal coronaries , normal LV systolic function, dilated aortic root (4.5 cm) with thoracic aneurysm but no AV regurgitat ion. Obtain echo to evaluate for structural /functiona l disease. Recommend acid suppressio n for GERD or GI consult as per PCP. Dyspnea on exertion 6084 5006 R06.09 Increased. She reports since early 05/2022 increased exertional dyspnea with chest and head congestion and cough. Congestion improving but exertional dyspnea persists. Dr. Lerma adjusted asthma medication with plan for sleep CPAP titration and PFTs ordered. Had 11/08/20 LEXISCAN: Adequate Stress with lexiscan. Negative lexiscan stress test for ischemia. Normal LV systolic function Artifact noted. No previous study to compare. LVEF >60% Had 11/04/18 STRESS ECHO: Stress echocardio gram negative for inducible ischemia at 100% MPHR. No exercise induced chest pain. Average functional capacity. Had [facility] 11/12/18: normal coronaries , normal LV systolic function, dilated aortic root (4.5 cm) with thoracic aneurysm but no AV regurgitat ion. Had Echo 11/16/2020 : LV chamber size is normal. LV wall thickness is normal. The estimated left ventricle ejection fraction is 65-70% (normal). There is mild aortic regurgitat ion. The mitral valve leaflet is mildly thickened. There is mild tricuspid regurgitat ion. Mild elevation of estimated RV systolic pressure, 45 mmHg. Irregular. Had f/u with Dr. Lerma 12/2020, pulmonary, with PFTs (normal per patient report) and download of CPAP data, with increase in pressure support from 10-11.She is compliant with CPAP 6-7 hours per night. Has mild pulm. HTN on serial echos. Has mild scarring of lung apices on CTA 11/27/20. She denies TB history but had occupation al exposure to mold. She has chronic cough with minimal clear sputum since fall 2019.Has f/u with Dr. Lerma, pulm., 01/2021. Had cardiac CTA 03/22/21: suboptimal due to lack of contrast (IV could not be obtained), mildly dilated aortic root 4.3 cm, no significan t CAD. If exertional dyspnea which can be an anginal equivalent does not improve in the coming month, anticipate repeat stress test. Coronary arteriosclerosis [id number] I25.10 Mild. Had cardiac CTA 03/22/21: suboptimal due to lack of contrast (IV could not be obtained), mildly dilated aortic root 4.3 cm, no significan t CAD (<25% LAD, LCx, RCA). Maximal medical therapy. Began ASA 81 mg qd 09/25/21. [id number] Jose Arthur MD [id number] [place] [address] 07/30/2022 14:08:58 07/30/2022 14:53:44 Aortic valve regurgitation [id number] I35.1 Mild.Had 04/16/22 US, echocardio gram: LV chamber size is normal. There is normal global systolic function and contractil ity. The estimated left ventricle ejection fraction is 55-60% (normal). Mild AI. Normal RVSP 32 mmHg. Had Echo 11/16/2020 : LV chamber size is normal. LV wall thickness is normal. The estimated left ventricle ejection fraction is 65-70% (normal). There is mild aortic regurgitat ion. The mitral valve leaflet is mildly thickened. There is mild tricuspid regurgitat ion. Mild elevation of estimated RV systolic pressure, 45 mmHg. Irregular. Had ECHO 04/23/20: LV chamber size is normal, LV wall thickness is normal, there is normal global systolic function and contractil ity, the estimated LVEF is 60-65%(nor mal), there is increased left atrial pressure and grade II diastolic dysfunctio n, left atrium chamber is mildly dilated, right atrium chamber is mildly dilated,th ere is mild aortic valve sclerosis without significan t stenosis,t here is moderate aortic regurgitat ion,the mitral valve leaflet is milldy thickened, there is mild mitral regurgitat ion,there is mild to moderate tricuspid regurgitat ion,mild elevation of estimated RV systolic pressure,e stimated RVSP systolic pressure is 36 mmHg. May need eventual JOHN to exclude bicuspid AV with ascending aortic aneurysm, although AV reported as trileaflet on transthora cic echo. Obtain echo next 04/2023. Aneurysm o f aortic root [id number] I71.21 Mild-moder ate aortic root dilatation with mild-moder ate AI. Stable. Had CT, angiogram, chest + abdomen, w/ contrast CTA CHEST PE protocol 04/24/22: Stable 4.3 cm diameter mid ascending aorta since 11/27/2020 . No PE. Had cardiac CTA 03/22/21: suboptimal due to lack of contrast (IV could not be obtained), mildly dilated aortic root 4.3 cm, no significan t CAD. Had CTA chest 11/27/20: Ectasia of ascending aorta measuring 4.3 cm, stable from 09/03/[address] 11/22/19: stable (4.3 x 4.0 cm) fusiform aneurysm of the ascending aorta without dissection . Had [facility] 11/12/18: normal coronaries , normal LV systolic function, dilated aortic root (4.5 cm) with thoracic aneurysm but no AV regurgitat ion. Had 11/11/18 CTA chest PE protocol: no PE, ectasia of ascending aorta measuring 4.3 cm. Needs yearly chest CTA, next 12/2021, at [facility]. Optimized BP and increased metoprolol . Avoid heavy weight lifting. Had Echo 11/16/2020 : LV chamber size is normal. LV wall thickness is normal. The estimated left ventricle ejection fraction is 65-70% (normal). There is mild aortic regurgitat ion. The mitral valve leaflet is mildly thickened. There is mild tricuspid regurgitat ion. Mild elevation of estimated RV systolic pressure, 45 mmHg. Irregular. Obtain repeat CTA chest 05/2023 for ascending aortic aneurysm at [facility]. Essential hypertension [id number] I10 Patient's blood pressure is well-contr olled on present medical therapy. Patient is tolerating , without difficulty , the current medication s. I have not made changes to the current regimen. Patient is advised to maintain a blood pressure diary. Patient was advised to eat a low-sodium diet (2 grams sodium or less daily). Increased to metoprolol succinate 100 mg qd 11/15/18. Increased amlodipine 5mg/Benaze pril 20mg to 10mg/20mg daily. (12/20/2018 ) Increased to metoprolol succinate 200 mg qd 11/09/19. Had 01/03/22: LIPID: CH 153, HDL 70, TR 58, LDL 70, CMP: GL 82, BUN 21, CR 1.10, EGFR 52, NA 140, CH 4.5, CO2 101, CA 33, MG 2.3, CBC: WBC 7.2, RBC 4.70, HGB 13.1, HCT 40.7, PLT 288 Had 05/15/22: BUN 33, Cr 1.49, K 4.4, AST 36, ALT 39, hgb 13.6 PCP stopped HCTZ and diclofenac given increased Cr 1.49 on 05/15/22 labs. Increase hydration. Had 07/21/22: LDL 68, Cr 0.98, K 4.2, Mg 2.1, with normalizat ion of Cr. Obtain BMP, Mg. Dyslipidemia [id number] E 78.5 Needs to keep LDL less than 70, and HDL more than 40. Had 11/11/18: LDL 106. Began atorvastat in 40 mg qHS 11/15/18. Had 12-15-2018 Cholestero l 146,Trigly cerides 60,HDL 71,LDL 61 Had 11/05/19: LDL 66. Had 08/20/20:T C 145,TG 77,HDL 65, LDL 64. Continue atorvastat in. Had 01/03/22: LIPID: CH 153, HDL 70, TR 58, LDL 70, CMP: GL 82, BUN 21, CR 1.10, EGFR 52, NA 140, CH 4.5, CO2 101, CA 33, MG 2.3, CBC: WBC 7.2, RBC 4.70, HGB 13.1, HCT 40.7, PLT 288 Improve low-fat, low-choles terol diet. Had 07/21/22: LDL 68, Cr 0.98, K 4.2, Mg 2.1, Obstructiv e sleep apnea syndrome [id number] G47.33 Reports fatigue. Had sleep study 10 years ago and was treated with CPAP when on prednisone . Off CPAP for several years. Had 12/02/18 Sleep Study: Findings are consistent with mild, non-positi onal obstructiv e sleep apnea (HOLLY). Has been on CPAP since 12/2018. Tolerating . Given increased fatigue, worse in last 6 months, obtained [facility] sleep center referral for CPAP titration with increase in pressure settings. Previously , she was on 5-10 cmH20 [email or web address] d f/u with Dr. Lerma 12/2020, pulmonary, with PFTs (normal per patient report) and download of CPAP data, with increase in pressure support from -. She had increased pressure support per Dr. Lerma 07/2022.She is compliant with CPAP 6-7 hours per night. Had pulm. HTN in 2020. Had Echo 11/16/2020 : LV chamber size is normal. LV wall thickness is normal. The estimated left ventricle ejection fraction is 65-70% (normal). There is mild aortic regurgitat ion. The mitral valve leaflet is mildly thickened. There is mild tricuspid regurgitat ion. Mild elevation of estimated RV systolic pressure, 45 mmHg. Irregular. Had 04/16/22 US, echocardio gram: LV chamber size is normal. There is normal global systolic function and contractil ity. The estimated left ventricle ejection fraction is 55-60% (normal). Mild AI. Normal RVSP 32 mmHg. Edema [id number] R60.9 Has bilateral leg edema for several months, improved. Checked venous Doppler bilateral legs 05/22/20 CLARE: Negative bilateral venous study. Chest pain [id number] R07. 2 Resolved. Had cardiac CTA 03/22/21: suboptimal due to lack of contrast (IV could not be obtained), mildly dilated aortic root 4.3 cm, no significan t CAD (<25% LAD, LCx, RCA). Has mild pulm. HTN. Had 11/08/20 LEXISCAN: Adequate Stress with lexiscan. Negative lexiscan stress test for ischemia. Normal LV systolic function Artifact noted. No previous study to compare. LVEF >60%. Had [facility] 11/12/18: normal coronaries , normal LV systolic function, dilated aortic root (4.5 cm) with thoracic aneurysm but no AV regurgitat ion. Consider acid suppressio n for GERD or GI consult as per PCP. Dyspnea on exertion 6084 5006 R06.09 Improved. She reports since early 05/2022 increased exertional dyspnea with chest and head congestion and cough. Congestion improving and exertional dyspnea now improved. Dr. Lerma adjusted asthma medication . Had 11/08/20 LEXISCAN: Adequate Stress with lexiscan. Negative lexiscan stress test for ischemia. Normal LV systolic function Artifact noted. No previous study to compare. LVEF >60% Had 11/04/18 STRESS ECHO: Stress echocardio gram negative for inducible ischemia at 100% MPHR. No exercise induced chest pain. Average functional capacity. Had [facility] 11/12/18: normal coronaries , normal LV systolic function, dilated aortic root (4.5 cm) with thoracic aneurysm but no AV regurgitat ion. Had Echo 11/16/2020 : LV chamber size is normal. LV wall thickness is normal. The estimated left ventricle ejection fraction is 65-70% (normal). There is mild aortic regurgitat ion. The mitral valve leaflet is mildly thickened. There is mild tricuspid regurgitat ion. Mild elevation of estimated RV systolic pressure, 45 mmHg. Irregular. Had f/u with Dr. Lerma 12/2020, pulmonary, with PFTs (normal per patient report) and download of CPAP data, with increase in pressure support from 10-11.She is compliant with CPAP 6-7 hours per night. Has mild pulm. HTN on serial echos. Has mild scarring of lung apices on CTA 11/27/20. She denies TB history but had occupation al exposure to mold. She has chronic cough with minimal clear sputum since fall 2019.Has f/u with Dr. Lerma, pulm., 01/2021. Had cardiac CTA 03/22/21: suboptimal due to lack of contrast (IV could not be obtained), mildly dilated aortic root 4.3 cm, no significan t CAD. Monitor for continued improvemen t in exertional dyspnea, with recent change in CPAP settings per Dr. Lerma 07/2022. Coronary arteriosclerosis [id number] I25.10 Mild. Had cardiac CTA 03/22/21: suboptimal due to lack of contrast (IV could not be obtained), mildly dilated aortic root 4.3 cm, no significan t CAD (<25% LAD, LCx, RCA). Maximal medical therapy. Began ASA 81 mg qd 09/25/21. [id number] Jose Arthur MD [place] [address] [place] [address] 10/29/2022 11:04:30 10/29/2022 12:11:26 Aortic valve regurgitation [id number] I35.1 Mild.Had 04/16/22 US, echocardio gram: LV chamber size is normal. There is normal global systolic function and contractil ity. The estimated left ventricle ejection fraction is 55-60% (normal). Mild AI. Normal RVSP 32 mmHg. Had Echo 11/16/2020 : LV chamber size is normal. LV wall thickness is normal. The estimated left ventricle ejection fraction is 65-70% (normal). There is mild aortic regurgitat ion. The mitral valve leaflet is mildly thickened. There is mild tricuspid regurgitat ion. Mild elevation of estimated RV systolic pressure, 45 mmHg. Irregular. Had ECHO 04/23/20: LV chamber size is normal, LV wall thickness is normal, there is normal global systolic function and contractil ity, the estimated LVEF is 60-65%(nor mal), there is increased left atrial pressure and grade II diastolic dysfunctio n, left atrium chamber is mildly dilated, right atrium chamber is mildly dilated,th ere is mild aortic valve sclerosis without significan t stenosis,t here is moderate aortic regurgitat ion,the mitral valve leaflet is milldy thickened, there is mild mitral regurgitat ion,there is mild to moderate tricuspid regurgitat ion,mild elevation of estimated RV systolic pressure,e stimated RVSP systolic pressure is 36 mmHg. May need eventual JOHN to exclude bicuspid AV with ascending aortic aneurysm, although AV reported as trileaflet on transthora cic echo. Obtain echo next 04/2023. Aneurysm o f aortic root [id number] I71.21 Mild-moder ate aortic root dilatation with mild-moder ate AI. Stable. Had CT, angiogram, chest + abdomen, w/ contrast CTA CHEST PE protocol 04/24/22: Stable 4.3 cm diameter mid ascending aorta since 11/27/2020 . No PE. Had cardiac CTA 03/22/21: suboptimal due to lack of contrast (IV could not be obtained), mildly dilated aortic root 4.3 cm, no significan t CAD. Had CTA chest 11/27/20: Ectasia of ascending aorta measuring 4.3 cm, stable from 09/03/[address] 11/22/19: stable (4.3 x 4.0 cm) fusiform aneurysm of the ascending aorta without dissection . Had C 11/12/18: normal coronaries , normal LV systolic function, dilated aortic root (4.5 cm) with thoracic aneurysm but no AV regurgitat ion. Had 11/11/18 CTA chest PE protocol: no PE, ectasia of ascending aorta measuring 4.3 cm. Needs yearly chest CTA, next 12/2021, at [facility]. Optimized BP and increased metoprolol . Avoid heavy weight lifting. Had Echo 11/16/2020 : LV chamber size is normal. LV wall thickness is normal. The estimated left ventricle ejection fraction is 65-70% (normal). There is mild aortic regurgitat ion. The mitral valve leaflet is mildly thickened. There is mild tricuspid regurgitat ion. Mild elevation of estimated RV systolic pressure, 45 mmHg. Irregular. Obtain repeat CTA chest 05/2023 for ascending aortic aneurysm at [facility]. Essential hypertension [id number] I10 Patient's blood pressure is well-contr olled on present medical therapy. Patient is tolerating , without difficulty , the current medication s. I have not made changes to the current regimen. Patient is advised to maintain a blood pressure diary. Patient was advised to eat a low-sodium diet (2 grams sodium or less daily). Increased to metoprolol succinate 100 mg qd 11/15/18. Increased amlodipine 5mg/Benaze pril 20mg to 10mg/20mg daily. (12/20/2018 ) Increased to metoprolol succinate 200 mg qd 11/09/19. Had 01/03/22: LIPID: CH 153, HDL 70, TR 58, LDL 70, CMP: GL 82, BUN 21, CR 1.10, EGFR 52, NA 140, CH 4.5, CO2 101, CA 33, MG 2.3, CBC: WBC 7.2, RBC 4.70, HGB 13.1, HCT 40.7, PLT 288 Had 05/15/22: BUN 33, Cr 1.49, K 4.4, AST 36, ALT 39, hgb 13.6 PCP stopped HCTZ and diclofenac given increased Cr 1.49 on 05/15/22 labs. Increase hydration. Had 07/21/22: LDL 68, Cr 0.98, K 4.2, Mg 2.1, with normalizat ion of Cr. Obtained 10/17/22: Cr 1.15, K 4.3, Mg 2.2 Dyslipidemia [id number] E 78.5 Needs to keep LDL less than 70, and HDL more than 40. Had 11/11/18: LDL 106. Began atorvastat in 40 mg qHS 11/15/18. Had 12-15-2018 Cholestero l 146,Trigly cerides 60,HDL 71,LDL 61 Had 11/05/19: LDL 66. Had 08/20/20:T C 145,TG 77,HDL 65, LDL 64. Continue atorvastat in. Had 01/03/22: LIPID: CH 153, HDL 70, TR 58, LDL 70, CMP: GL 82, BUN 21, CR 1.10, EGFR 52, NA 140, CH 4.5, CO2 101, CA 33, MG 2.3, CBC: WBC 7.2, RBC 4.70, HGB 13.1, HCT 40.7, PLT 288 Improve low-fat, low-choles terol diet. Had 07/21/22: LDL 68, Cr 0.98, K 4.2, Mg 2.1, Obtain FLP, CMP, Mg, TSH, CBC. Obstructiv e sleep apnea syndrome [id number] G47.33 Reports fatigue. Had sleep study 10 years ago and was treated with CPAP when on prednisone . Off CPAP for several years. Had 12/02/18 Sleep Study: Findings are consistent with mild, non-positi onal obstructiv e sleep apnea (HOLLY). Has been on CPAP since 12/2018. Tolerating . Given increased fatigue, worse in last 6 months, obtained [facility] sleep center referral for CPAP titration with increase in pressure settings. Previously , she was on 5-10 cmH20 [email or web address] d f/u with Dr. Lerma 12/2020, pulmonary, with PFTs (normal per patient report) and download of CPAP data, with increase in pressure support from -. She had increased pressure support per Dr. Lerma 07/2022.She is compliant with CPAP 6-7 hours per night. Had pulm. HTN in 2020. Had Echo 11/16/2020 : LV chamber size is normal. LV wall thickness is normal. The estimated left ventricle ejection fraction is 65-70% (normal). There is mild aortic regurgitat ion. The mitral valve leaflet is mildly thickened. There is mild tricuspid regurgitat ion. Mild elevation of estimated RV systolic pressure, 45 mmHg. Irregular. Had 04/16/22 US, echocardio gram: LV chamber size is normal. There is normal global systolic function and contractil ity. The estimated left ventricle ejection fraction is 55-60% (normal). Mild AI. Normal RVSP 32 mmHg. Edema [id number] R60.9 Has bilateral leg edema for several months, improved. Checked venous Doppler bilateral legs 05/22/20 CALRE: Negative bilateral venous study. Chest pain [id number] R07. 2 Resolved. Had cardiac CTA 03/22/21: suboptimal due to lack of contrast (IV could not be obtained), mildly dilated aortic root 4.3 cm, no significan t CAD (<25% LAD, LCx, RCA). Has mild pulm. HTN. Had 11/08/20 LEXISCAN: Adequate Stress with lexiscan. Negative lexiscan stress test for ischemia. Normal LV systolic function Artifact noted. No previous study to compare. LVEF >60%. Had [facility] 11/12/18: normal coronaries , normal LV systolic function, dilated aortic root (4.5 cm) with thoracic aneurysm but no AV regurgitat ion. Consider acid suppressio n for GERD or GI consult as per PCP. Dyspnea on exertion 6084 5006 R06.09 Improved. She reports since early 05/2022 increased exertional dyspnea with chest and head congestion and cough. Congestion improving and exertional dyspnea now improved. Dr. Lerma adjusted asthma medication . Had 11/08/20 LEXISCAN: Adequate Stress with lexiscan. Negative lexiscan stress test for ischemia. Normal LV systolic function Artifact noted. No previous study to compare. LVEF >60% Had 11/04/18 STRESS ECHO: Stress echocardio gram negative for inducible ischemia at 100% MPHR. No exercise induced chest pain. Average functional capacity. Had LHC 11/12/18: normal coronaries , normal LV systolic function, dilated aortic root (4.5 cm) with thoracic aneurysm but no AV regurgitat ion. Had Echo 11/16/2020 : LV chamber size is normal. LV wall thickness is normal. The estimated left ventricle ejection fraction is 65-70% (normal). There is mild aortic regurgitat ion. The mitral valve leaflet is mildly thickened. There is mild tricuspid regurgitat ion. Mild elevation of estimated RV systolic pressure, 45 mmHg. Irregular. Had f/u with Dr. Lerma 12/2020, pulmonary, with PFTs (normal per patient report) and download of CPAP data, with increase in pressure support from -.She is compliant with CPAP 6-7 hours per night. Has mild pulm. HTN on serial echos. Has mild scarring of lung apices on CTA 11/27/20. She denies TB history but had occupation al exposure to mold. She has chronic cough with minimal clear sputum since fall 2019.Has f/u with Dr. Lerma, pulm., 01/2021. Had cardiac CTA 03/22/21: suboptimal due to lack of contrast (IV could not be obtained), mildly dilated aortic root 4.3 cm, no significan t CAD. Monitor for continued improvemen t in exertional dyspnea, with recent change in CPAP settings per Dr. Lerma 07/2022. Coronary arteriosclerosis [id number] I25.10 Mild. Had cardiac CTA 03/22/21: suboptimal due to lack of contrast (IV could not be obtained), mildly dilated aortic root 4.3 cm, no significan t CAD (<25% LAD, LCx, RCA). Maximal medical therapy. Began ASA 81 mg qd 09/25/21. Health Concerns Section Related Observation LastModified by Organization Detai ls LastModified Time None Recorded Concern Status LastModified by Organization Details LastModified Time None Recorded Advance Directives Directive None Recorded Payers Insurance Date Sequence Insurance Name Policy Number Policy [place] Covered Member ID [place] Member ID Guarantor Name 10/26/2022 1 [employer] (POS) [id number] Reanna Kramer [id number] Reanna Kramer Notes Date Note Type Note Provider Name and Address Organization Details Recorded Time 09/25/2021 text/html 09/25/21 CC : Fu on 6 mo check up. 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 She reports doing well. Reports much less fatigue since change in inhalers per lexii Chiu. Has history of LE swelling, largely resolved. States she has had resolution of dry cough with CXR per PCP.She had 2nd COVID-19 vaccine 08/28/2020. Had cardiac CTA 03/22/21: suboptimal due to lack of contrast (IV could not be obtained), mildly dilated aortic root 4.3 cm, no significant CAD (<25% LAD, LCx, RCA). Had CT chest 11/27/20: Ectasia of ascending aorta measuring 4.3 cm, stable from 09/03/20. Had CHEST CTA 11/22/19: stable fusiform aneurysm (4.3 x 4.0 cm) of the ascending aorta without dissection. For chest pain, she went to [facility] ED and had repeat CTA chest 12/06/19 with stable findings per patient report (report pending). Patient was seen at [facility] 11/03/18 for chest pain. For better BP control, metoprolol was started. She monitors her blood pressures daily, ranges 120-133/67-50, HR 56-63. She walks 3x/day for 20 min. each time with decreased dyspnea, no chest pain with walking. She reports decreased fatigue and decreased exertional dyspnea with yardwork. Had 11/04/18 STRESS ECHO: Stress echocardiogram negative for inducible ischemia at 100% MPHR. No exercise induced chest pain. Average functional capacity. Patient was seen again at [facility] 11/11/18 for chest pain. Had C 11/12/18: normal coronaries, normal LV systolic function, dilated aortic root (4.5 cm) with thoracic aneurysm but no AV regurgitation. Had 11/11/18 CTA chest PE protocol: no PE, ectasia of ascending aorta measuring 4.3 cm. Had CHEST CTA 11/22/19: stable fusiform aneurysm (4.3 x 4.0 cm) of the ascending aorta without dissection. Reports home BP < 130/80 most of the time. Patient reports not feeling well sometimes. Patient is active, exercising regularly with walking and gardens.. Has probable left rotator cuff disease, awaiting f/u with PCP. No chest pain. Arm pain reported, left, positional. Receiving PT for left shoulder. No neck pain. No nausea and vomiting. No diaphoresis. No shortness of breath at rest. Dyspnea on exertion reported, improved. Fatigue reported.No orthopnea. No PND. Leg swelling reported, intermittent, minimal. Palpitation reported, fluttering for 2-3 sec. only. No dizziness. No syncope . No pre-syncope. No claudication. No major bleeding events. No side effects from medications. Complete ROS negative except as stated in the HPI and ROS. Had EK11/11/2018 Sinus rhythm. Borderline R wave progression, anterior leads. Had 12/02/18 Sleep Study: Findings are consistent with mild, non-positional obstructive sleep apnea (HOLLY). Had cardiac CTA 03/22/21: suboptimal due to lack of contrast (IV could not be obtained), mildly dilated aortic root 4.3 cm, no significant CAD. Had LHC 11/12/18: normal coronaries, normal LV systolic function, dilated aortic root (4.5 cm) with thoracic aneurysm but no AV regurgitation. Had CHEST CTA 11/22/19: stable fusiform aneurysm (4.3 x 4.0 cm) of the ascending aorta without dissection. Had 11/08/20 LEXISCAN: Adequate Stress with lexiscan. Negative lexiscan stress test for ischemia. Normal LV systolic function Artifact noted. No previous study to compare. LVEF >60%. Had Echo 11/16/2020: LV chamber size is normal. LV wall thickness is normal. The estimated left ventricle ejection fraction is 65-70% (normal). There is mild aortic regurgitation. The mitral valve leaflet is mildly thickened. There is mild tricuspid regurgitation. Mild elevation of estimated RV systolic pressure, 45 mmHg. Irregular. Had ECHO 04/23/20: LV chamber size is normal, LV wall thickness is normal, there is normal global systolic function and contractility, the estimated LVEF is 60-65%(normal), there is increased left atrial pressure and grade II diastolic dysfunction, left atrium chamber is mildly dilated, right atrium chamber is mildly dilated,there is mild aortic valve sclerosis without significant stenosis,there is moderate aortic regurgitation,the mitral valve leaflet is milldy thickened,there is mild mitral regurgitation, there is mild to moderate tricuspid regurgitation, mild elevation of estimated RV systolic pressure, estimated RVSP systolic pressure is 36 mmHg. Results from this visit, or from the past:01/08/2021 12:00am CMP: GL 107 BUN 20 NA 143 K 4.4 CA 9.7 ALK 65 AST 20 ALT 16 MAG 2.2CK 77 TSH 1.41 CBC: WBC 7.1 RBC 4.67 HGB 13.0 HCT 40.4 PLT 270CBC W/ DIFF 01/08/2021 12:00am 11/27/20:Cr 1.10 08/20/20:Na 142,K 4.3,Cl 102,Co2 33,Glu 81,Bun 21,Cr 0.:TC 145,TG 77,HDL 65,LDL 64. 04/16/20 BMP: NA 142, K 4.2, CL 103, CO2 32, GLU 74, BUN 16, CR 0. M.210 M.110 CBC: WBC 7.8, HCT 41.4, PLT 71866 CMP: NA 143, K 4.2, CL 104, CO2 32, GLU 95, BUN 20, CR 0.90, AST 20, ALT CBC: WBC 9.2, HGB 13.2, HCT 41.3, PLT 00576 D-DIMER: 0. BMP: NA 140, K 4.1, CL 104, CO2 29, GLU 93, BUN 18, CR 0. PT/INR: PT 12.6, INR 1.005 CMP: NA 142, K 4.7, CL 104, CO2 30, GLU 86, BUN 19, CR 0.90, AST 24, ALT LIPID: TC 151, TR 48, HDL 71, LDL 66creatinine, QN, unspecified duration, urine 11-22-2019 CR 0.80 Had 11/05/19: LDL 66, Cr 0.9, K 4.7, Mg 2.2 lipid panel, blood 12-15-2018 Cholesterol 146,Triglycerides 60,HDL 71,LDL 61 BMP, serum or plasma 11-11-2018 11/11/18: LDL 106, D-dimer 0.97 (high). US, duplex, venous, lower extremity 05-22-2020 05/22/20 CLARE DOP: Negative bilateral venous study. 11/08/20 LEXISCAN Adequate Stress with lexiscan. Negative lexiscan stress test for ischemia. Normal LV systolic function Artifact noted. No previous study to compare. LVEF >60% CT chest 11/27/20:Ectasia of ascending aorta measuring 4.3 cm stable from 09/03/20 11/27/20:Cr 1. EKG: NSR, Poor R progression in chest leads 11/09/19 EKG: QRS NSR, possible, septal infarct. abnormal ECG05/11/19 EKG: Normal sinus rhythm, within normal limitsEK11/11/2018 Sinus rhythm. Borderline R wave progression, anterior leads. Echo 11/16/2020: LV chamber size is normal. LV wall thickness is normal. The estimated left ventricle ejection fraction is 65-70% (normal). There is mild aortic regurgitation. The mitral valve leaflet is mildly thickened. There is mild tricuspid regurgitation. Mild elevation of estimated RV systolic pressure. Irregular. ECHO 04/23/20:LV chamber size is normal,LV wall thickness is normal,there is normal global systolic function and contractility,the estimated LVEF is 60-65%(normal),there is increased left atrial pressure and grade II diastolic dysfunction,left atrium chamber is mildly dialted,rioght atrium chamber is mildly dialted,there is mild aortic valve sclerosis without significant stenosis,there is moderate aortic regurgitation,the mitral valve leaflet is milldy thickened,there is mild mitral regurgitatoion,there is mild to moderate tricuspid regurgitation,mild elevation of estimated RV systolic pressure,estimated RVSP systolic pressure is [address] 11/22/19: stable fusiform aneurysm of the ascending aorta without dessection. 11/04/18 STRESS ECHO: Stress echocardiogram negative for inducible ischemia at 100% MPHR. No exercise induced chest pain. Average functional capacity. Had [facility] 11/12/18: normal coronaries, normal LV systolic function, dilated aortic root (4.5 cm) with thoracic aneurysm but no AV regurgitation. Had 11/11/18 CTA chest PE protocol: no PE, ectasia of ascending aorta measuring 4.3 cm. Had CHEST CTA 11/22/19: stable fusiform aneurysm (4.3 x 4.0 cm) of the ascending aorta without dissection. Had CT chest 11/27/20: Ectasia of ascending aorta measuring 4.3 cm, stable from 09/03/20. Had 12/02/18 Sleep Study: Findings are consistent with mild, non-positional obstructive sleep apnea (HOLLY). 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 She reports doing well. Reports much less fatigue since change in inhalers per lexii Chiu. Has history of LE swelling, largely resolved. States she has had resolution of dry cough with CXR per PCP.She had 2nd COVID-19 vaccine 08/28/2020. Had cardiac CTA 03/22/21: suboptimal due to lack of contrast (IV could not be obtained), mildly dilated aortic root 4.3 cm, no significant CAD (<25% LAD, LCx, RCA). Had CT chest 11/27/20: Ectasia of ascending aorta measuring 4.3 cm, stable from 09/03/20. Had CHEST CTA 11/22/19: stable fusiform aneurysm (4.3 x 4.0 cm) of the ascending aorta without dissection. For chest pain, she went to [facility] ED and had repeat CTA chest 12/06/19 with stable findings per patient report. Patient was seen at [facility] 11/03/18 for chest pain. For better BP control, metoprolol was started. She monitors her blood pressures daily, ranges 120-133/67-50, HR 56-63. She walks 3x/day for 20 min. each time with decreased dyspnea, no chest pain with walking. She reports decreased fatigue and decreased exertional dyspnea with yardwork. Had 11/04/18 STRESS ECHO: Stress echocardiogram negative for inducible ischemia at 100% MPHR. No exercise induced chest pain. Average functional capacity. Patient was seen again at [facility] 11/11/18 for chest pain. Had [facility] 11/12/18: normal coronaries, normal LV systolic function, dilated aortic root (4.5 cm) with thoracic aneurysm but no AV regurgitation. Had 11/11/18 CTA chest PE protocol: no PE, ectasia of ascending aorta measuring 4.3 cm. Had CHEST CTA 11/22/19: stable fusiform aneurysm (4.3 x 4.0 cm) of the ascending aorta without dissection. Reports home BP < 130/80 most of the time. Patient reports not feeling well sometimes. Patient is active, exercising regularly with walking and gardens.. Has probable left rotator cuff disease, awaiting f/u with PCP. She reports occasional exertional central chest burning since 01/2022. Chest pain reported. Arm pain reported, left, positional. Receiving PT for left shoulder. No neck pain. No nausea and vomiting. No diaphoresis. No shortness of breath at rest. Dyspnea on exertion reported, improved. Fatigue reported.No orthopnea. No PND. Leg swelling reported, intermittent, minimal. Palpitation reported, fluttering for 2-3 sec. only. No dizziness. No syncope . No pre-syncope. No claudication. No major bleeding events. No side effects from medications. Complete ROS negative except as stated in the HPI and ROS. Had EK11/11/2018 Sinus rhythm. Borderline R wave progression, anterior leads. Had 12/02/18 Sleep Study: Findings are consistent with mild, non-positional obstructive sleep apnea (HOLLY). Had cardiac CTA 03/22/21: suboptimal due to lack of contrast (IV could not be obtained), mildly dilated aortic root 4.3 cm, no significant CAD. Had [facility] 11/12/18: normal coronaries, normal LV systolic function, dilated aortic root (4.5 cm) with thoracic aneurysm but no AV regurgitation. Had CHEST CTA 11/22/19: stable fusiform aneurysm (4.3 x 4.0 cm) of the ascending aorta without dissection. Had 11/08/20 LEXISCAN: Adequate Stress with lexiscan. Negative lexiscan stress test for ischemia. Normal LV systolic function Artifact noted. No previous study to compare. LVEF >60%. Had Echo 11/16/2020: LV chamber size is normal. LV wall thickness is normal. The estimated left ventricle ejection fraction is 65-70% (normal). There is mild aortic regurgitation. The mitral valve leaflet is mildly thickened. There is mild tricuspid regurgitation. Mild elevation of estimated RV systolic pressure, 45 mmHg. Irregular. Had ECHO 04/23/20: LV chamber size is normal, LV wall thickness is normal, there is normal global systolic function and contractility, the estimated LVEF is 60-65%(normal), there is increased left atrial pressure and grade II diastolic dysfunction, left atrium chamber is mildly dilated, right atrium chamber is mildly dilated,there is mild aortic valve sclerosis without significant stenosis,there is moderate aortic regurgitation,the mitral valve leaflet is milldy thickened,there is mild mitral regurgitation, there is mild to moderate tricuspid regurgitation, mild elevation of estimated RV systolic pressure, estimated RVSP systolic pressure is 36 mmHg. Results from this visit, or from the past: Had 01/03/22: LIPID: CH 153, HDL 70, TR 58, LDL 70, CMP: GL 82, BUN 21, CR 1.10, EGFR 52, NA 140, CH 4.5, CO2 101, CA 33, MG 2.3, CBC: WBC 7.2, RBC 4.70, HGB 13.1, HCT 40.7, PLT 288 01/08/2021 12:00am CMP: GL 107 BUN 20 NA 143 K 4.4 CA 9.7 ALK 65 AST 20 ALT 16 MAG 2.2CK 77 TSH 1.41 CBC: WBC 7.1 RBC 4.67 HGB 13.0 HCT 40.4 PLT 270CBC W/ DIFF 01/08/2021 12:00am 11/27/20:Cr 1.10 08/20/20:Na 142,K 4.3,Cl 102,Co2 33,Glu 81,Bun 21,Cr 0.:TC 145,TG 77,HDL 65,LDL 64. 04/16/20 BMP: NA 142, K 4.2, CL 103, CO2 32, GLU 74, BUN 16, CR 0. M.210 M.110 CBC: WBC 7.8, HCT 41.4, PLT 74641 CMP: NA 143, K 4.2, CL 104, CO2 32, GLU 95, BUN 20, CR 0.90, AST 20, ALT CBC: WBC 9.2, HGB 13.2, HCT 41.3, PLT 92471 D-DIMER: 0. BMP: NA 140, K 4.1, CL 104, CO2 29, GLU 93, BUN 18, CR 0. PT/INR: PT 12.6, INR 1.005 CMP: NA 142, K 4.7, CL 104, CO2 30, GLU 86, BUN 19, CR 0.90, AST 24, ALT LIPID: TC 151, TR 48, HDL 71, LDL 66creatinine, QN, unspecified duration, urine 11-22-2019 CR 0.80 Had 11/05/19: LDL 66, Cr 0.9, K 4.7, Mg 2.2 lipid panel, blood 12-15-2018 Cholesterol 146,Triglycerides 60,HDL 71,LDL 61 BMP, serum or plasma 11-11-2018 11/11/18: LDL 106, D-dimer 0.97 (high). CT, angiogram, heart, w/wo contrast [id number] aortic root 4.3cm. No significant CAD.CT, angiogram, chest, w/ contrast [id number] chest 11/27/20:Ectasia of ascending aorta measuring 4.3 cm stable from 09/03/20 US, duplex, venous, lower extremity 05-22-2020 05/22/20 CLARE DOP: Negative bilateral venous study. 11/08/20 LEXISCAN Adequate Stress with lexiscan. Negative lexiscan stress test for ischemia. Normal LV systolic function Artifact noted. No previous study to compare. LVEF >60% CT chest 11/27/20:Ectasia of ascending aorta measuring 4.3 cm stable from 09/03/20 11/27/20:Cr 1.10 electrocardiogram [id number] 11/21/20:Sinus rhythmAttachment available 03/21/20 EKG: NSR, Poor R progression in chest leads 11/09/19 EKG: QRS NSR, possible, septal infarct. abnormal ECG05/11/19 EKG: Normal sinus rhythm, within normal limitsEK11/11/2018 Sinus rhythm. Borderline R wave progression, anterior leads. Echo 11/16/2020: LV chamber size is normal. LV wall thickness is normal. The estimated left ventricle ejection fraction is 65-70% (normal). There is mild aortic regurgitation. The mitral valve leaflet is mildly thickened. There is mild tricuspid regurgitation. Mild elevation of estimated RV systolic pressure. Irregular. ECHO 04/23/20:LV chamber size is normal,LV wall thickness is normal,there is normal global systolic function and contractility,the estimated LVEF is 60-65%(normal),there is increased left atrial pressure and grade II diastolic dysfunction,left atrium chamber is mildly dialted,rioght atrium chamber is mildly dialted,there is mild aortic valve sclerosis without significant stenosis,there is moderate aortic regurgitation,the mitral valve leaflet is milldy thickened,there is mild mitral regurgitatoion,there is mild to moderate tricuspid regurgitation,mild elevation of estimated RV systolic pressure,estimated RVSP systolic pressure is [address] 11/22/19: stable fusiform aneurysm of the ascending aorta without dessection. 11/04/18 STRESS ECHO: Stress echocardiogram negative for inducible ischemia at 100% MPHR. No exercise induced chest pain. Average functional capacity. Had [facility] 11/12/18: normal coronaries, normal LV systolic function, dilated aortic root (4.5 cm) with thoracic aneurysm but no AV regurgitation. Had 11/11/18 CTA chest PE protocol: no PE, ectasia of ascending aorta measuring 4.3 cm. Had CHEST CTA 11/22/19: stable fusiform aneurysm (4.3 x 4.0 cm) of the ascending aorta without dissection. Had CT chest 11/27/20: Ectasia of ascending aorta measuring 4.3 cm, stable from 09/03/20. Had 12/02/18 Sleep Study: Findings are consistent with mild, non-positional obstructive sleep apnea (HOLLY). Jose garcia [place] - [facility] 03/26/2022 12:04:08 06/11/2022 text/html 06/11/2022 CC : F/u chest pain 76 year-old woman with h/o dilated aortic root (4.3 cm), thoracic aneurysm, moderate aortic valve regurgitation, mild CAD, polymyalgia rheumatica (2007; sees [facility] rheumatology), temporal arteritis (2007), hypertension, dyslipidemia, HOLLY (on CPAP, Dr. Lerma), asthma, osteoarthritis, is here for follow up chest pain. She reports since early 05/2022 increased exertional dyspnea with chest and head congestion and cough. Congestion improving but exertional dyspnea persists. Dr. Lerma adjusted asthma medication with plan for sleep CPAP titration and PFTs ordered. Reports much less fatigue since change in inhalers per Dr. Lerma, pulm. Has history of LE swelling, largely resolved. States she has had resolution of dry cough with CXR per PCP.She had 2nd COVID-19 vaccine 08/28/2020. Had CT, angiogram, chest + abdomen, w/ contrast CTA CHEST PE protocol 04/24/22: Stable 4.3 cm diameter mid ascending aorta since 11/27/2020. No PE. Had cardiac CTA 03/22/21: suboptimal due to lack of contrast (IV could not be obtained), mildly dilated aortic root 4.3 cm, no significant CAD (<25% LAD, LCx, RCA). Had CT chest 11/27/20: Ectasia of ascending aorta measuring 4.3 cm, stable from 09/03/20. Had CHEST CTA 11/22/19: stable fusiform aneurysm (4.3 x 4.0 cm) of the ascending aorta without dissection. For chest pain, she went to [facility] ED and had repeat CTA chest 12/06/19 with stable findings per patient report. Patient was seen at [facility] 11/03/18 for chest pain. For better BP control, metoprolol was started. She monitors her blood pressures daily, ranges 120-133/67-50, HR 56-63. She walks 3x/day for 20 min. each time with decreased dyspnea, no chest pain with walking. She reports decreased fatigue and decreased exertional dyspnea with yardwork. Had 11/04/18 STRESS ECHO: Stress echocardiogram negative for inducible ischemia at 100% MPHR. No exercise induced chest pain. Average functional capacity. Patient was seen again at [facility] 11/11/18 for chest pain. Had LHC 11/12/18: normal coronaries, normal LV systolic function, dilated aortic root (4.5 cm) with thoracic aneurysm but no AV regurgitation. Had 11/11/18 CTA chest PE protocol: no PE, ectasia of ascending aorta measuring 4.3 cm. Had CHEST CTA 11/22/19: stable fusiform aneurysm (4.3 x 4.0 cm) of the ascending aorta without dissection. Reports home BP < 130/80 most of the time. Patient reports not feeling well sometimes. Patient is active, exercising regularly with walking and gardens.. Has probable left rotator cuff disease, awaiting f/u with PCP. She reports occasional exertional central chest burning since 01/2022. No chest pain. Arm pain reported, left, positional. Receiving PT for left shoulder. No neck pain. No nausea and vomiting. No diaphoresis. No shortness of breath at rest. Dyspnea on exertion reported. Fatigue reported.No orthopnea. No PND. Leg swelling reported, intermittent, minimal. Palpitation reported, fluttering for 2-3 sec. only. No dizziness. No syncope . No pre-syncope. No claudication. No major bleeding events. No side effects from medications. Complete ROS negative except as stated in the HPI and ROS. 04/16/22 LV chamber size is normal. There is normal global systolic function and contractility. The estimated left ventricle ejection fraction is 55-60% (normal). Had EK11/11/2018 Sinus rhythm. Borderline R wave progression, anterior leads. Had 12/02/18 Sleep Study: Findings are consistent with mild, non-positional obstructive sleep apnea (HOLLY). Had CT, angiogram, chest + abdomen, w/ contrast CTA CHEST PE protocol 04/24/22: Stable 4.3 cm diameter mid ascending aorta since 11/27/2020. No PE. Had cardiac CTA 03/22/21: suboptimal due to lack of contrast (IV could not be obtained), mildly dilated aortic root 4.3 cm, no significant CAD. Had [facility] 11/12/18: normal coronaries, normal LV systolic function, dilated aortic root (4.5 cm) with thoracic aneurysm but no AV regurgitation. Had CHEST CTA 11/22/19: stable fusiform aneurysm (4.3 x 4.0 cm) of the ascending aorta without dissection. Had 11/08/20 LEXISCAN: Adequate Stress with lexiscan. Negative lexiscan stress test for ischemia. Normal LV systolic function Artifact noted. No previous study to compare. LVEF >60%. Had 04/16/22 US, echocardiogram : LV chamber size is normal. There is normal global systolic function and contractility. The estimated left ventricle ejection fraction is 55-60% (normal). Mild AI. Normal RVSP 32 mmHg. Had Echo 11/16/2020: LV chamber size is normal. LV wall thickness is normal. The estimated left ventricle ejection fraction is 65-70% (normal). There is mild aortic regurgitation. The mitral valve leaflet is mildly thickened. There is mild tricuspid regurgitation. Mild elevation of estimated RV systolic pressure, 45 mmHg. Irregular. Had ECHO 04/23/20: LV chamber size is normal, LV wall thickness is normal, there is normal global systolic function and contractility, the estimated LVEF is 60-65%(normal), there is increased left atrial pressure and grade II diastolic dysfunction, left atrium chamber is mildly dilated, right atrium chamber is mildly dilated,there is mild aortic valve sclerosis without significant stenosis,there is moderate aortic regurgitation,the mitral valve leaflet is milldy thickened,there is mild mitral regurgitation, there is mild to moderate tricuspid regurgitation, mild elevation of estimated RV systolic pressure, estimated RVSP systolic pressure is 36 mmHg. Results from this visit, or from the past: Had 05/15/22: BUN 33, Cr 1.49, K 4.4, AST 36, ALT 39, hgb 13.6 Had 01/03/22: LIPID: CH 153, HDL 70, TR 58, LDL 70, CMP: GL 82, BUN 21, CR 1.10, EGFR 52, NA 140, CH 4.5, CO2 101, CA 33, MG 2.3, CBC: WBC 7.2, RBC 4.70, HGB 13.1, HCT 40.7, PLT 288 01/08/2021 12:00am CMP: GL 107 BUN 20 NA 143 K 4.4 CA 9.7 ALK 65 AST 20 ALT 16 MAG 2.2CK 77 TSH 1.41 CBC: WBC 7.1 RBC 4.67 HGB 13.0 HCT 40.4 PLT 270CBC W/ DIFF 01/08/2021 12:00am 11/27/20:Cr 1.10 08/20/20:Na 142,K 4.3,Cl 102,Co2 33,Glu 81,Bun 21,Cr 0.:TC 145,TG 77,HDL 65,LDL 64. 04/16/20 BMP: NA 142, K 4.2, CL 103, CO2 32, GLU 74, BUN 16, CR 0. M.210 M.110 CBC: WBC 7.8, HCT 41.4, PLT 79385 CMP: NA 143, K 4.2, CL 104, CO2 32, GLU 95, BUN 20, CR 0.90, AST 20, ALT CBC: WBC 9.2, HGB 13.2, HCT 41.3, PLT 94207 D-DIMER: 0. BMP: NA 140, K 4.1, CL 104, CO2 29, GLU 93, BUN 18, CR 0. PT/INR: PT 12.6, INR 1.005 CMP: NA 142, K 4.7, CL 104, CO2 30, GLU 86, BUN 19, CR 0.90, AST 24, ALT LIPID: TC 151, TR 48, HDL 71, LDL 66creatinine, QN, unspecified duration, urine 11-22-2019 CR 0.80 Had 11/05/19: LDL 66, Cr 0.9, K 4.7, Mg 2.2 lipid panel, blood 12-15-2018 Cholesterol 146,Triglycerides 60,HDL 71,LDL 61 BMP, serum or plasma 11-11-2018 11/11/18: LDL 106, D-dimer 0.97 (high). CT, angiogram, heart, w/wo contrast [id number] aortic root 4.3cm. No significant CAD.CT, angiogram, chest, w/ contrast [id number] chest 11/27/20:Ectasia of ascending aorta measuring 4.3 cm stable from 09/03/20 US, duplex, venous, lower extremity 05-22-2020 05/22/20 CLARE DOP: Negative bilateral venous study. 11/08/20 LEXISCAN Adequate Stress with lexiscan. Negative lexiscan stress test for ischemia. Normal LV systolic function Artifact noted. No previous study to compare. LVEF >60% CT chest 11/27/20:Ectasia of ascending aorta measuring 4.3 cm stable from 09/03/20 11/27/20:Cr 1.10 electrocardiogram [id number] 11/21/20:Sinus rhythmAttachment available 03/21/20 EKG: NSR, Poor R progression in chest leads 11/09/19 EKG: QRS NSR, possible, septal infarct. abnormal ECG05/11/19 EKG: Normal sinus rhythm, within normal limitsEK11/11/2018 Sinus rhythm. Borderline R wave progression, anterior leads. Echo 11/16/2020: LV chamber size is normal. LV wall thickness is normal. The estimated left ventricle ejection fraction is 65-70% (normal). There is mild aortic regurgitation. The mitral valve leaflet is mildly thickened. There is mild tricuspid regurgitation. Mild elevation of estimated RV systolic pressure. Irregular. ECHO 04/23/20:LV chamber size is normal,LV wall thickness is normal,there is normal global systolic function and contractility,the estimated LVEF is 60-65%(normal),there is increased left atrial pressure and grade II diastolic dysfunction,left atrium chamber is mildly dialted,rioght atrium chamber is mildly dialted,there is mild aortic valve sclerosis without significant stenosis,there is moderate aortic regurgitation,the mitral valve leaflet is milldy thickened,there is mild mitral regurgitatoion,there is mild to moderate tricuspid regurgitation,mild elevation of estimated RV systolic pressure,estimated RVSP systolic pressure is [address] 11/22/19: stable fusiform aneurysm of the ascending aorta without dessection. 11/04/18 STRESS ECHO: Stress echocardiogram negative for inducible ischemia at 100% MPHR. No exercise induced chest pain. Average functional capacity. Had [facility] 11/12/18: normal coronaries, normal LV systolic function, dilated aortic root (4.5 cm) with thoracic aneurysm but no AV regurgitation. Had 11/11/18 CTA chest PE protocol: no PE, ectasia of ascending aorta measuring 4.3 cm. Had CHEST CTA 11/22/19: stable fusiform aneurysm (4.3 x 4.0 cm) of the ascending aorta without dissection. Had CT chest 11/27/20: Ectasia of ascending aorta measuring 4.3 cm, stable from 09/03/20. Had 12/02/18 Sleep Study: Findings are consistent with mild, non-positional obstructive sleep apnea (HOLLY). 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 Lerma), asthma, COPD, osteoarthritis, is here for follow up chest pain. She reports since early 05/2022 increased exertional dyspnea with chest and head congestion and cough. Congestion improving and exertional dyspnea has improved. Dr. Lerma adjusted asthma medication and she had sleep CPAP titration with increase in pressure support 07/2022 and PFTs with mild COPD per patient report. Reports much less fatigue since change in inhalers per Dr. Lerma, pulm. Has history of LE swelling, largely resolved. States she has had resolution of dry cough with CXR per PCP.She had 2nd COVID-19 vaccine 08/28/2020. Had CT, angiogram, chest + abdomen, w/ contrast CTA CHEST PE protocol 04/24/22: Stable 4.3 cm diameter mid ascending aorta since 11/27/2020. No PE. Had cardiac CTA 03/22/21: suboptimal due to lack of contrast (IV could not be obtained), mildly dilated aortic root 4.3 cm, no significant CAD (<25% LAD, LCx, RCA). Had CT chest 11/27/20: Ectasia of ascending aorta measuring 4.3 cm, stable from 09/03/20. Had CHEST CTA 11/22/19: stable fusiform aneurysm (4.3 x 4.0 cm) of the ascending aorta without dissection. For chest pain, she went to [facility] ED and had repeat CTA chest 12/06/19 with stable findings per patient report. Patient was seen at [facility] 11/03/18 for chest pain. For better BP control, metoprolol was started. She monitors her blood pressures daily, ranges 120-133/67-50, HR 56-63. She walks 3x/day for 20 min. each time with decreased dyspnea, no chest pain with walking. She reports decreased fatigue and decreased exertional dyspnea with yardwork. Had 11/04/18 STRESS ECHO: Stress echocardiogram negative for inducible ischemia at 100% MPHR. No exercise induced chest pain. Average functional capacity. Patient was seen again at [facility] 11/11/18 for chest pain. Had [facility] 11/12/18: normal coronaries, normal LV systolic function, dilated aortic root (4.5 cm) with thoracic aneurysm but no AV regurgitation. Had 11/11/18 CTA chest PE protocol: no PE, ectasia of ascending aorta measuring 4.3 cm. Had CHEST CTA 11/22/19: stable fusiform aneurysm (4.3 x 4.0 cm) of the ascending aorta without dissection. Reports home BP < 130/80 most of the time. Patient reports not feeling well sometimes. Patient is active, exercising regularly with walking and gardens.. Has probable left rotator cuff disease, awaiting f/u with PCP. She reports occasional exertional central chest burning since 01/2022. No chest pain. Arm pain reported, left, positional. Receiving PT for left shoulder. No neck pain. No nausea and vomiting. No diaphoresis. No shortness of breath at rest. Dyspnea on exertion reported, improved. Fatigue reported.No orthopnea. No PND. Leg swelling reported, intermittent, minimal. Palpitation reported, fluttering for 2-3 sec. only. No dizziness. No syncope . No pre-syncope. No claudication. No major bleeding events. No side effects from medications. Complete ROS negative except as stated in the HPI and ROS. Had EK11/11/2018 Sinus rhythm. Borderline R wave progression, anterior leads. Had 12/02/18 Sleep Study: Findings are consistent with mild, non-positional obstructive sleep apnea (HOLLY). Had CT, angiogram, chest + abdomen, w/ contrast CTA CHEST PE protocol 04/24/22: Stable 4.3 cm diameter mid ascending aorta since 11/27/2020. No PE. Had cardiac CTA 03/22/21: suboptimal due to lack of contrast (IV could not be obtained), mildly dilated aortic root 4.3 cm, no significant CAD. Had [facility] 11/12/18: normal coronaries, normal LV systolic function, dilated aortic root (4.5 cm) with thoracic aneurysm but no AV regurgitation. Had CHEST CTA 11/22/19: stable fusiform aneurysm (4.3 x 4.0 cm) of the ascending aorta without dissection. Had 11/08/20 LEXISCAN: Adequate Stress with lexiscan. Negative lexiscan stress test for ischemia. Normal LV systolic function Artifact noted. No previous study to compare. LVEF >60%. Had 04/16/22 US, echocardiogram : LV chamber size is normal. There is normal global systolic function and contractility. The estimated left ventricle ejection fraction is 55-60% (normal). Mild AI. Normal RVSP 32 mmHg. Had Echo 11/16/2020: LV chamber size is normal. LV wall thickness is normal. The estimated left ventricle ejection fraction is 65-70% (normal). There is mild aortic regurgitation. The mitral valve leaflet is mildly thickened. There is mild tricuspid regurgitation. Mild elevation of estimated RV systolic pressure, 45 mmHg. Irregular. Had ECHO 04/23/20: LV chamber size is normal, LV wall thickness is normal, there is normal global systolic function and contractility, the estimated LVEF is 60-65%(normal), there is increased left atrial pressure and grade II diastolic dysfunction, left atrium chamber is mildly dilated, right atrium chamber is mildly dilated,there is mild aortic valve sclerosis without significant stenosis,there is moderate aortic regurgitation,the mitral valve leaflet is milldy thickened,there is mild mitral regurgitation, there is mild to moderate tricuspid regurgitation, mild elevation of estimated RV systolic pressure, estimated RVSP systolic pressure is 36 mmHg. Results from this visit, or from the past: Had 07/21/22: LDL 68, Cr 0.98, K 4.2, Mg 2.1, Had 05/15/22: BUN 33, Cr 1.49, K 4.4, AST 36, ALT 39, hgb 13.6 Had 01/03/22: LIPID: CH 153, HDL 70, TR 58, LDL 70, CMP: GL 82, BUN 21, CR 1.10, EGFR 52, NA 140, CH 4.5, CO2 101, CA 33, MG 2.3, CBC: WBC 7.2, RBC 4.70, HGB 13.1, HCT 40.7, PLT 288 01/08/2021 12:00am CMP: GL 107 BUN 20 NA 143 K 4.4 CA 9.7 ALK 65 AST 20 ALT 16 MAG 2.2CK 77 TSH 1.41 CBC: WBC 7.1 RBC 4.67 HGB 13.0 HCT 40.4 PLT 270CBC W/ DIFF 01/08/2021 12:00am 11/27/20:Cr 1.10 08/20/20:Na 142,K 4.3,Cl 102,Co2 33,Glu 81,Bun 21,Cr 0.:TC 145,TG 77,HDL 65,LDL 64. 04/16/20 BMP: NA 142, K 4.2, CL 103, CO2 32, GLU 74, BUN 16, CR 0. M.210 M.110 CBC: WBC 7.8, HCT 41.4, PLT 80344 CMP: NA 143, K 4.2, CL 104, CO2 32, GLU 95, BUN 20, CR 0.90, AST 20, ALT CBC: WBC 9.2, HGB 13.2, HCT 41.3, PLT 08461 D-DIMER: 0. BMP: NA 140, K 4.1, CL 104, CO2 29, GLU 93, BUN 18, CR 0. PT/INR: PT 12.6, INR 1.005 CMP: NA 142, K 4.7, CL 104, CO2 30, GLU 86, BUN 19, CR 0.90, AST 24, ALT LIPID: TC 151, TR 48, HDL 71, LDL 66creatinine, QN, unspecified duration, urine 11-22-2019 CR 0.80 Had 11/05/19: LDL 66, Cr 0.9, K 4.7, Mg 2.2 lipid panel, blood 12-15-2018 Cholesterol 146,Triglycerides 60,HDL 71,LDL 61 BMP, serum or plasma 11-11-2018 11/11/18: LDL 106, D-dimer 0.97 (high). CT, angiogram, heart, w/wo contrast [id number] aortic root 4.3cm. No significant CAD.CT, angiogram, chest, w/ contrast [id number] chest 11/27/20:Ectasia of ascending aorta measuring 4.3 cm stable from 09/03/20 US, duplex, venous, lower extremity 05-22-2020 05/22/20 CLARE DOP: Negative bilateral venous study. 11/08/20 LEXISCAN Adequate Stress with lexiscan. Negative lexiscan stress test for ischemia. Normal LV systolic function Artifact noted. No previous study to compare. LVEF >60% CT chest 11/27/20:Ectasia of ascending aorta measuring 4.3 cm stable from 09/03/20 11/27/20:Cr 1.10 electrocardiogram [id number] 11/21/20:Sinus rhythmAttachment available 03/21/20 EKG: NSR, Poor R progression in chest leads 11/09/19 EKG: QRS NSR, possible, septal infarct. abnormal ECG05/11/19 EKG: Normal sinus rhythm, within normal limitsEK11/11/2018 Sinus rhythm. Borderline R wave progression, anterior leads. Echo 11/16/2020: LV chamber size is normal. LV wall thickness is normal. The estimated left ventricle ejection fraction is 65-70% (normal). There is mild aortic regurgitation. The mitral valve leaflet is mildly thickened. There is mild tricuspid regurgitation. Mild elevation of estimated RV systolic pressure. Irregular. ECHO 04/23/20:LV chamber size is normal,LV wall thickness is normal,there is normal global systolic function and contractility,the estimated LVEF is 60-65%(normal),there is increased left atrial pressure and grade II diastolic dysfunction,left atrium chamber is mildly dialted,rioght atrium chamber is mildly dialted,there is mild aortic valve sclerosis without significant stenosis,there is moderate aortic regurgitation,the mitral valve leaflet is milldy thickened,there is mild mitral regurgitatoion,there is mild to moderate tricuspid regurgitation,mild elevation of estimated RV systolic pressure,estimated RVSP systolic pressure is [address] 11/22/19: stable fusiform aneurysm of the ascending aorta without dessection. 11/04/18 STRESS ECHO: Stress echocardiogram negative for inducible ischemia at 100% MPHR. No exercise induced chest pain. Average functional capacity. Had [facility] 11/12/18: normal coronaries, normal LV systolic function, dilated aortic root (4.5 cm) with thoracic aneurysm but no AV regurgitation. Had 11/11/18 CTA chest PE protocol: no PE, ectasia of ascending aorta measuring 4.3 cm. Had CHEST CTA 11/22/19: stable fusiform aneurysm (4.3 x 4.0 cm) of the ascending aorta without dissection. Had CT chest 11/27/20: Ectasia of ascending aorta measuring 4.3 cm, stable from 09/03/20. Had 12/02/18 Sleep Study: Findings are consistent with mild, non-positional obstructive sleep apnea (HOLLY). 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 Lerma), asthma, COPD, osteoarthritis, is here for follow up chest pain. She reports since early 05/2022 increased exertional dyspnea with chest and head congestion and cough. Congestion improving and exertional dyspnea has improved. Dr. Lerma adjusted asthma medication and she had sleep CPAP titration with increase in pressure support 07/2022 and PFTs with mild COPD per patient report. Reports much less fatigue since change in inhalers per Dr. Lerma, pulm. Has history of LE swelling, largely resolved. States she has had resolution of dry cough with CXR per PCP.She had 2nd COVID-19 vaccine 08/28/2020. Had CT, angiogram, chest + abdomen, w/ contrast CTA CHEST PE protocol 04/24/22: Stable 4.3 cm diameter mid ascending aorta since 11/27/2020. No PE. Had cardiac CTA 03/22/21: suboptimal due to lack of contrast (IV could not be obtained), mildly dilated aortic root 4.3 cm, no significant CAD (<25% LAD, LCx, RCA). Had CT chest 11/27/20: Ectasia of ascending aorta measuring 4.3 cm, stable from 09/03/20. Had CHEST CTA 11/22/19: stable fusiform aneurysm (4.3 x 4.0 cm) of the ascending aorta without dissection. For chest pain, she went to [facility] ED and had repeat CTA chest 12/06/19 with stable findings per patient report. Patient was seen at [facility] 11/03/18 for chest pain. For better BP control, metoprolol was started. She monitors her blood pressures daily, ranges 120-133/67-50, HR 56-63. She walks 3x/day for 20 min. each time with decreased dyspnea, no chest pain with walking. She reports decreased fatigue and decreased exertional dyspnea with yardwork. Had 11/04/18 STRESS ECHO: Stress echocardiogram negative for inducible ischemia at 100% MPHR. No exercise induced chest pain. Average functional capacity. Patient was seen again at [facility] 11/11/18 for chest pain. Had [facility] 11/12/18: normal coronaries, normal LV systolic function, dilated aortic root (4.5 cm) with thoracic aneurysm but no AV regurgitation. Had 11/11/18 CTA chest PE protocol: no PE, ectasia of ascending aorta measuring 4.3 cm. Had CHEST CTA 11/22/19: stable fusiform aneurysm (4.3 x 4.0 cm) of the ascending aorta without dissection. Reports home BP < 130/80 most of the time. Patient reports not feeling well sometimes. Patient is active, exercising regularly with walking and gardens.. Has probable left rotator cuff disease, awaiting f/u with PCP. She reports occasional exertional central chest burning since 01/2022. No chest pain. Arm pain reported, left, positional. Receiving PT for left shoulder. No neck pain. No nausea and vomiting. No diaphoresis. No shortness of breath at rest. Dyspnea on exertion reported, improved. Fatigue reported.No orthopnea. No PND. Leg swelling reported, intermittent, minimal. Palpitation reported, fluttering for 2-3 sec. only. No dizziness. No syncope . No pre-syncope. No claudication. No major bleeding events. No side effects from medications. Complete ROS negative except as stated in the HPI and ROS. Had EK11/11/2018 Sinus rhythm. Borderline R wave progression, anterior leads. Had 12/02/18 Sleep Study: Findings are consistent with mild, non-positional obstructive sleep apnea (HOLLY). Had CT, angiogram, chest + abdomen, w/ contrast CTA CHEST PE protocol 04/24/22: Stable 4.3 cm diameter mid ascending aorta since 11/27/2020. No PE. Had cardiac CTA 03/22/21: suboptimal due to lack of contrast (IV could not be obtained), mildly dilated aortic root 4.3 cm, no significant CAD. Had [facility] 11/12/18: normal coronaries, normal LV systolic function, dilated aortic root (4.5 cm) with thoracic aneurysm but no AV regurgitation. Had CHEST CTA 11/22/19: stable fusiform aneurysm (4.3 x 4.0 cm) of the ascending aorta without dissection. Had 11/08/20 LEXISCAN: Adequate Stress with lexiscan. Negative lexiscan stress test for ischemia. Normal LV systolic function Artifact noted. No previous study to compare. LVEF >60%. Had 04/16/22 US, echocardiogram : LV chamber size is normal. There is normal global systolic function and contractility. The estimated left ventricle ejection fraction is 55-60% (normal). Mild AI. Normal RVSP 32 mmHg. Had Echo 11/16/2020: LV chamber size is normal. LV wall thickness is normal. The estimated left ventricle ejection fraction is 65-70% (normal). There is mild aortic regurgitation. The mitral valve leaflet is mildly thickened. There is mild tricuspid regurgitation. Mild elevation of estimated RV systolic pressure, 45 mmHg. Irregular. Had ECHO 04/23/20: LV chamber size is normal, LV wall thickness is normal, there is normal global systolic function and contractility, the estimated LVEF is 60-65%(normal), there is increased left atrial pressure and grade II diastolic dysfunction, left atrium chamber is mildly dilated, right atrium chamber is mildly dilated,there is mild aortic valve sclerosis without significant stenosis,there is moderate aortic regurgitation,the mitral valve leaflet is milldy thickened,there is mild mitral regurgitation, there is mild to moderate tricuspid regurgitation, mild elevation of estimated RV systolic pressure, estimated RVSP systolic pressure is 36 mmHg. Results from this visit, or from the past: Had 07/21/22: LDL 68, Cr 0.98, K 4.2, Mg 2.1, Had 05/15/22: BUN 33, Cr 1.49, K 4.4, AST 36, ALT 39, hgb 13.6 Had 01/03/22: LIPID: CH 153, HDL 70, TR 58, LDL 70, CMP: GL 82, BUN 21, CR 1.10, EGFR 52, NA 140, CH 4.5, CO2 101, CA 33, MG 2.3, CBC: WBC 7.2, RBC 4.70, HGB 13.1, HCT 40.7, PLT 288 01/08/2021 12:00am CMP: GL 107 BUN 20 NA 143 K 4.4 CA 9.7 ALK 65 AST 20 ALT 16 MAG 2.2CK 77 TSH 1.41 CBC: WBC 7.1 RBC 4.67 HGB 13.0 HCT 40.4 PLT 270CBC W/ DIFF 01/08/2021 12:00am 11/27/20:Cr 1.10 08/20/20:Na 142,K 4.3,Cl 102,Co2 33,Glu 81,Bun 21,Cr 0.:TC 145,TG 77,HDL 65,LDL 64. 04/16/20 BMP: NA 142, K 4.2, CL 103, CO2 32, GLU 74, BUN 16, CR 0. M.210 M.110 CBC: WBC 7.8, HCT 41.4, PLT 80802 CMP: NA 143, K 4.2, CL 104, CO2 32, GLU 95, BUN 20, CR 0.90, AST 20, ALT CBC: WBC 9.2, HGB 13.2, HCT 41.3, PLT 34986 D-DIMER: 0. BMP: NA 140, K 4.1, CL 104, CO2 29, GLU 93, BUN 18, CR 0. PT/INR: PT 12.6, INR 1.005 CMP: NA 142, K 4.7, CL 104, CO2 30, GLU 86, BUN 19, CR 0.90, AST 24, ALT LIPID: TC 151, TR 48, HDL 71, LDL 66creatinine, QN, unspecified duration, urine 11-22-2019 CR 0.80 Had 11/05/19: LDL 66, Cr 0.9, K 4.7, Mg 2.2 lipid panel, blood 12-15-2018 Cholesterol 146,Triglycerides 60,HDL 71,LDL 61 BMP, serum or plasma 11-11-2018 11/11/18: LDL 106, D-dimer 0.97 (high). CT, angiogram, heart, w/wo contrast [id number] aortic root 4.3cm. No significant CAD.CT, angiogram, chest, w/ contrast [id number] chest 11/27/20:Ectasia of ascending aorta measuring 4.3 cm stable from 09/03/20 US, duplex, venous, lower extremity 05-22-2020 05/22/20 CLARE DOP: Negative bilateral venous study. 11/08/20 LEXISCAN Adequate Stress with lexiscan. Negative lexiscan stress test for ischemia. Normal LV systolic function Artifact noted. No previous study to compare. LVEF >60% CT chest 11/27/20:Ectasia of ascending aorta measuring 4.3 cm stable from 09/03/20 11/27/20:Cr 1.10 electrocardiogram [id number] 11/21/20:Sinus rhythmAttachment available 03/21/20 EKG: NSR, Poor R progression in chest leads 11/09/19 EKG: QRS NSR, possible, septal infarct. abnormal ECG05/11/19 EKG: Normal sinus rhythm, within normal limitsEK11/11/2018 Sinus rhythm. Borderline R wave progression, anterior leads. Echo 11/16/2020: LV chamber size is normal. LV wall thickness is normal. The estimated left ventricle ejection fraction is 65-70% (normal). There is mild aortic regurgitation. The mitral valve leaflet is mildly thickened. There is mild tricuspid regurgitation. Mild elevation of estimated RV systolic pressure. Irregular. ECHO 04/23/20:LV chamber size is normal,LV wall thickness is normal,there is normal global systolic function and contractility,the estimated LVEF is 60-65%(normal),there is increased left atrial pressure and grade II diastolic dysfunction,left atrium chamber is mildly dialted,rioght atrium chamber is mildly dialted,there is mild aortic valve sclerosis without significant stenosis,there is moderate aortic regurgitation,the mitral valve leaflet is milldy thickened,there is mild mitral regurgitatoion,there is mild to moderate tricuspid regurgitation,mild elevation of estimated RV systolic pressure,estimated RVSP systolic pressure is [address] 11/22/19: stable fusiform aneurysm of the ascending aorta without dessection. 11/04/18 STRESS ECHO: Stress echocardiogram negative for inducible ischemia at 100% MPHR. No exercise induced chest pain. Average functional capacity. Had [facility] 11/12/18: normal coronaries, normal LV systolic function, dilated aortic root (4.5 cm) with thoracic aneurysm but no AV regurgitation. Had 11/11/18 CTA chest PE protocol: no PE, ectasia of ascending aorta measuring 4.3 cm. Had CHEST CTA 11/22/19: stable fusiform aneurysm (4.3 x 4.0 cm) of the ascending aorta without dissection. Had CT chest 11/27/20: Ectasia of ascending aorta measuring 4.3 cm, stable from 09/03/20. Had 12/02/18 Sleep Study: Findings are consistent with mild, non-positional obstructive sleep apnea (HOLLY). Jose Arthur [facility], [place] - [facility] 10/29/2022 12:06:02 OBGyn Episode No OBEpisode recorded.
--- NOTE | 2025-03-07 07:09 | WPDHPUPDATE1 ---
History and Physical Update Update Date/Time: 03/07/25 07:09 History and Physical has been reviewed, including an updated exam of the patient. There are NO changes in the patient's condition. Risks, benefits, and alternatives have been discussed and questions answered. Patient agrees to proceed with procedure.
[2025-03-07] MEDS: ACETAMINOPHEN 500 MG TABLET 1000 MG PO (08:47)
[2025-03-07] MEDS: LACTATED RINGERS 1,000 ML 30 ML IV CONT ×2 (08:53→12:34)
[2025-03-07] MEDS: TRANEXAMIC ACID 1,000MG/ISO100 1,000 MG/100 ML BAG 200 MG IVPB (08:54)
--- NOTE | 2025-03-07 09:31 | WPDANESEPPF ---
Anes - Initial Pre Proc Eval Procedure: Operation Date: 03/07/25 10:30 Proposed Procedures p Left Total Knee Arthroplasty - Frankie Ordaz MD Date/Time: 03/07/25 09:31 Surgeon: Frankie Ordaz MD Pre Op Diagnosis: primary OA left knee Patient Data Age: 79 Gender: F Height: 1.68 m Weight: 77.4 kg Last Vital Signs Temp 36.3 C L 03/07/25 08:35 Pulse 67 03/07/25 08:35 Resp 20 03/07/25 08:35 BP 144/45 H 03/07/25 08:35 Pulse Ox 100 03/07/25 08:35 O2 Del Method Room Air 03/07/25 08:35 Allergies Allergy/AdvReac Type Severity Reaction Status Date / Time No Known Allergies Allergy Verified 03/07/25 09:17 Home Medications ?Medication ?Instructions ?Recorded ?Confirmed ?Type amlodipine 10 mg-benazepril 20 mg 1 cap PO DAILY 12/06/19 03/07/25 History capsule atorvastatin 40 mg tablet 40 mg PO DAILY 12/06/19 03/07/25 History metoprolol succinate 200 mg 200 mg PO DAILY 12/06/19 03/07/25 History tablet,extended release 24 hr budesonide 160 mcg-glycopyr 9 2 inh inhalation BID 08/26/21 02/17/25 History mcg-formot 4.8 mcg/actuation HFA inhaler (Breztri Aerosphere) hydralazine 25 mg tablet 25 mg PO TID 08/26/21 03/07/25 History aspirin 81 mg tablet,delayed 81 mg PO DAILY 09/27/21 03/07/25 History release (Adult Aspirin Regimen) solriamfetol 75 mg tablet (Sunosi) 150 mg PO DAILY 10/09/22 03/07/25 History mometasone 50 mcg/actuation nasal 2 spray intranasal DAILY 12/18/22 02/17/25 History spray albuterol sulfate 90 mcg/actuation 1 inh inhalation Q4H PRN shortness 01/15/24 02/17/25 History aerosol inhaler of breath or wheezing acetaminophen 500 mg tablet 1,000 mg PO Q6H PRN pain 02/17/25 02/17/25 History (Acetaminophen Extra Strength) Held on 03/07/25. Instructions: Resume on 03/14/25. Oxycodone has Tylenol in it. Do not take more than 4,000 mg in 24 hours. multivitamin (Daily Multi-Vitamin 1 tablet PO DAILY 02/17/25 02/17/25 History tablet) aspirin 81 mg tablet,delayed 81 mg PO BID 14 days #28 tabs 03/07/25 Rx release meloxicam 15 mg tablet 15 mg PO DAILY #30 tabs 03/07/25 Rx oxycodone-acetaminophen 5 mg-325 1 - 2 tablet PO Q4-6H PRN pain 7 03/07/25 Rx mg tablet days #30 tabs prednisone 5 mg tablet 5 mg PO DAILY 3 weeks #21 tabs 03/07/25 Rx Laboratory Tests 03/07/25 08:57 Blood Type A Positive Antibody Screen Pending Patient hx anesthesia problems: none Family hx anesthesia problems: none Results Review: All pre-operative results and documents have been reviewed as part of the pre-operative evaluation. [facility] Past Medical History Medical History Chronic headache Aortic atherosclerosis (2021) CXR 07/2020 Moderate aortic valve regurgitation Diastolic dysfunction 04/2020 Thoracic aortic aneurysm Obstructive sleep apnea Temporal arteritis 12/2017 Polymyalgia rheumatica Pure hypercholesterolemia, unspecified Family History Family History Sibling Breast cancer Family history of arthritis Sibling Breast cancer Mother Cerebrovascular accident Family history of arthritis Heart disease Father Hypertension Social History Social History Smoking status: Never smoker Second hand tobacco smoke exposure: No Alcohol intake: never Substance use: never Substance use type: does not use Do You Feel Safe in your Home?: Yes Lack of Transportation: No Lack of Food: Never True Current Housing: I Have Housing Concerned About Future Housing: No Difficulty Paying Gas/Electric Bills: No Difficulty Paying for Meds: No Currently Unemployed: No Education: Bachelor's Degree Difficulty w/ Childcare or Family Care: No Living arrangements: alone Occupation/Education: retired Gender identity (if verbalized by the patient): Female Sexual Orientation (if Verbalized by the Patient): Straight or Heterosexual Spiritual care concerns: No Agree to blood products: Yes Anes - Eval Final PreProcedure Day of Procedure 03/07/25 09:31 Patient weight: overweight Heart: regular rate and rhythm Lungs: clear to auscultation Airway: Mallampati scale class II Neurological: alert and oriented Last oral intake: >/= 8 hours ASA classification: III Emergent: no Anesthetic plan: proceed Anesthesia type and monitoring: general LMA and standard monitoring Results Review: All pre-operative results and documents have been reviewed as part of the pre-operative evaluation. Informed Consent: The patient's anesthetic plan and its attendant risks and benefits were discussed with the patient/family/POA. Questions were solicited and answers provided to the satisfaction of the patient/family/POA.
[2025-03-07] MEDS: ceFAZolin 2 GM in SODIUM CHLORIDE 0.9% IV 50 ML 100 ML IVPB ×2 (10:19→17:55)
[2025-03-07] MEDS: SODIUM CHLORIDE 0.9% IV 37.7 ML, MORPHINE SULFATE INJ (*CRX) 2 MG, ROPivacaine HCL 1% 2... INFILTRATE (10:46)
[2025-03-07] MEDS: fentaNYL CITRATE INJ (*CRX) 100 MCG/2 ML VIAL 25 MCG IV PUSH ×8 (12:45→13:20)
[2025-03-07] MEDS: HYDROmorphone HCL INJ (*CRX) 1 MG/ML SYR 0.25 MG IV PUSH ×4 (13:28→13:56)
--- NOTE | 2025-03-07 14:00 | SUR.PHASEI ---
Patient meets PACU discharge criteria, unit bed unavailable at this time. Patient placed in extended recovery status.
--- NOTE | 2025-03-07 14:04 | W.PM.PROC2 ---
Procedure Note - Detailed Date of Procedure 03/07/25 Pre-op Diagnosis primary OA left knee Post-op Diagnosis Same Procedure Performed Calipered, kinematically aligned total knee replacement left knee. Surgeon Frankie Ordaz MD [employer]ise Sales Manager Noelle Quintero PA-C Anesthesia General Findings According to the calipered kinematic alignment principles, the knee was balanced by the following verification checks incorporating 6 caliper measurements, using an insert goniometer to select the insert thickness, and adjusting the tibial resection following the kinematic alignment algorithm (see figure 160.10 published in [employer] chapter on kinematic alignment total knee arthroplasty.) The steps verified the femoral and tibial components were kinematically aligned coincident to the patient's pre arthritic joint lines, which closely restored the nome tibial compartment forces and ligament laxities without ligament release. The [employer] Sper[employer]KA knee, designed specifically for kinematic alignment, fit optimally. Moderate valgus disease with posterolateral wear. Preoperative constitutional laxity. The record of verification checks were documented and scanned into the chart. Distal Femoral Resection: Distal lateral 6 mm(cartilage worn), Distal medial 8.5 mm Target thickness of 8mm Unworn, 6mm Worn (No Cartilage). Posterior Femoral Resection: Posterior lateral 5 mm(cartilage worn), Posterior medial 7 mm. Target thickness of 7mm Unworn, 5mm Worn (No Cartilage). Description of Procedure General anesthesia was administered. A well-padded tourniquet was placed high on the thigh. The limb was prepped and draped in the usual sterile fashion. The limb was exsanguinated and the tourniquet inflated to 300 mmHgduring exposure and cementation. A longitudinal incision was created over the midline of the knee. Sharp dissection was taken through subcutaneous tissues. Electrocautery was used for hemostasis. A trivector approach to the knee joint was performed. The ACL, anterior horns of the menisci, and fat pad were excised, and a subperiosteal dissection was carried along the posterior medial border of the tibia. Starting midway between the top of the notch in the anterior femoral cortex, I drilled a 9 mm diameter hole parallel to the anterior cortex to minimize flexion of the femoral component and promote patella tracking. I verified the existence of a 5-10 mm bone bridge between the posterior aspect of the hole and the anterior limit of the intercondylar notch. An intraosseous positioning mary jo was inserted 10 cm into the femur perpendicular to the distal joint line and parallel to the anterior cortex. I used a distal femoral referencing guide that compensated 2 mm when the cartilage was worn on the distal medial femoral condyle, and 2 mm when the cartilage was worn on the distal lateral femoral condyle. The basis for setting the distal and posterior femoral resection guide is knowing that the varus and valgus grade II to IV Kellegren-Phan osteoarthritic knees have negligible bone wear at 0? and 90? and that the mean full-thickness cartilage wear approximates 2 mm. I measured the thickness of distal femoral resections with a caliper to +/- 0.5 mm. The thickness of each resection was adjusted to match the thickness of the respective condyle of the femoral component within 0.5 mm of target after compensating for cartilage wear and kerf. When the distal resection was 1-2 mm too thin, a recut guide was used to adjust the cut. When the distal resection was too thick, a 1 or 2 mm thick washer was fixed to the back of the 4-in-1 chamfer block to alf a corrective gap between the femoral component and distal femur. I set posterior femoral referencing guide at 0? orientation to position the pin holes for the 4 in 1 chamfer block. The fani wing measured the width of the distal femoral resection and selected the size of the 4 in 1 chamfer block and femoral component. The AP sizer confirmed the size. I measured the thickness of the posterior femoral resections with a caliper before making the anterior and chamfer cuts. I adjusted the thicknesses of each resection to match the thickness of the respective condyle of the femoral component within +/-0.5 mm after compensating for cartilage wear and curve. When a posterior resection femoral resection was 1-2 mm too thick or thin a corrective correction was made by shifting or rotating the 4 in 1 chamfer block as needed. The chamfer block was secured in the correct position with compression screws. The anterior and chamfer femoral resections were made. These caliper measurements and corrections verified that the femoral component was set coincident with the patient's pre-arthritic distal and posterior femoral joint lines. I removed all the medial and lateral femoral and tibial osteophytes to restore the pre arthritic length of the medial and lateral collateral ligaments. I macho AP lines along the major axis of the lateral tibial plateau in between the tibial spines which identified the flexion extension plane of the knee. A conventional extramedullary tibial resection guide was applied to the ankle. An fani wing was placed medially in the saw slot. The varus valgus angle of the tibial resection guide was adjusted until the guide paralleled the proximal tibial articular surface after compensating for cartilage and bone wear. The slope of flexion extension angle of the tibial resection guide was adjusted until the fani wing paralleled the slope of the medial tibia after compensating for wear. The AP axis of the tibial resection guide was adjusted parallel to the two lines. The proximal tibia was resected, partially releasing the insertion of the posterior cruciate ligament. The thickness of the medial and lateral lateral tibial condyle was measured at the base of the tibial spines. I visually verified the slope of the medial border of the resection was parallel to the patient's pre arthritic slope after compensating for cartilage and bone wear. I removed the remnants of the posterior horns of the menisci and posterior osteophytes and cauterized the inferior lateral genicular vessels. The Aquamantys bipolar device was also used to for additional hemostasis. When the knee had a preoperative flexion contracture of 20? or more I teased the capsule off the posterior femur with a curved 3 quarter-inch osteotome. I administered the posterior femoral periosteal injection by delivering 10 cc using a 20 gauge spinal needle at the most medial and 10 cc at the most lateral femoral spur surface which reduced the risk of injury to the posterior neurovascular structures. I followed 6 options in a decision tree to fine tune the varus valgus and posterior slope orientation of the tibial component to restore the patient's pre arthritic tibial joint line and limb alignment. First, I adjusted the varus-valgus orientation of the proximal tibia resection working in 1 degree to 2 degree increments until there was negligible medial and lateral lift off of the distal femoral and proximal tibial resection from the spacer block during a varus valgus laxity assessment in extension. I selected the largest anatomic shape trial tibial base plate that fit within the cortical boundary of the proximal tibial resection. The base plate was best fit parallel to the cortical boundary which set the Internal-external orientation of the anterior to posterior and medial to lateral positions. The best fit method set the AP axis of the tibial base plate and insert parallel to the flexion extension plane of the pre arthritic knee. I pinned the trial tibial base plate, prepared the cruciate slot, and fixed the base plate to the tibia with the cruciate stem. I inserted the trial femoral component. The knee was placed in full extension. Varus valgus laxity is of the knee with trial components were assessed. When asymmetric laxity was observed a 1-2 degree varus or valgus recut guide was used to fine tune the tibial resection until the laxity was 1 degree or less in full extension like the nome knee. The following steps determined the optimal insert thickness within +/-1 mm. First I inserted an insert goniometer that matched the thickness of the spacer block. I reduced the patella and then with the knee in maximum extension, I verified the knee hyperextended a few degrees and had negligible varus valgus laxity, like the pre arthritic knee. Next, I measured the external tibial orientation which was the angle the insert goniometer intersected the sagittal line on the medial condyle of the femoral trial component. Then with the knee in 15-30 degrees flexion I verified a 3-4 mm gap in the lateral compartment and no gap in the medial compartment during a 2nd varus valgus laxity test. Next, I placed the knee in 90? of flexion and the foot resting on the operating table and measured the internal tibial orientation. I repeated the steps until I identified the insert thickness that provided the highest external tibia orientation in extension and the highest internal tibial orientation at 90? flexion without anterior lift-off of the insert from the tibial base plate. The insert with this thickness was implanted. I applied a posterior drawer test with the tibia distracted by gravity and verified no posterior subluxation of the tibia relative to the femur. The thickness of the nome patella was measured with a caliper. The patella was resected using the oscillating saw. The best fitting anatomic patella button was selected. The fixation holes were drilled. When the patella and patella buttons combined thickness was thicker than the nome patella, the patella was recut. The patella remained centered on the trochlea and tracked well throughout the entire arc of flexion and extension. I used pulse lavage to clean the bony surfaces of debris and dried bone. I cemented the tibial, femoral, and patellar components using 1 bag of methylmethacrylate with Gentamycin, then rechecked the stability at full extension, 15-30 degrees, and 90? flexion and verified mormon of the entire arc of motion of the knee. The circulating nurse confirmed the sponge and needle counts were correct. I used pulse lavage to rinse the joint and wound. The extensor mechanism was closed with interrupted #1 Vicryl suture and #1 running Stratafix suture. The subcutaneous layer was closed with interrupted #1 Vicryl suture followed by 2-0 Stratafix and 3-0 Stratafix. Steri-Strips placed on the skin. Silver impregnated occlusive dressing applied to the wound. A light gauze wrap and Louis bandage were placed. The patient was transferred to the recovery room in stable condition. There were no complications. Implants Medacta GMK spheriKA Femoral component SpheriKA size 5, tibial component size 4, vitamin-E flex insert, thickness 14mm, Anatomic patella implant size 2. Estimated Blood Loss 200 Drains No Pathology None sent Complications No immediate complications Condition Stable Disposition PACU [facility] Billing Surgery - Charge Forward: Surgery Billing
[2025-03-07] MEDS: oxyCODONE HCL (*CRX) 5 MG TAB IR PO (14:20)
--- NOTE | 2025-03-07 15:13 | ADMGEN ---
This patient, Reanna Kramer, was admitted to [facility] Surg Room 319-01. Patient/family oriented to hospital policies and general routines including ID bracelet, bed and alarms, visiting hours, pain management, procedures, bathroom and other care routines, personal items, smoking policy, room service/diet, and visiting hours. Information on how to activate the Rapid Response Team has been discussed. Patient/Family are encouraged to report perceived risks to care and to ask questions if they do not understand what they are told or what they should do. Report received from Sabrina VELASQUE[facility] PACU
--- NOTE | 2025-03-07 15:37 | P.CONIM_ITS ---
Assessment and Plan Assessment and plan (1) Status post total left knee replacement: Code(s): Z96.652 - Presence of left artificial knee joint Status: Acute Assessment and Plan: On 03/07/2025 Orthopedics manage pain Okay for regular diet Postop antibiotics Aspirin b.i.d. (2) Diastolic dysfunction: Code(s): I51.89 - Other ill-defined heart diseases Status: Acute Assessment and Plan: Patient not on home diuretics Monitor for fluid overload after OR (3) Chronic kidney disease, stage 3a: Code(s): N18.31 - Chronic kidney disease, stage 3a Status: Acute Assessment and Plan: BMP in the morning to monitor (4) Hypertension: Code(s): I10 - Essential (primary) hypertension Status: Acute Assessment and Plan: Continue Norvasc HPI Date of Consult Consult date: 03/07/25 Requesting Physician: Frankie Ordaz MD Primary Care Provider: Rafael Hernández MD Consult Narrative Reason for consult: Medical management Narrative: Reanna rKamer is a 79 year old female with past medical history of left knee osteoarthritis presents to the hospital for a planned total left knee arthroplasty by Orthopedics. Patient seen after OR. Patient has no postop nausea or vomiting, has been up to the bathroom able to void and pain is controlled. Denies complaints. Preop lab work within normal limits. Review of Systems Review of Systems: 12 systems were reviewed and are negativ e except for as per HPI. PMFSH Past Medical History Medical History (Updated 03/07/25 @ 15:42 by Shana Olivares, SAMANTHA) Chronic headache Aortic atherosclerosis (2021) CXR 07/2020 Moderate aortic valve regurgitation Diastolic dysfunction 04/2020 Thoracic aortic aneurysm Obstructive sleep apnea Temporal arteritis 12/2017 Polymyalgia rheumatica Pure hypercholesterolemia, unspecified Surgical History Surgical History (Updated 03/07/25 @ 17:19 by Rafael Hernández MD) History of total left knee replacement (02/2025) Family History Family History Sibling Breast cancer Family history of arthritis Sibling Breast cancer Mother Cerebrovascular accident Family history of arthritis Heart disease Father Hypertension Social History Social History Smoking status: Never smoker Second hand tobacco smoke exposure: No Alcohol intake: unknown Substance use: never Substance use type: does not use Do You Feel Safe in your Home?: Yes Lack of Transportation: No Lack of Food: Never True Current Housing: I Have Housing Concerned About Future Housing: No Difficulty Paying Gas/Electric Bills: No Difficulty Paying for Meds: No Currently Unemployed: No Education: High School Diploma/GED Difficulty w/ Childcare or Family Care: No Living arrangements: alone Occupation/Education: retired Gender identity (if verbalized by the patient): Female Sexual Orientation (if Verbalized by the Patient): Straight or Heterosexual Spiritual care concerns: No Agree to blood products: Yes Meds Home Medications and Allergies Home Medications ?Medication ?Instructions ?Recorded ?Confirmed ?Type amlodipine 10 mg-benazepril 20 mg 1 cap PO DAILY 12/0503/07/25 History capsule atorvastatin 40 mg tablet 40 mg PO DAILY 12/06/19/ History metoprolol succinate 200 mg 200 mg PO DAILY 12/06/19 0 03/07/25 History tablet,extended release 24 hr budesonide 160 mcg-glycopyr 9 2 inh inhalation BID 02/17/25 History mcg-formot 4.8 mcg/actuation HFA inhaler (Breztri Aerosphere) hydralazine 25 mg tablet 25 mg PO TID 08/26/21 History aspirin 81 mg tablet,delayed 81 mg PO DAILY 09/27/21 0 03/07/25 History release (Adult Aspirin Regimen) solriamfetol 75 mg tablet (Sunosi) 150 mg PO DAILY 09/2803/07/25 History mometasone 50 mcg/actuation nasal 2 spray intranasal D AILY 12/18/22 02/17/25 History spray albuterol sulfate 90 mcg/actuation 1 inh inhalation Q4 H PRN shortness 01/15/24 02/17/25 History aerosol inhaler of breath or wheezing acetaminophen 500 mg tablet 1,000 mg PO Q6H PRN pain 0 02/17/25 02/17/25 History (Acetaminophen Extra Strength) Held on 03/07/25. Instructions: Resume on 03/14/25. Oxycodone has Tylenol in it. Do not take more than 4,000 mg in 24 hours. multivitamin (Daily Multi-Vitamin 1 tablet PO DAILY 02/17/25 History tablet) aspirin 81 mg tablet,delayed 81 mg PO BID 14 days #28 tabs 03/07/25 Rx release meloxicam 15 mg tablet 15 mg PO DAILY #30 tabs 02/08 Rx oxycodone-acetaminophen 5 mg-325 1 - 2 tablet PO Q4-6H PRN pain 7 03/07/25 Rx mg tablet days #30 tabs prednisone 5 mg tablet 5 mg PO DAILY 3 weeks #21 ta bs 03/07/25 Rx Allergies Allergy/AdvReac Type Severity Reaction Status Date / Time No Known Allergies Allergy Verified 03/07/25 09:17 Vital Signs Vital Signs - 24 hr 03/07/25 08:35 03/07/25 12:34 03/07/25 12:50 Temperature 97.4 F L 97.3 F L Pulse Rate 67 68 67 Respiratory Rate 20 17 14 Blood Pressure 144/45 H 128/49 L 123/57 L Pulse Oximetry 100 100 100 Oxygen Delivery Room Air Simple Face Mask Simple Face Mask Oxygen Flow Rate 8 8 03/07/25 13:05 03/07/25 13:20 03/07/25 13:35 Temperature Pulse Rate 63 60 62 Respiratory Rate 14 12 14 Blood Pressure 125/48 L 119/48 L 114/48 L Pulse Oximetry 96 99 100 Oxygen Delivery Room Air Nasal Cannula Nasal Cannula Oxygen Flow Rate 2 2 03/07/25 13:50 03/07/25 14:00 03/07/25 14:30 Temperature Pulse Rate 71 57 L 63 Respiratory Rate 18 12 14 Blood Pressure 119/49 L 117/53 L 123/49 L Pulse Oximetry 100 100 100 Oxygen Delivery Nasal Cannula Nasal Cannula Nasal Cannula Oxygen Flow Rate 2 2 2 03/07/25 14:42 Temperature Pulse Rate 73 Respiratory Rate 14 Blood Pressure 116/50 L Pulse Oximetry 94 Oxygen Delivery Room Air Oxygen Flow Rate Exam Narrative: General: well appearing, appears stated age. HEENT: normocephalic, atraumatic. Mucous membranes moist. EOMI, PERRLA, bilateral sclera anicteric, no conjunctival injection. Neck supple without JVD, lymphadenopathy, or bruit. Respiratory: clear to ascultation bilaterally. No rales/rhonic/wheezes. Cardiovascular: Regular rate and rhythm, normal S1-S2 upon ascultation. No murmurs, rubs, or clicks. PMI is nondisplaced, capillary refill less than 3 second. Abdomen: Soft, round, no pulsatile masses, nondistended and nontender. No rebound, no guarding. No CVA tenderness, no hepatosplenomegaly. Bowel sounds present to all four quadrants. No high pitch or tinkling sounds, resonant to percussion. Extremities: No cyanosis, clubbing, or edema present. Pulses are palpable 2/2. Left lower extremity surgical dressing intact Neuro: Alert and orientated x 4. PERRLA. Cranial nerves 2-12 intact without focal deficit. Skin: Warm, dry, and intact, without rash, erythema, or lesion. Psych: pleasant, cooperative, normal speech, normal affect, no hallucinations, no dysarthia Quality VTE Prophylaxis VTE prophylaxis: mechanical ordered Hospitalist [facility] Advance Care Plan I have confirmed that the patient's Advanced Care Plan is present, code status is documented, or surrogate decision maker is listed in patient medical record.: Yes Medication Reconciliation I have utilized all available resources to obtain, update and review the patients current medications (includes all prescriptions, OTC, herbals, cannabis, and nutritional supplements).: Yes
[2025-03-07] MEDS: MELOXICAM 7.5 MG TABLET PO (16:38)
[2025-03-07] MEDS: SENNA/DOCUSATE SODIUM TABLET 2 TAB PO (16:38)
[2025-03-07] MEDS: ACETAMINOPHEN 325 MG TABLET 650 MG PO ×2 (16:38→20:33)
[2025-03-07] MEDS: ATORVASTATIN 40 MG TABLET PO (16:39)
[2025-03-07] MEDS: oxyCODONE/ACETAMINOPHEN (*CRX) 5-325 MG TABLET 1 TABLET PO (17:58)
[2025-03-07] MEDS: METOPROLOL SUCCINATE EXT REL 100 MG TABCR 200 MG PO (20:32)
[2025-03-07] MEDS: FAMOTIDINE 20 MG TABLET PO (20:33)
[2025-03-07] MEDS: ASPIRIN 81 MG ENTERIC TABLET PO (20:33)
[2025-03-08 00:28] VITALS: BP 111/49; PULSE 71; RESP 16; TEMP 36.3; O2SAT 95
[2025-03-08] MEDS: ceFAZolin 2 GM in SODIUM CHLORIDE 0.9% IV 50 ML 100 ML IVPB ×2 (02:27→08:39)
[2025-03-08] MEDS: HYDROmorphone HCL INJ (*CRX) 1 MG/ML SYR IV PUSH (02:32)
[2025-03-08 04:28] VITALS: BP 118/48; PULSE 68; RESP 16; TEMP 36.3; O2SAT 92
[2025-03-08 06:32] LABS: Hematocrit 35.4 % (37.0-47.0); Hemoglobin 11.0 g/dL (12.0-15.0); Immature Granulocyte Percent A 0.4 % (0-0.5); Lymphocytes Absolute Auto 1.00 K/mm3 (0.9-3.2); Mean Corpuscular HGB Conc 31.1 g/dl (32-36); Mean Corpuscular Hemoglobin 28.0 pg (26-34); Mean Corpuscular Volume 90.1 fl (80-100); Nucleated Red Blood Cells Absolute Auto 0.000 K/mm3 (0.0-0.012); Nucleated Red Blood Cells Perc 0.0 % (0.0-0.2); Platelet Count Result 234 k/mm3 (150-375); Red Blood Count 3.93 M/mm3 (4.2-5.4); White Blood Count 13.6 K/mm3 (4.5-10.0)
[2025-03-08 06:52] LABS: Anion Gap 8 mmol/L (4-12); Blood Urea Nitrogen 24 mg/dL (7-17); Calcium 8.4 mg/dL (8.4-10.2); Carbon Dioxide 25 mmol/L (22-30); Chloride 101 mmol/L (98-107); Estimated CRCL calculation 38 ml/min; Estimated Glomerular Filt Rate 54; Glucose 112 mg/dL (65-110); Potassium 4.3 mmol/L (3.4-5.0); Sodium 134 mmol/L (137-145)
[2025-03-08] MEDS: FLUTICASONE/UMECLIDIN/VILANTER 100-62.5-25 MCG ELLIPTA 1 PUFF INHALATION (07:57)
[2025-03-08 07:58] VITALS: O2SAT 92
[2025-03-08] MEDS: ACETAMINOPHEN 325 MG TABLET 650 MG PO (08:36)
[2025-03-08] MEDS: SENNA/DOCUSATE SODIUM TABLET 2 TAB PO (08:36)
[2025-03-08] MEDS: FAMOTIDINE 20 MG TABLET PO (08:36)
[2025-03-08] MEDS: ASPIRIN 81 MG ENTERIC TABLET PO (08:37)
[2025-03-08] MEDS: MELOXICAM 7.5 MG TABLET PO (08:37)
== END 2025-03-08 11:10 | disposition home or self-care (01) ==
LOC: ANHSURGERY 08:24 → ANH3MEDSUR 14:49
PROVIDERS: Physician Assistant Surgical; PCP Family Medicine Adolescent Medicine; Visit Provider Orthopaedic Surgery
PROC: (CPT 27447; principal; 2025-03-07 10:30)
DX: M17.12 Unilateral primary osteoarthritis, left knee (principal); M25.762 Osteophyte, left knee; I12.9 Hypertensive chronic kidney disease with stage 1 through stage 4 chronic kidney disease, or unspecified chronic kidney disease; N18.31 Chronic kidney disease, stage 3a; G47.33 Obstructive sleep apnea (adult) (pediatric); E78.00 Pure hypercholesterolemia, unspecified; M35.3 Polymyalgia rheumatica; R51.9 Headache, unspecified; I70.0 Atherosclerosis of aorta; I50.30 Unspecified diastolic (congestive) heart failure; I35.1 Nonrheumatic aortic (valve) insufficiency; I51.89 Other ill-defined heart diseases; Z79.51 Long term (current) use of inhaled steroids; Z79.82 Long term (current) use of aspirin; Z79.891 Long term (current) use of opiate analgesic; Z79.52 Long term (current) use of systemic steroids; Z86.79 Personal history of other diseases of the circulatory system; Z80.3 Family history of malignant neoplasm of breast; Z82.49 Family history of ischemic heart disease and other diseases of the circulatory system
CPT/HCPCS: 27447; 36415; 73560; 80048; 85025; 86850; 86900; 86901; 94640; 97110; 97116; 97161; 97166; C1776; J0690; A9270; C1713; J0166; J1100; J1171; J1885; J2270; J2405; J2704; J2795; J3010; J7120; J7512